=== PATIENT | male | born 1985 | race Caucasian/White ===

== ENCOUNTER 2016-06-03 07:49 | Emergency (ER) | payer SELFPAY ==
[2016-06-03] MEDS ORDERED: ACETAMINOPHEN 325 MG TABLET PO ONE (08:13)
--- NOTE | 2016-06-03 08:15 | ER Document Report ---
HPI - HPI Patient complains to provider of: fall Onset: Other - 2 days ago Onset/Duration: Persistent Quality of pain: Achy Pain Level: 4 Context: Patient states that he tripped over a toy and fell down 12 stairs in his house 2 days ago. Patient states that he fell face first down his stairs and hit his head on a door when he landed. Patient does report that he had a brief loss of consciousness 2 days ago but none since then. Patient states that yesterday he had some nausea and vomiting with a nosebleed that he attributes to the vomiting. Patient denies any nausea, vomiting or epistaxis today. Patient states that whenever he woke up today he had white dots in his field of vision for about 5 minutes which worried him and prompted him to call EMS today as his mother was at work and cannot bring him to the hospital. Patient states that his vision has since returned to normal but he continues with frontal head pain and left lateral neck pain. Patient states that light does make his headache pain worse. Exacerbated by: Other - Light Relieved by: Denies Similar symptoms previously: No Recently seen / treated by doctor: No - ROS ROS below otherwise negative: Yes Systems Reviewed and Negative: Yes All other systems reviewed and negative - CONSTITUTIONAL Constitutional: DENIES: Fever, Chills - EENT EENT: REPORTS: Eye problems. DENIES: Sore Throat - NEURO Neurology: REPORTS: Headache. DENIES: Weakness - CARDIOVASCULAR Cardiovascular: DENIES: Chest pain - RESPIRATORY Respiratory: DENIES: Trouble Breathing, Coughing - GASTROINTESTINAL Gastrointestinal: DENIES: Abdominal Pain, Nausea, Patient vomiting - MUSCULOSKELETAL Musculoskeletal: REPORTS: Neck Pain. 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 IN LAST 30 DAYS: No - HEENT HEENT: Atraumatic, Normal ENT Exam, Normocephalic, PERRLA Notes: No hemotympanum, no raccoon or Klein signs - NECK Neck: Other - Patient with left paraspinal cervical tenderness, no midline step- off, tenderness, or deformity. negative: Lymphadenopathy-Left, Lymphadenopathy- Right - RESPIRATORY Respiratory: Breath Sounds Normal, No Respiratory Distress O2 Sat by Pulse Oximetry: 96 - CARDIOVASCULAR Cardiovascular: Regular Rate, Regular Rhythm, No Murmur - BACK Back: Normal Inspection. negative: CVA Tenderness-Right, CVA Tenderness-Left Notes: No spinal midline tenderness, step-off, or deformity - MUSCULOSKELETAL/EXTREMETIES Musculoskeletal/Extremeties: CHENTE GREY - NEURO Level of Consciousness: Awake, Alert, Appropriate Motor/Sensory: No Motor Deficit, No Sensory Deficit - DERM Integumentary: Warm, Dry, No Rash Course - Re-evaluation Re-evalutation: 06/03/16 08:[address] Saucedo who agrees with plan for CT imaging 06/03/16 09:12 Discussed worsening signs or symptoms that patient should return immediately for. Patient verbalized understanding and agrees with plan of care. - Vital Signs Vital signs: Temp Pulse Resp BP Pulse Ox 98.5 F 95 18 146/95 H 96 06/03/16 07:56 06/03/16 07:56 06/03/16 07:56 06/03/16 07:56 06/03/16 07:56 - Diagnostic Test Radiology reviewed: Reports reviewed Discharge - Discharge Clinical Impression: Elevated blood pressure reading Head injury Qualifiers: Encounter type: initial encounter Qualified Code(s): S09.90XA - Unspecified injury of head, initial encounter Cervical strain, acute Qualifiers: Encounter type: initial encounter Qualified Code(s): S16.1XXA - Strain of muscle, fascia and tendon at neck level, initial encounter Condition: Stable Disposition: HOME, SELF-CARE Instructions: Head Injury Precautions ([facility]), Neck Injury (Cervical Strain) ([facility] ), Acetaminophen Additional Instructions: Return immediately for any new or worsening symptoms Followup with your primary care provider, call tomorrow to make a followup appointment Your blood pressure was elevated today, recheck with primary doctor in 2 days to have this reevaluated. Prescriptions: Naproxen [Naprosyn 250 Nmg Tablet] 1 tab PO BID #14 tablet Forms: Elevated Blood Pressure Referrals: [facility] [Provider Group] - Follow up tomorrow
[2016-06-03 09:19] VITALS: BP 127/96
== END 2016-06-03 09:11 | disposition home or self-care (01) ==
LOC: ER 07:49
DX: S09.90XA Unspecified injury of head, initial encounter (principal); S16.1XXA Strain of muscle, fascia and tendon at neck level, initial encounter; R03.0 Elevated blood-pressure reading, without diagnosis of hypertension; R11.2 Nausea with vomiting, unspecified; W10.9XXA Fall (on) (from) unspecified stairs and steps, initial encounter; F17.210 Nicotine dependence, cigarettes, uncomplicated
CPT/HCPCS: 70450; 72125; 99284

== ENCOUNTER 2016-08-22 10:59 | Inpatient (IN) | payer SELFPAY ==
[2016-08-22 12:07] LABS: BLOOD UREA NITROGEN 9 mg/dL (7-20); CALCIUM 9.7 mg/dL (8.4-10.2); CARBON DIOXIDE 16 mmol/L (22-30); CHLORIDE 95 mmol/L (98-107); CREATININE RESULT 0.95 mg/dL (0.52-1.25); GLUCOSE 203 mg/dL (75-110); POTASSIUM 4.3 mmol/L (3.6-5.0)
[2016-08-22 12:08] LABS: ALCOHOL < 10 mg/dL (NONE DETECTED)
[2016-08-22 12:15] LABS: APPEARANCE,URINE SLIGHTLY-CLOUDY; BILIRUBIN,URINE NEGATIVE (NEGATIVE); GLUCOSE, URINE NEGATIVE (NEGATIVE); KETONES,URINE 20 mg/dL (NEGATIVE); LEUKOCYTE ESTERASE,URINE NEGATIVE (NEGATIVE); NITRITE,URINE NEGATIVE (NEGATIVE); PROTEIN,URINE >=500 mg/dL (NEGATIVE); URINE SPECIFIC GRAVITY 1.026; UROBILINOGEN,URINE NEGATIVE mg/dL (<2.0)
[2016-08-22 12:16] LABS: SODIUM 132.8 mmol/L (137-145)
[2016-08-22 12:20] LABS: CREATINE KINASE MB 0.97 ng/mL (<4.55)
[2016-08-22 12:21] LABS: ANION GAP 22 (5-19); TROPONIN I < 0.012 ng/mL
[2016-08-22 12:24] LABS: URINE BARBITURATES SCREEN NEGATIVE; URINE METHADONE SCREEN NEGATIVE; URINE OPIATES LOW NEGATIVE; URINE PHENCYCLIDINE SCREEN NEGATIVE
[2016-08-22] MEDS ORDERED: LORAZEPAM INJ 2 MG/1 ML VIAL IV ONE (12:40)
--- NOTE | 2016-08-22 12:55 | ER Document Report ---
ED Seizure - General Mode of Arrival: Medic Information source: Patient - HPI Patient complains to provider of: History of seizures - alcohol withdrawal related Preceding symptoms/context: Other - see notes above Injuries: Bit tongue Associated Symptoms: Other - see notes above <MARLENE POZO - Last Filed: 08/22/16 12:40> <DELPHINEGINO - Last Filed: 08/22/16 14:32> - General Chief Complaint: Probable Seizure Stated Complaint: POSSIBLE SEIZURES Time Seen by Provider: 08/22/16 12:35 Notes: 30 year old male with history of seizures related to alcohol withdrawal (3-4 episodes in past 2 years) presents to the ED via EMS after having a seizure earlier this morning. Patient reports he last had alcohol 5 days ago and states that he just wanted to quit. Patient has tried multiple times in the past to quit with the most recent a couple months ago which also resulted in a seizure. Patient has tried to receive in-patient care by [facility], but relapsed again shortly after. Patient reports that today he saw a '[place] and ran down to his mom downstairs and told her that he was about to have a seizure. Patient had a seizure and states that he bit his tongue. Patient also complains of left shoulder pain and states that he believes he has dislocated it since he has a history (5-6 episodes) of left shoulder dislocation. Patient reports that he is able to reduce his shoulder on his own, but was unable to this time. Patient has not seen any provider regarding his shoulder. Patient does not have a primary care provider. (MARLENE POZO) - Related Data Allergies/Adverse Reactions: No Known Allergies Allergy (Verified 06/03/16 07:57) Past Medical History - General Information source: Patient - Social History Smoking Status: Current Every Day Smoker Frequency of alcohol use: Heavy - 1L of liquor daily. Chronic drinking since 27. Drug Abuse: None Family History: Reviewed & Not Pertinent Neurological Medical History: Reports: Hx Seizures - with ETOH withdrawal Past Surgical History: Reports: Hx Tonsillectomy - Immunizations Hx Diphtheria, Pertussis, Tetanus Vaccination: Yes <MARLENE POZO - Last Filed: 08/22/16 12:40> Review of Systems - Review of Systems Constitutional: No symptoms reported EENT: No symptoms reported Cardiovascular: No symptoms reported Respiratory: No symptoms reported Gastrointestinal: No symptoms reported. denies: Vomiting, Blood in vomit Genitourinary: No symptoms reported Male Genitourinary: No symptoms reported Musculoskeletal: See HPI, Other - left shoulder pain Skin: No symptoms reported Hematologic/Lymphatic: No symptoms reported Neurological/Psychological: See HPI, Seizure -: Yes All other systems reviewed and negative <MARLENE POZO - Last Filed: 08/22/16 12:40> Physical Exam - General General appearance: Alert, Other - Unkempt In distress: None - HEENT Head: Normocephalic, Atraumatic, Other - no external signs of trauma Eyes: Normal Extraocular movements intact: Yes Pupils: PERRL Neck: Normal - Respiratory Respiratory status: No respiratory distress Breath sounds: Normal - Cardiovascular Rhythm: Regular Heart sounds: Normal auscultation Pulses: Normal: Radial - Abdominal Inspection: Normal Distension: No distension Tenderness: Nontender - Back Back: Normal - Extremities General upper extremity: Normal inspection - complains of left shoulder pain and attempts to place shouler back in place, Normal ROM General lower extremity: Normal inspection, Normal ROM - Neurological Neuro grossly intact: Yes Cognition: Normal Orientation: AAOx4 [place] Coma Scale Eye Opening: Spontaneous [place] Coma Scale Verbal: Oriented [place] Coma Scale Motor: Obeys Commands Germán Coma Scale Total: 15 Speech: Normal - Psychological Associated symptoms: Normal affect, Normal mood - Skin Skin Temperature: Warm Skin Moisture: Dry Skin Color: Normal <MARLENE POZO - Last Filed: 08/22/16 12:40> Course - Laboratory Result Diagrams: 08/22/16 11:13 08/22/16 11:13 <MARLENE POZO - Last Filed: 08/22/16 12:40> - Laboratory Result Diagrams: 08/22/16 13:19 08/22/16 11:13 <GINO AKERS - Last Filed: 08/22/16 14:32> - Re-evaluation Re-evalutation: 08/22/16 14:30 Patient presents to the emergency department at their his mother called EMS chief complaint seizure. Patient has a history of alcoholism stopped going about 4-5 days ago and has had withdrawal symptoms where he sees about 3-4 times in the past 2 years. He has also been inpatient at [facility] a few months ago was sent home with [employer] which worked temporarily. He says he normally drinks a liter of rum a day. He denies any substance abuse history says his left shoulder is bothering him and he has dislocated multiple times in the past. On examination he is unkempt but alert and oriented 3 in no acute distress blood pressure is stable he slightly tachycardic no respiratory distress left shoulder there is tenderness to the lateral aspect but no obvious swelling deformity limited range of motion due to pain radial ulnar and axillary median nerve intact good pulses and sensation. Heart lungs abdomen is nonacute. Laboratory evaluation EKG showed sinus rhythm no acute electrolyte abnormalities he is dehydrated given IV fluids banana bag and Ativan. No active seizures within the emergency department x-ray of the left shoulder shows a greater tuberosity fracture. Placed him in a sling and swath for that. Spoke with Dr. Leach this can admit patient to the hospital. Do not have orthopedic remote operations producer today we do have orthopedic remote operations producer tomorrow and if he wants to do inpatient evaluation consultation for the shoulder injury. At this time he is admitted to the hospital in stable condition. (GINO AKERS) - Vital Signs Vital signs: Temp Pulse Resp BP Pulse Ox 98.8 F 18 123/76 94 08/22/16 11:18 08/22/16 14:01 08/22/16 14:01 08/22/16 14:01 - Laboratory Laboratory results interpreted by tn: 08/22/16 08/22/16 08/22/16 11:13 11:37 13:19 RDW 16.3 H Plt Count 84 L Seg Neuts % (Manual) 84 H Lymphocytes % (Manual) 5 L Monocytes % (Manual) 2 L Abs Neuts (Manual) 8.7 H Sodium 132.8 L Chloride 95 L Carbon Dioxide 16 L Anion Gap 22 H Glucose 203 H Urine Protein >=500 H Urine Ketones 20 H Urine Ascorbic Acid 40 H Salicylates < 1.0 L Acetaminophen < 10 L Critical Care Note - Critical Care Note Total time excluding time spent on procedures (mins): 55 <GINO AKERS - Last Filed: 08/22/16 14:32> Discharge <MARLENE POZO - Last Filed: 08/22/16 12:40> - Discharge Admitting Provider: Hospitalist Unit Admitted: IMCU <GINO AKERS - Last Filed: 08/22/16 14:32> - Discharge Clinical Impression: alcohol withdrawl seizure, acute dehydration, left closed shoulder fracture Condition: Stable Disposition: ADMITTED INPATIENT Scribe Attestation: 08/22/16 14:29 I personally performed the services described in the documentation reviewed the documentation recorded by my scribe in my presence and it accurately and completely records my words and actions (GINO AKERS) Scribe Documentation - Scribe Written by Scribe:: Christina Lechuga, 08/22/2016 1311 acting as scribe for :: Delphine <MARLENE POZO - Last Filed: 08/22/16 12:40>
[2016-08-22 14:00] LABS: HEMATOCRIT 49.5 % (37.9-51.0); HEMOGLOBIN 16.6 g/dL (13.5-17.0); HGB HCT DIFFERENCE 0.3; MEAN CORPUSCULAR HEMOGLOBIN 31.6 pg (27.0-33.4); MEAN CORPUSCULAR HGB CONC 33.6 g/dL (32.0-36.0); MEAN CORPUSCULAR VOLUME 94 fl (80-97); RED BLOOD COUNT 5.27 10^6/uL (4.35-5.55); RED CELL DISTRIBUTION WIDTH 16.3 % (11.5-14.0); WHITE BLOOD COUNT 9.8 10^3/uL (4.0-10.5)
[2016-08-22 14:04] LABS: BAND NEUTROPHILS % (MANUAL) 5 % (3-5); BASOPHILS % (MANUAL) 0 % (0-2); EOSINOPHILS % (MANUAL) 1 % (0-6); LYMPHOCYTES % (MANUAL) 5 % (13-45); TOTAL CELLS COUNTED 100
[2016-08-22 14:05] LABS: ANISOCYTOSIS 1+; POLYCHROMASIA SLIGHT; TOXIC VACUOLATION PRESENT
[2016-08-22] MEDS ORDERED: OXYCODONE-ACETAMINOPHEN 5-325 MG TABLET PO ONE (14:32)
[2016-08-22] MEDS ORDERED: DEXTROSE 5%-NORMAL SALINE 1,000 ML IV PRN (16:10)
[2016-08-22] MEDS ORDERED: ONDANSETRON HCL INJ/PF 4 MG/2 ML SDV IV PRN (16:11)
[2016-08-22] MEDS ORDERED: GLUCAGON,HUMAN RECOMB 1 MG INJ SUBCUT PRN (16:11)
[2016-08-22] MEDS ORDERED: DEXTROSE 40% GEL 15 GM TUBE PO PRN ×2 (16:11)
[2016-08-22] MEDS ORDERED: DEXTROSE 50%-WATER 25 GM/50 ML DISP.SYRIN IV PRN ×2 (16:11)
[2016-08-22] MEDS: THIAMINE HCL 100 MG in NORMAL SALINE 50 ML IV SCH (16:43)
[2016-08-22 17:56] LABS: ALANINE AMINOTRANSFERASE 95 U/L (21-72); ALBUMIN 4.5 g/dL (3.5-5.0); ALKALINE PHOSPHATASE 97 U/L (38-126); ASPARTATE AMINO TRANSFERASE 137 U/L (17-59); BILIRUBIN,DIRECT 0.5 mg/dL (0.0-0.4); BILIRUBIN,TOTAL 0.8 mg/dL (0.2-1.3); TOTAL PROTEIN 7.8 g/dL (6.3-8.2)
[2016-08-22] MEDS ORDERED: NORMAL SALINE 1000 ML 1,000 ML with POTASSIUM CHLORIDE 20 MEQ, MAGNESIUM SULFATE 8 MEQ,... IV SCH ×5 (18:00)
[2016-08-22] MEDS: OXYCODONE HCL IR 5 MG TABLET PO PRN (18:28)
[2016-08-22] MEDS: ACETAMINOPHEN 325 MG TABLET PO PRN (18:29)
--- NOTE | 2016-08-22 20:42 | HISTORY AND PHYSICAL E ---
History and Physical NAME: MANISHA DIALLO : 1985 AGE: 30Y ADMITTED: 08/22/2016 ROOM: ED20 TIME OF ADMISSION: 1700 hours. PRIMARY CARE PROVIDER: None. CHIEF COMPLAINT: Seizure, left shoulder pain. HISTORY OF PRESENT ILLNESS: This is a 30-year-old male with a history of heavy alcohol abuse and prior history of accidental overdose and involuntary commitment who presents after being abstinence from alcohol for 5 days. Today, he started noticing some visual hallucinations and subsequently had a seizure and fall. He presents with left shoulder pain after the seizure and also a tongue injury presumably from biting his tongue. PAST MEDICAL HISTORY: Alcohol abuse. PAST SURGICAL HISTORY: None. SOCIAL HISTORY: He drinks heavily. He smokes. He denies illegal drug use. 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 FAMILY HISTORY: Positive for anxiety. MEDICATIONS: None. ALLERGIES: No known drug allergies. CODE STATUS: FULL CODE STATUS. REVIEW OF SYSTEMS: He denies fevers, chills, weight loss, weight gain, visual disturbance, headache, hearing loss, dyspnea, cough, hemoptysis, pleurisy, chest pain, paroxysmal nocturnal dyspnea, orthopnea, edema, abdominal pain, nausea, vomiting, diarrhea, constipation, hematemesis, dysuria, urinary urgency or frequency, rashes, wounds, joint pain, joint swelling, focal weakness or numbness, dizziness, polydipsia, polyuria, heat or cold intolerance, depression, anxiety. He did have visual hallucinations earlier in the day. He denies bleeding or bruising. PHYSICAL EXAMINATION: VITAL SIGNS: Temperature 98.9. Blood pressure 125/66. Respiratory rate 15. O2 saturation 97%. GENERAL: He is alert and oriented in no acute distress, answers questions appropriately. HEENT: Normocephalic. Sclerae anicteric. Conjunctivae clear. Extraocular movements intact. Pupils are equal, round, and reactive to light and accommodation. Oropharynx has moist mucous membranes. NECK: Midline trachea. No thyromegaly. RESPIRATORY: Clear to auscultation. No wheezes or rhonchi. CARDIAC: Regular rate and rhythm. No murmurs, gallops, rubs. ABDOMEN: Soft, nontender, nondistended. Positive bowel sounds. No rebound, no guarding. EXTREMITIES: No edema, cyanosis, clubbing. MUSCULOSKELETAL: He has a sling to his left arm. He has pain with any range of motion of his left arm. VASCULAR: He has good radial pulses both hands. NEUROLOGIC: He has good tactile sensation in both upper extremities. He is alert. He is oriented to person, place, and time. Normal speech. Cranial nerves intact. SKIN EXAMINATION: No rashes, wounds, skin lesions. PSYCHIATRIC: Appropriate mood and affect at the time of my evaluation. LABORATORIES/IMAGING: Head CT shows maxillary sinus disease. No acute intracranial process. Left shoulder x-ray shows fracture of the greater tuberosity of the humerus. CBC: White blood count 9.8, hemoglobin 16.6, hematocrit 49.5, platelet count 84. Sodium 132, potassium 4.3, chloride 95, bicarbonate 16, BUN 9, creatinine 0.9, glucose 203, calcium 9.7. Magnesium 1.9. Drug screen negative. Alcohol level less than 10. ASSESSMENT AND PLAN: 1. Seizure. The patient has had prior seizures mostly associated with alcohol use/withdrawal. We will place him in the hospital, put him on seizure precautions. He states he has had some seizures during times when he has not been withdrawing from alcohol so I would like to obtain an EEG as well. Head CT is negative. 2. Alcohol abuse/withdrawal. P.r.n. Ativan. IV thiamine. Check liver function tests. 3. Left shoulder fracture. The patient is immobilized in a sling at this time. There is no Orthopedics director television today, but I will consult them whenever they are on the call schedule. 4. Hyponatremia likely secondary to alcohol abuse. The patient will be given isotonic saline, but mostly this will correct with abstinence from alcohol. 5. Thrombocytopenia. I will avoid pharmacologic deep venous thrombosis prophylaxis until platelet count improves. 60 minutes spent on admission. DICTATING PHYSICIAN: LAKSHMI SCHULZ M.D. [id number] PHY#: [id number] ID: [id number] JOB#: [id number] ACCT: [id number] cc: >
[2016-08-22] MEDS ORDERED: HEPARIN SOD (PORCINE) 5,000 UNIT/ML 1 ML SYRINGE SUBCUT SCH (22:00)
[2016-08-23] MEDS: ACETAMINOPHEN 325 MG TABLET PO PRN ×3 (03:08→15:41)
[2016-08-23] MEDS: OXYCODONE HCL IR 5 MG TABLET PO PRN ×3 (03:26→21:24)
[2016-08-23] MEDS: LORAZEPAM INJ 2 MG/1 ML VIAL IV PRN ×5 (04:33→22:30)
[2016-08-23 06:48] LABS: ABSOLUTE LYMPHOCYTES (AUTO) 0.8 10^3/uL (0.5-4.7); ABSOLUTE MONOCYTES (AUTO) 0.4 10^3/uL (0.1-1.4); ABSOLUTE NEUT (AUTO) 5.4 10^3/uL (1.7-8.2); BASOPHILS % (AUTO) 0.3 % (0-2); EOSINOPHILS % (AUTO) 0.4 % (0-6); HEMATOCRIT 43.5 % (37.9-51.0); LYMPHOCYTES % (AUTO) 11.6 % (13-45); MEAN CORPUSCULAR HEMOGLOBIN 31.8 pg (27.0-33.4); MEAN CORPUSCULAR HGB CONC 33.4 g/dL (32.0-36.0); MEAN CORPUSCULAR VOLUME 95 fl (80-97); MONOCYTES % (AUTO) 6.6 % (3-13); RED BLOOD COUNT 4.57 10^6/uL (4.35-5.55); RED CELL DISTRIBUTION WIDTH 16.2 % (11.5-14.0); SEGMENTED NEUTROPHILS % (AUTO) 81.1 % (42-78); WHITE BLOOD COUNT 6.7 10^3/uL (4.0-10.5)
[2016-08-23 06:50] LABS: BLOOD UREA NITROGEN 8 mg/dL (7-20); CALCIUM 8.8 mg/dL (8.4-10.2); CHLORIDE 99 mmol/L (98-107); CREATININE RESULT 0.85 mg/dL (0.52-1.25); GLUCOSE 98 mg/dL (75-110); MAGNESIUM 2.2 mg/dL (1.6-2.3); PHOSPHORUS 3.1 mg/dL (2.5-4.5); POTASSIUM 4.1 mmol/L (3.6-5.0); SODIUM 132.5 mmol/L (137-145)
[2016-08-23 06:58] LABS: ANION GAP 9 (5-19)
[2016-08-23 06:59] LABS: CARBON DIOXIDE 25 mmol/L (22-30)
[2016-08-23 07:08] LABS: HEMOGLOBIN 14.5 g/dL (13.5-17.0)
--- NOTE | 2016-08-23 07:12 | EKG REPORT ---
SEVERITY:- NORMAL ECG - SINUS RHYTHM : Confirmed by: Porsha Dickens MD 23-Aug-2016 07:11:20
[2016-08-23] MEDS ORDERED: FAMOTIDINE INJ/PF 20 MG/2 ML SDV IV ONE (13:00)
[2016-08-23] MEDS: FAMOTIDINE INJ/PF 20 MG/2 ML SDV IV SCH ×2 (13:44→21:24)
[2016-08-23] MEDS ORDERED: CEFTRIAXONE 1 GM/D5W RTU 1 GM/50 ML RTUPB IV SCH ×2 (14:00→18:00)
--- NOTE | 2016-08-23 17:13 | PDOC CONSULTATION ---
History of Present Illness Admission Date/PCP: 08/22/16 16:11 History of Present Illness: MANISHA DIALLO is a 30 year old male with a seizure. States after the seizure he sustained a fall onto his left shoulder 08/22/16. Patient was brought to the emergency room for workup of his seizure. He states he has seizures approximately 2-3 times a month. Denies previous shoulder issues or injury. Patient states the shoulder is worse with any motion. Denies numbness or tingling. Current pain 10/14. Past Medical History Neurological Medical History: Reports: Seizures - with ETOH withdrawal Past Surgical History Past Surgical History: Reports: Tonsillectomy Social History Smoking Status: Current Every Day Smoker Cigarettes Packs Per Day: 0.5 Frequency of Alcohol Use: Heavy Hx Recreational Drug Use: No Family History Family History: Reviewed & Not Pertinent Parental Family History Reviewed: No Children Family History Reviewed: No Sibling(s) Family History Reviewed.: No Medication/Allergy Home Medications: Hydroxyzine Pamoate [Vistaril 50 mg Capsule] 50 mg PO BID 08/22/16 Trazodone HCl [Desyrel] 100 mg PO QHS 08/22/16 Venlafaxine HCl ER [Effexor Xr 75 mg Cap.sr] 75 mg PO QAM 08/22/16 Allergies/Adverse Reactions: No Known Allergies Allergy (Verified 06/03/16 07:57) Review of Systems Constitutional: PRESENT: night sweats. ABSENT: chills, fever(s), headache(s), weight gain, weight loss Eyes: ABSENT: visual disturbances Ears: ABSENT: hearing changes Cardiovascular: ABSENT: chest pain, dyspnea on exertion, edema, orthropnea, palpitations Respiratory: ABSENT: cough, hemoptysis Gastrointestinal: ABSENT: abdominal pain, constipation, diarrhea, hematemesis, hematochezia, nausea, vomiting Genitourinary: ABSENT: dysuria, hematuria Musculoskeletal: PRESENT: as per HPI Integumentary: ABSENT: rash, wounds Neurological: PRESENT: convulsions. ABSENT: abnormal gait, abnormal speech, confusion, dizziness, focal weakness, syncope Psychiatric: ABSENT: anxiety, depression, homidical ideation, suicidal ideation Endocrine: ABSENT: cold intolerance, heat intolerance, menstrual abnormalities, polydipsia, polyuria Hematologic/Lymphatic: ABSENT: easy bleeding, easy bruising, lymphadenopathy Physical Exam Vital Signs: Temp Pulse Resp BP Pulse Ox 101.0 F H 141 H 20 146/98 H 99 08/23/16 16:28 08/23/16 16:28 08/23/16 16:28 08/23/16 16:28 08/23/16 16:28 Intake & Output 08/22/16 08/23/16 08/24/16 06:59 06:59 06:59 Weight 95.254 kg General appearance: PRESENT: no acute distress, well-developed, well-nourished Head exam: PRESENT: atraumatic, normocephalic Eye exam: PRESENT: conjunctiva pink, EOMI, PERRLA. ABSENT: scleral icterus Ear exam: PRESENT: normal external ear exam Mouth exam: PRESENT: moist, tongue midline Neck exam: PRESENT: full ROM. ABSENT: carotid bruit, JVD, lymphadenopathy, thyromegaly Cardiovascular exam: PRESENT: RRR. ABSENT: diastolic murmur, rubs, systolic murmur Pulses: PRESENT: normal dorsalis pedis pul, +2 pedal pulses bilateral Vascular exam: PRESENT: normal capillary refill GI/Abdominal exam: PRESENT: normal bowel sounds, soft. ABSENT: distended, guarding, mass, organolmegaly, rebound, tenderness Rectal exam: PRESENT: deferred Musculoskeletal exam: PRESENT: other - Left shoulder: Tenderness palpation laterally along the proximal humerus. Intact elbow wrist and hand range of motion. No sensory deficits. Mild swelling. No pain with passive stretch. No evidence of deformity. Neurological exam: PRESENT: alert, awake, oriented to person, oriented to place , oriented to time, oriented to situation, CN II-XII grossly intact. ABSENT: motor sensory deficit Psychiatric exam: PRESENT: appropriate affect, normal mood. ABSENT: homicidal ideation, suicidal ideation Skin exam: PRESENT: dry, intact, warm. ABSENT: cyanosis, rash Results Laboratory Results: 08/23/16 06:27 08/23/16 06:27 08/23/16 08/23/16 06:27 06:27 WBC 6.7 RBC 4.57 Hgb 14.5 D Hct 43.5 MCV 95 MCH 31.8 MCHC 33.4 RDW 16.2 H Plt Count 57 L Seg Neutrophils % 81.1 H Lymphocytes % 11.6 L Monocytes % 6.6 Eosinophils % 0.4 Basophils % 0.3 Absolute Neutrophils 5.4 Absolute Lymphocytes 0.8 Absolute Monocytes 0.4 Absolute Eosinophils 0.0 Absolute Basophils 0.0 Sodium 132.5 L Potassium 4.1 Chloride 99 Carbon Dioxide 25 Anion Gap 9 BUN 8 Creatinine 0.85 Est GFR ( Amer) > 60 Est GFR (Non-Af Amer) > 60 Glucose 98 Calcium 8.8 Phosphorus 3.1 Magnesium 2.2 Impressions: Head CT 08/22/16 11:30 IMPRESSION: Bilateral maxillary sinus disease with no acute intracranial pathology. Shoulder X-Ray 08/22/16 12:39 IMPRESSION: Fracture of the greater tuberosity. Chest X-Ray 08/23/16 12:28 IMPRESSION: NO ACUTE RADIOGRAPHIC FINDING IN THE CHEST. Status: Image reviewed by me - I have the patient's radiographs of the left shoulder which demonstrate minimally displaced greater tuberosity fracture there is some mild displacement posterior and lateral. No evidence of dislocation. Assessment & Plan - Diagnosis (1) Fracture of greater tuberosity of left humerus Qualifiers: Encounter type: initial encounter Fracture type: closed Fracture alignment: nondisplaced Qualified Code(s): S42.255A - Nondisplaced fracture of greater tuberosity of left humerus, initial encounter for closed fracture Is this a current diagnosis for this admission?: YesPlan: X-rays demonstrate a displaced greater tuberosity fracture the current position of less than 5 mm of displacement would recommend conservative treatment. Patient will continue a sling. Will follow up in the office with me in 10-14 days.
[2016-08-23] MEDS: THIAMINE HCL 100 MG in NORMAL SALINE 50 ML IV SCH (19:38)
--- NOTE | 2016-08-23 19:57 | PROGRESS NOTE E ---
Progress Note NAME: MANISHA DIALLO : 1985 AGE: 30Y DATE: 08/23/2016 ROOM: 409 TIME: Time spent managing patient was 35 minutes. SUBJECTIVE: The patient has had no further seizures. He has been acting appropriately. He has had fevers. He denies any cough or shortness of breath. He has been having chills and sweats as well. OBJECTIVE: VITAL SIGNS: Temperature 99.9 currently, T-max 101.0. GENERAL: He is alert and oriented x3, in no acute distress. HEENT: Sclerae are nonicteric. Oropharynx has moist mucous membranes. He has a left-sided tongue laceration. NECK: Midline trachea. No adenopathy. RESPIRATORY: Clear to auscultation. No wheezing or rhonchi. CARDIAC: Regular rate and rhythm. No murmurs, gallops, or rubs. ABDOMEN: Soft, nontender, and nondistended. Positive bowel sounds. No rebound. No guarding. EXTREMITIES: No edema, cyanosis, or clubbing. DIAGNOSTIC DATA: Labs: White count 6.7, hemoglobin 14.5, platelets 57. Sodium 133, potassium 4.1, chloride 99, bicarb 25, BUN 8, creatinine 0.8. Chest x-ray shows no acute findings in the chest. ASSESSMENT AND PLAN: 1. SYSTEMIC INFLAMMATORY RESPONSE SYNDROME. MOST LIKELY SOURCE WOULD BE ASPIRATION PNEUMONITIS GIVEN THE PATIENT'S SEIZURES YESTERDAY. HOWEVER, HE HAS NO COUGH OR SHORTNESS OF BREATH AND HIS CHEST X-RAY IS NEGATIVE. I SUPPOSE HE COULD BE GETTING AN INFECTION OF HIS TONGUE LACERATION. I will start him on IV Rocephin for now. Check blood cultures. He was also noted incidentally, on his head CT, to have bilateral maxillary sinus disease. Rocephin should cover this for now. 2. SINUSITIS. IV Rocephin for now. 3. ALCOHOL ABUSE/WITHDRAWAL. Stable on p.r.n. Ativan and IV thiamine. 4. WITHDRAWAL RELATED SEIZURE. EEG is pending. Head CT was negative for intracranial process. 5. HYPONATREMIA. Likely secondary to alcohol abuse. 6. THROMBOCYTOPENIA. Likely secondary to alcohol abuse. 7. LEFT SHOULDER FRACTURE. The patient is immobilized in a sling at this time. Dr. Jones of orthopedics has been consulted. DICTATING PHYSICIAN: LAKSHMI SCHULZ M.D. [id number] PHY#: [id number] ID: [id number] JOB#: [id number] ACCT: [id number] cc: >
[2016-08-24] MEDS ORDERED: LORAZEPAM INJ 2 MG/1 ML VIAL IV PRN ×3 (00:17→00:19)
[2016-08-24] MEDS: LORAZEPAM INJ 2 MG/1 ML VIAL IV PRN (00:20)
[2016-08-24] MEDS: OXYCODONE HCL IR 5 MG TABLET PO PRN (03:57)
[2016-08-24 06:40] LABS: ANION GAP 11 (5-19); BLOOD UREA NITROGEN 13 mg/dL (7-20); CALCIUM 8.7 mg/dL (8.4-10.2); CARBON DIOXIDE 24 mmol/L (22-30); CHLORIDE 100 mmol/L (98-107); CREATININE RESULT 0.93 mg/dL (0.52-1.25); GLUCOSE 91 mg/dL (75-110); MAGNESIUM 2.1 mg/dL (1.6-2.3); PHOSPHORUS 3.7 mg/dL (2.5-4.5); POTASSIUM 3.7 mmol/L (3.6-5.0); SODIUM 135.1 mmol/L (137-145)
[2016-08-24 07:18] LABS: ABSOLUTE BASOPHILS # (AUTO) 0.1 10^3/uL (0.0-0.2); ABSOLUTE EOSINOPHILS # (AUTO) 0.1 10^3/uL (0.0-0.6); ABSOLUTE LYMPHOCYTES (AUTO) 1.5 10^3/uL (0.5-4.7); ABSOLUTE MONOCYTES (AUTO) 0.8 10^3/uL (0.1-1.4); ABSOLUTE NEUT (AUTO) 3.7 10^3/uL (1.7-8.2); BASOPHILS % (AUTO) 1.2 % (0-2); EOSINOPHILS % (AUTO) 1.2 % (0-6); HEMATOCRIT 43.4 % (37.9-51.0); HEMOGLOBIN 15.1 g/dL (13.5-17.0); HGB HCT DIFFERENCE 1.9; LYMPHOCYTES % (AUTO) 23.9 % (13-45); MEAN CORPUSCULAR HEMOGLOBIN 32.6 pg (27.0-33.4); MEAN CORPUSCULAR HGB CONC 34.7 g/dL (32.0-36.0); MEAN CORPUSCULAR VOLUME 94 fl (80-97); MONOCYTES % (AUTO) 12.7 % (3-13); RED BLOOD COUNT 4.63 10^6/uL (4.35-5.55); RED CELL DISTRIBUTION WIDTH 16.1 % (11.5-14.0); WHITE BLOOD COUNT 6.1 10^3/uL (4.0-10.5)
[2016-08-24] MEDS ORDERED: LORAZEPAM 1 MG TABLET PO PRN (08:43)
[2016-08-24] MEDS ORDERED: NICOTINE 21 MG/24 HR PATCH.TD24 TD PRN (08:57)
[2016-08-24] MEDS ORDERED: THIAMINE HCL 100 MG TABLET PO SCH (10:00)
[2016-08-24 10:28] VITALS: BP 128/87
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
== END 2016-08-24 11:41 | disposition home or self-care (01) | DRG 897 ==
LOC: ER 10:59 → EH 15:28 → UNDOADMIN 15:28 → EH 16:11 → 4N 08-23 16:27
DX: F10.239 Alcohol dependence with withdrawal, unspecified (principal); S42.252A Displaced fracture of greater tuberosity of left humerus, initial encounter for closed fracture; E87.1 Hypo-osmolality and hyponatremia; G40.909 Epilepsy, unspecified, not intractable, without status epilepticus; W19.XXXA Unspecified fall, initial encounter; F17.210 Nicotine dependence, cigarettes, uncomplicated; D69.6 Thrombocytopenia, unspecified; J32.0 Chronic maxillary sinusitis; E86.0 Dehydration; Z79.899 Other long term (current) drug therapy; Z81.8 Family history of other mental and behavioral disorders
CPT/HCPCS: 36415; 70450; 71010; 80048; 80076; 80307; 81001; 82553; 83735; 84100; 84484; 85025; 87040; 93005; 93010; 96374; 99291; J0696; J2060; J3411; J3475; J3480; J3490; J7030; L3650; S0028

== ENCOUNTER 2016-08-29 00:58 | Emergency (ER) | payer SELFPAY ==
[2016-08-29] MEDS ORDERED: DIAZEPAM 5 MG TABLET PO ONE (01:36)
[2016-08-29 02:08] LABS: ABSOLUTE BASOPHILS # (AUTO) 0.2 10^3/uL (0.0-0.2); ABSOLUTE EOSINOPHILS # (AUTO) 0.1 10^3/uL (0.0-0.6); ABSOLUTE LYMPHOCYTES (AUTO) 3.6 10^3/uL (0.5-4.7); ABSOLUTE MONOCYTES (AUTO) 0.9 10^3/uL (0.1-1.4); ABSOLUTE NEUT (AUTO) 3.4 10^3/uL (1.7-8.2); EOSINOPHILS % (AUTO) 0.9 % (0-6); HEMATOCRIT 44.6 % (37.9-51.0); HGB HCT DIFFERENCE 0.4; LYMPHOCYTES % (AUTO) 44.5 % (13-45); MEAN CORPUSCULAR HEMOGLOBIN 31.6 pg (27.0-33.4); MEAN CORPUSCULAR HGB CONC 33.6 g/dL (32.0-36.0); MEAN CORPUSCULAR VOLUME 94 fl (80-97); MONOCYTES % (AUTO) 10.7 % (3-13); RED BLOOD COUNT 4.73 10^6/uL (4.35-5.55); RED CELL DISTRIBUTION WIDTH 16.3 % (11.5-14.0); SEGMENTED NEUTROPHILS % (AUTO) 41.9 % (42-78); WHITE BLOOD COUNT 8.1 10^3/uL (4.0-10.5)
[2016-08-29 02:19] LABS: ALANINE AMINOTRANSFERASE 114 U/L (21-72); ALBUMIN 4.3 g/dL (3.5-5.0); ALCOHOL 285 mg/dL (NONE DETECTED); ALKALINE PHOSPHATASE 91 U/L (38-126); ANION GAP 16 (5-19); ASPARTATE AMINO TRANSFERASE 63 U/L (17-59); BILIRUBIN,DIRECT 0.3 mg/dL (0.0-0.4); BILIRUBIN,TOTAL 0.5 mg/dL (0.2-1.3); BLOOD UREA NITROGEN 9 mg/dL (7-20); CALCIUM 9.4 mg/dL (8.4-10.2); CARBON DIOXIDE 26 mmol/L (22-30); CHLORIDE 107 mmol/L (98-107); CREATININE RESULT 0.81 mg/dL (0.52-1.25); GLUCOSE 99 mg/dL (75-110); POTASSIUM 4.1 mmol/L (3.6-5.0); SODIUM 148.9 mmol/L (137-145); TOTAL PROTEIN 7.8 g/dL (6.3-8.2)
[2016-08-29] MEDS ORDERED: IBUPROFEN 600 MG TABLET PO ONE (02:19)
[2016-08-29] MEDS ORDERED: LIDOCAINE 5% (700 MG) TRANSDERMAL ADH..PATCH TP ONE (02:20)
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
[2016-08-29 02:42] LABS: APPEARANCE,URINE SLIGHTLY-CLOUDY; BILIRUBIN,URINE SMALL (NEGATIVE); GLUCOSE, URINE NEGATIVE (NEGATIVE); KETONES,URINE TRACE mg/dL (NEGATIVE); LEUKOCYTE ESTERASE,URINE NEGATIVE (NEGATIVE); NITRITE,URINE NEGATIVE (NEGATIVE); PROTEIN,URINE 100 mg/dL (NEGATIVE); URINE SPECIFIC GRAVITY 1.038
[2016-08-29 02:43] LABS: URINE BARBITURATES SCREEN NEGATIVE; URINE METHADONE SCREEN NEGATIVE; URINE OPIATES LOW NEGATIVE; URINE PHENCYCLIDINE SCREEN NEGATIVE
[2016-08-29] MEDS: LORAZEPAM 1 MG TABLET PO PRN ×3 (03:59→20:12)
--- NOTE | 2016-08-29 07:51 | EKG REPORT ---
SEVERITY:- OTHERWISE NORMAL ECG - SINUS TACHYCARDIA : Confirmed by: Valerio Rene MD 29-Aug-2016 07:50:56
[2016-08-29] MEDS ORDERED: ACETAMINOPHEN 325 MG TABLET PO ONE (08:21)
--- NOTE | 2016-08-29 10:50 | ER Document Report ---
Doctor's Note Notes: 08/29/16 10:47 : Rounds: Chart reviewed and patient interview. Basically, patient has an alcohol problem, seizures secondary to alcohol withdrawal in the past, depression, and a fracture of the greater tuberosity of the left humerus from a fall from a seizure, on August 23. Patient currently denies feeling suicidal. Lab studies were all normal with the exception of his alcohol level of 285. Vital signs are all normal. Patient is currently receiving Ativan as needed for possible withdrawal seizures. His left shoulder is quite ecchymotic. I reviewed the x-rays which showed only a fracture of the greater tuberosity of the humeral head. Patient has good pulses in the left hand and fingers and good capillary refill. Patient is medically stable for transfer or discharge. Kody Macdonald MD
[2016-08-29] MEDS: OXYCODONE HCL IR 5 MG TABLET PO PRN ×3 (11:48→20:13)
[2016-08-30] MEDS: OXYCODONE HCL IR 5 MG TABLET PO PRN ×2 (00:15→06:03)
[2016-08-30] MEDS: LORAZEPAM 1 MG TABLET PO PRN (06:03)
--- NOTE | 2016-08-30 09:26 | ER Document Report ---
Doctor's Note Notes: 08/30/16 09:26 Patient evaluated at bedside, resting comfortably on stretcher, no needs at this time, chart and lab findings were reviewed as well as vital signs, pending plan and disposition per mental health
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
[2016-08-30 11:59] VITALS: BP 130/75
== END 2016-08-30 12:05 | disposition home or self-care (01) ==
LOC: ER 00:58
DX: F31.9 Bipolar disorder, unspecified (principal); F10.10 Alcohol abuse, uncomplicated; R45.851 Suicidal ideations; R45.850 Homicidal ideations; S42.252A Displaced fracture of greater tuberosity of left humerus, initial encounter for closed fracture; W19.XXXA Unspecified fall, initial encounter; F17.200 Nicotine dependence, unspecified, uncomplicated
CPT/HCPCS: 36415; 80053; 80307; 81001; 85025; 93005; 93010; 99285

== ENCOUNTER 2016-09-02 13:29 | Emergency (ER) | payer SELFPAY ==
--- NOTE | 2016-09-02 14:13 | ER Document Report ---
ED General - General Chief Complaint: Suicidal Ideation Stated Complaint: SUICIDAL IDEATION Time Seen by Provider: 09/02/16 13:47 Mode of Arrival: Ambulatory Information source: Patient Notes: This is a 30-year-old man with a history of alcohol abuse, alcohol withdrawal seizures and a recent left shoulder fracture presents to the emergency room via EMS because of suicidal ideations in the setting of alcohol abuse. TRAVEL OUTSIDE OF THE [place] IN LAST 30 DAYS: No - HPI Onset: Just prior to arrival Onset/Duration: Gradual Quality of pain: No pain Severity: None Pain Level: Denies Associated symptoms: denies: Fever, Shortness of breath Exacerbated by: Denies Relieved by: Denies Similar symptoms previously: Yes Recently seen / treated by doctor: Yes - Related Data Allergies/Adverse Reactions: No Known Allergies Allergy (Verified 06/03/16 07:57) Past Medical History - General Information source: Patient - Social History Smoking Status: Current Every Day Smoker Cigarette use (# per day): Yes - 1 pack per day Chew tobacco use (# tins/day): No Frequency of alcohol use: None Drug Abuse: None Lives with: Family Family History: Reviewed & Not Pertinent - Past Medical History Cardiac Medical History: Reports: None Pulmonary Medical History: Reports: None Neurological Medical History: Reports: Hx Seizures - with ETOH withdrawal Endocrine Medical History: Reports: None Renal/ Medical History: Reports: None Malignancy Medical History: Reports None GI Medical History: Reports: None Musculoskeltal Medical History: Reports None Skin Medical History: Reports None Psychiatric Medical History: Reports: None Traumatic Medical History: Reports: None Infectious Medical History: Reports: None Past Surgical History: Reports: Hx Tonsillectomy - Immunizations Hx Diphtheria, Pertussis, Tetanus Vaccination: Yes Review of Systems - Review of Systems Constitutional: denies: Chills, Fever EENT: No symptoms reported Cardiovascular: No symptoms reported Respiratory: No symptoms reported Gastrointestinal: No symptoms reported Genitourinary: No symptoms reported Male Genitourinary: No symptoms reported Musculoskeletal: No symptoms reported Skin: No symptoms reported Hematologic/Lymphatic: No symptoms reported Neurological/Psychological: See HPI Physical Exam - Vital signs Vitals: Temp Pulse Resp BP Pulse Ox 98.0 F 97 16 134/82 H 94 09/02/16 13:37 09/02/16 13:37 09/02/16 13:37 09/02/16 13:37 09/02/16 13:37 Notes: Physical exam: GENERAL: 30-year-old man, alert and oriented 3, no acute distress. Intoxicated. HEAD: Atraumatic, normocephalic. EYES: Pupils equal round and reactive to light, extraocular movements intact, sclera anicteric, conjunctiva are normal. ENT: TMs normal, nares patent, oropharynx clear without exudates. Moist mucous membranes. NECK: Normal range of motion, supple without lymphadenopathy or JVD. LUNGS: Breath sounds clear to auscultation bilaterally and equal. No wheezes rales or rhonchi. HEART: Regular rate and rhythm without murmurs, rubs or gallops. ABDOMEN: Soft, normoactive bowel sounds. No tenderness to palpation. No guarding, no rebound. No masses appreciated. EXTREMITIES: Patient does have ecchymoses to the left humerus. NEUROLOGICAL: Cranial nerves II through XII grossly intact. Normal speech, normal gait. PSYCH: Normal mood, normal affect. SKIN: Warm, Dry, normal turgor, no rashes or lesions noted. Course - Re-evaluation Re-evalutation: 09/02/16 18:58 : This is a 30-year-old alcoholic with a history of alcohol withdrawal seizures and recent left shoulder fracture secondary to a fall in the setting of alcohol abuse. Patient is brought into the emergency room by EMS with depression and suicidal ideations in the setting of acute alcohol intoxication. His physical exam is remarkable for bruising to the left upper extremity. He is otherwise stable. His alcohol level was quite elevated and he is being observed. I have written for as needed Ativan because he is at risk of alcohol withdrawal seizures but his alcohol level does start to drop lower. Additionally, when he is clinically sober, he will need to be reevaluated for suicidal ideation. - Vital Signs Vital signs: Temp Pulse Resp BP Pulse Ox 98.0 F 95 20 134/82 H 94 09/02/16 13:41 09/02/16 13:41 09/02/16 13:41 09/02/16 13:41 09/02/16 13:41 - Laboratory Result Diagrams: 09/02/16 14:25 09/02/16 14:25 Laboratory results interpreted by me: 09/02/16 09/02/16 09/02/16 14:25 14:25 14:25 RDW 16.6 H Sodium 149.8 H Chloride 108 H AST 60 H Urine Blood SMALL H Salicylates < 1.0 L Acetaminophen < 10 L Serum Alcohol 372 H* Discharge - Discharge Clinical Impression: Suicidal ideation, Acute alcohol intoxication Clinical Impression: (Ruled Out): No ideation Condition: Stable Disposition: PSYCH HOSP/UNIT
[2016-09-02] MEDS ORDERED: ONDANSETRON 4 MG TAB.RAPDIS PO ONE (14:32)
[2016-09-02 14:41] LABS: ABSOLUTE BASOPHILS # (AUTO) 0.2 10^3/uL (0.0-0.2); ABSOLUTE LYMPHOCYTES (AUTO) 2.7 10^3/uL (0.5-4.7); ABSOLUTE MONOCYTES (AUTO) 0.5 10^3/uL (0.1-1.4); ABSOLUTE NEUT (AUTO) 5.7 10^3/uL (1.7-8.2); EOSINOPHILS % (AUTO) 0.3 % (0-6); HEMATOCRIT 46.2 % (37.9-51.0); HEMOGLOBIN 15.5 g/dL (13.5-17.0); HGB HCT DIFFERENCE 0.3; LYMPHOCYTES % (AUTO) 29.8 % (13-45); MEAN CORPUSCULAR HEMOGLOBIN 32.2 pg (27.0-33.4); MEAN CORPUSCULAR HGB CONC 33.7 g/dL (32.0-36.0); MEAN CORPUSCULAR VOLUME 96 fl (80-97); MONOCYTES % (AUTO) 5.1 % (3-13); RED BLOOD COUNT 4.82 10^6/uL (4.35-5.55); RED CELL DISTRIBUTION WIDTH 16.6 % (11.5-14.0); SEGMENTED NEUTROPHILS % (AUTO) 62.8 % (42-78); WHITE BLOOD COUNT 9.1 10^3/uL (4.0-10.5)
[2016-09-02] MEDS: LORAZEPAM 1 MG TABLET PO PRN ×2 (14:43→21:03)
[2016-09-02 14:46] LABS: APPEARANCE,URINE CLEAR; BILIRUBIN,URINE NEGATIVE (NEGATIVE); GLUCOSE, URINE NEGATIVE (NEGATIVE); KETONES,URINE NEGATIVE (NEGATIVE); LEUKOCYTE ESTERASE,URINE NEGATIVE (NEGATIVE); NITRITE,URINE NEGATIVE (NEGATIVE); PROTEIN,URINE NEGATIVE (NEGATIVE); URINE SPECIFIC GRAVITY 1.004; UROBILINOGEN,URINE NEGATIVE mg/dL (<2.0)
[2016-09-02 15:00] LABS: ALANINE AMINOTRANSFERASE 72 U/L (21-72); ALBUMIN 4.6 g/dL (3.5-5.0); ALKALINE PHOSPHATASE 110 U/L (38-126); ANION GAP 18 (5-19); ASPARTATE AMINO TRANSFERASE 60 U/L (17-59); BILIRUBIN,DIRECT 0.3 mg/dL (0.0-0.4); BILIRUBIN,TOTAL 0.6 mg/dL (0.2-1.3); BLOOD UREA NITROGEN 10 mg/dL (7-20); CALCIUM 9.5 mg/dL (8.4-10.2); CARBON DIOXIDE 24 mmol/L (22-30); CHLORIDE 108 mmol/L (98-107); CREATININE RESULT 0.83 mg/dL (0.52-1.25); GLUCOSE 85 mg/dL (75-110); POTASSIUM 4.5 mmol/L (3.6-5.0); SODIUM 149.8 mmol/L (137-145); TOTAL PROTEIN 8.2 g/dL (6.3-8.2)
[2016-09-02 15:01] LABS: URINE BARBITURATES SCREEN NEGATIVE; URINE METHADONE SCREEN NEGATIVE; URINE OPIATES LOW NEGATIVE; URINE PHENCYCLIDINE SCREEN NEGATIVE
[2016-09-02 15:10] LABS: ALCOHOL 372 mg/dL (NONE DETECTED)
--- NOTE | 2016-09-02 15:37 | PSYCHOLOGICAL NOTE ---
Psych Note - Psych Note Psych Note: Patient is a 30 year old male who presented seeking assistance for a psychiatric concern. Patient at this time is acutely intoxicated, with a BAL of 372. Will attempt to evaluate at a later time, closer to legal sobriety.
--- NOTE | 2016-09-02 21:13 | EKG REPORT ---
SEVERITY:- OTHERWISE NORMAL ECG - SINUS TACHYCARDIA : Confirmed by: Phyllis Alfonso 02-Sep-2016 21:11:48
[2016-09-03] MEDS: LORAZEPAM 1 MG TABLET PO PRN ×3 (06:09→17:05)
[2016-09-03] MEDS ORDERED: ACETAMINOPHEN 325 MG TABLET PO ONE (11:05)
--- NOTE | 2016-09-03 11:47 | RADIOLOGY REPORT (SQ) ---
EXAM DESCRIPTION: SHOULDER LEFT 2 OR MORE VIEWS COMPLETED DATE/TIME: 09/03/2016 11:24 am REASON FOR STUDY: recent fracture, fell again, increased pain COMPARISON: 08/22/2016 NUMBER OF VIEWS: Three views. TECHNIQUE: Internal rotation, external rotation, and Y view images acquired of the left shoulder. LIMITATIONS: None. FINDINGS: MINERALIZATION: Normal. BONES: There is a fracture of the greater tuberosity of the humeral head. The humeral neck is intact . JOINTS: No dislocation. VISUALIZED LUNGS AND RIBS: No pneumothorax. No rib fracture. SOFT TISSUES: No radiopaque foreign body. OTHER: No other significant finding. IMPRESSION: There is a fracture of the greater tuberosity that appears stable. TECHNICAL DOCUMENTATION: JOB ID: [id number]- All Rights Reserved
--- NOTE | 2016-09-03 14:52 | ER Document Report ---
ED Psych Disorder / Suicide - General Chief Complaint: ETOH Abuse Stated Complaint: SUICIDAL IDEATION Time Seen by Provider: 09/02/16 13:47 Mode of Arrival: Ambulatory Information source: Patient, Relative, [facility] Records TRAVEL OUTSIDE OF THE [place] 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 Patient initially complained of suicidal ideations, but was noted to be under the influence of alcohol during the statement. Patient today denies suicidal ideations. Patient reports she has no place to stay and does not know where he will go from here. Patient states he is agreeable to follow-up with substance abuse treatment, to include inpatient detox and or outpatient services. Patient acknowledges that he drinks daily, and drinks roughly 1 L of rum per day. Patient is known to this clinician in this department for numerous prior episodes of similar etiology. MotherGail states: the patient needs some psychiatric and dependence help. Mother states she has paid for a hotel for hi m x3 nights, and last night refused when he continued to delay going to get SA help. Mother states the patient called her yesterday, drunk, laying on the side of the road crying and saying he was going to kill himself. Mother states the patient has to stay at a motel and is not allowed to stay in her home due to his chronic alcohol abuse and aggressive behaviors while drunk. Mother states the patient was walking around with an air soft gun and flashing in front of his sister's child, and there is now a protection order preventing him from going to that home. Mother states, "this is ridiculous." She then demanded the names of this clinician, as well as supervising provider and consulting psychiatrist. She states he has mental issues and was diagnosed with Generalized Anxiety Disorder at [facility]. Patient is A&O. Mood is anxious with normal affect. Patient denies suicidal/ homicidal ideations, intent, plan, or means. Patient denies A/V H; delusions not noted. Thought processes were organized. Conversational speech was WNL. Intellectual abilities were estimated within average range. Attention and focus were fair. Insight, judgment, and impulse control were poor. Generalized Anxiety Disorder, per history Alcohol Use Disorder, Severe, per history Patient is psychiatrically cleared and recommended to follow-up with [facility] to voluntarily pursue alcohol detox. Patient does not meet criteria for involuntary commitment, as determined last night by the ER physician and concluded again today as this is an alcohol related incident. When sober, patient denies suicidal ideations. Patient has a lengthy history of similar episodes of similar etiology. I consulted with Dr. Ogden in regards to the care and management of this patient. - Related Data Allergies/Adverse Reactions: No Known Allergies Allergy (Verified 09/03/16 07:02) Past Medical History - General Information source: Patient - Social History Smoking Status: Current Every Day Smoker Cigarette use (# per day): Yes - 1 pack per day Chew tobacco use (# tins/day): No Frequency of alcohol use: None Drug Abuse: None Lives with: Family Family History: Reviewed & Not Pertinent Patient has suicidal ideation: No Patient has homicidal ideation: No - Past Medical History Cardiac Medical History: Reports: None Pulmonary Medical History: Reports: None Neurological Medical History: Reports: Hx Seizures - with ETOH withdrawal Endocrine Medical History: Reports: None Renal/ Medical History: Reports: None. Denies: Hx Peritoneal Dialysis Malignancy Medical History: Reports None GI Medical History: Reports: None Musculoskeltal Medical History: Reports None Skin Medical History: Reports None Psychiatric Medical History: Reports: None Traumatic Medical History: Reports: None Infectious Medical History: Reports: None Past Surgical History: Reports: Hx Tonsillectomy - Immunizations Hx Diphtheria, Pertussis, Tetanus Vaccination: Yes Physical Exam - Vital signs Vitals: Temp Pulse Resp BP Pulse Ox 98.0 F 97 16 134/82 H 94 09/02/16 13:37 09/02/16 13:37 09/02/16 13:37 09/02/16 13:37 09/02/16 13:37 Course - Vital Signs Vital signs: Temp Pulse Resp BP Pulse Ox 97.8 F 60 18 132/88 H 97 09/02/16 20:39 09/03/16 06:05 09/03/16 03:25 09/03/16 06:05 09/03/16 06:05 - Laboratory Result Diagrams: 09/02/16 14:25 09/02/16 14:25 Laboratory results interpreted by me: 09/02/16 09/02/16 09/02/16 14:25 14:25 14:25 RDW 16.6 H Sodium 149.8 H Chloride 108 H AST 60 H Urine Blood SMALL H Salicylates < 1.0 L Acetaminophen < 10 L Serum Alcohol 372 H* Discharge - Discharge Clinical Impression: Suicidal ideation, Acute alcohol intoxication Condition: Stable Disposition: HOME, SELF-CARE Additional Instructions: Acute Alcohol Intoxication Your evaluation revealed very high levels of alcohol. You can from drinking a large amount of alcohol rapidly! Further, there's the risk of falls , traffic accidents, and fights. A high portion (about 50 percent) of the serious injuries seen in hospital emergency rooms are caused by alcohol. Alcohol overdosage is usually due to an underlying emotional or psychiatric problem. You may benefit from counselling. If "binge" drinking is an ongoing problem for you, or if you drink ANY AMOUNT of alcohol EVERY day, you most likely have a tendency to alcoholism. You should avoid alcohol totally. We can refer you for treatment. Persons with alcohol problems are often also prone to other addictions -- you should discuss any use of medications or drugs with the doctor. You should be watched at home for the next several hours by someone who has not been drinking. Get extra fluids for the next 24 hours. Call the doctor if there is repeated vomiting, increasing headache, decreasing level of alertness, or any other worsening. Suicidal Ideation Suicidal ideation is a common medical term for thoughts about suicide, which may be as detailed as a formulated plan, without the suicidal act itself. Although most people who undergo suicidal ideation do not commit suicide, some go on to make suicide attempts. The range of suicidal ideation varies greatly from fleeting to detailed planning, role playing, and unsuccessful attempts. Please follow-up with [facility] and request detox placement. Referrals: [facility] [Provider Group] - Follow up as needed
[2016-09-03 16:49] VITALS: BP 134/86
== END 2016-09-03 17:52 | disposition home or self-care (01) ==
LOC: ER 13:29
DX: R45.851 Suicidal ideations (principal); F10.129 Alcohol abuse with intoxication, unspecified; F17.210 Nicotine dependence, cigarettes, uncomplicated
CPT/HCPCS: 93005; 99285; 36415; 80307 ×4; 83735; 85025; 80053; 81001; 73030; 93010; S0119

== ENCOUNTER 2016-11-02 20:59 | Emergency (ER) | payer OTHER ==
[2016-11-02] MEDS ORDERED: DIPH/PERTUSS(ACELL)/TETANUS VAC/PF 0.5 ML SYR (>=10YO) IM ONE (23:31)
--- NOTE | 2016-11-02 23:33 | ER Document Report ---
ED General - General Chief Complaint: Head Injury with LOC Stated Complaint: FALL Time Seen by Provider: 11/02/16 21:45 Notes: Patient is a 30-year-old male past medical history of polysubstance abuse although currently in [facility] who presents after falling and hitting his head on the toilet bowl. Patient states he tripped and fell when coming out of the top bunk hitting his head into the toilet. He did sustain a 1cm laceration to the left central scalp. Denies loss of consciousness, vomiting, weakness, numbness , or altered mental status. He does not take any coagulation. Does note a dull , constant, aching headache. Nothing improves or worsens the pain. His last tetanus shot was one year ago. TRAVEL OUTSIDE OF THE [place] IN LAST 30 DAYS: No - Related Data Allergies/Adverse Reactions: No Known Allergies Allergy (Verified 09/03/16 07:02) Past Medical History - General Information source: Patient - Social History Smoking Status: Former Smoker Frequency of alcohol use: Heavy Drug Abuse: None Family History: Reviewed & Not Pertinent Patient has suicidal ideation: No Patient has homicidal ideation: No Neurological Medical History: Reports: Hx Seizures - with ETOH withdrawal Renal/ Medical History: Denies: Hx Peritoneal Dialysis Past Surgical History: Reports: Hx Tonsillectomy - Immunizations Hx Diphtheria, Pertussis, Tetanus Vaccination: Yes Review of Systems - Review of Systems Notes: Constitutional: Negative for fever. Eyes: Negative for visual changes. ENT: Negative for facial injury Cardiovascular: Negative for chest injury. Respiratory: Negative for shortness of breath. Gastrointestinal: Negative for abdominal injury. Genitourinary: Negative for genital injury Musculoskeletal: Negative for back injury. Skin: Positive for laceration/abrasions. Neurological: Positive for head injury. Physical Exam - Vital signs Vitals: Temp Pulse Resp BP Pulse Ox 98.7 F 64 18 123/77 96 11/02/16 21:19 11/02/16 21:19 11/02/16 21:19 11/02/16 21:19 11/02/16 21:19 Interpretation: Normal Notes: PHYSICAL EXAMINATION: GENERAL: Well-appearing, no acute distress. HEAD: Atraumatic, normocephalic. EYES: Pupils equal round and reactive to light, extraocular movements intact, sclera anicteric, conjunctiva are normal. ENT: nares patent, no oral pharyngeal trauma. No hemotympanum, no Klein's sign , no raccoon eyes. NECK: No midline cervical spine tenderness. Patient able to move their head to 45 bilaterally without any discomfort. LUNGS: Breath sounds clear to auscultation bilaterally and equal. No wheezes rales or rhonchi. HEART: Regular rate and rhythm without murmurs. EXTREMITIES: Normal range of motion, no pitting or edema. No long bone deformities. BACK: No midline spinal tenderness, step-offs, or deformities. NEUROLOGICAL: Face symmetric. Tongue protrudes midline. Extraocular motions intact. Pupils are 2 mm and equally reactive. Normal speech, normal gait. 5 out of 5 strength in both the distal and proximal upper and lower extremities bilaterally. Sensation is grossly intact throughout. Finger to nose testing normal. Pronator drift normal. PSYCH: Normal mood, normal affect. SKIN: Warm, Dry, normal turgor, 1 cm laceration to the left central scalp Course - Re-evaluation Re-evalutation: 11/03/16 04:04 Presentation of head trauma in an otherwise well-appearing patient. No focal neurologic deficits on exam, no evidence of basilar skull fracture on exam without evidence of hemotympanum, raccoon eyes, or periauricular hematoma. No papilledema. Patient is not on anticoagulation. GCS is 15. No loss of consciousness. No episodes of vomiting. Patient is therefore negative via [place] head CT criteria and CT imaging will not be obtained at this time. Patient did have a 1 cm laceration to the left central scalp which was closed with a single staple without difficulty. His tetanus is already up-to-date. At this time will discharge with return precautions and follow-up recommendations. Verbal discharge instructions given a the bedside and opportunity for questions given. - Vital Signs Vital signs: Temp Pulse Resp BP Pulse Ox 98.7 F 77 18 112/78 98 11/02/16 21:19 11/02/16 23:43 11/02/16 23:43 11/02/16 23:43 11/02/16 23:43 Procedures - Laceration/Wound Repair Head Wound length (cm): 1 Wound's Depth, Shape: Superficial Laceration pre-procedure: Sterile PPE donned Wound explored: Clean Irrigated w/ Saline (mLs): 200 Wound Debrided: Minimal Wound Repaired With: Gopal - 1 Post-procedure wound care: Sterile dressing applied Post-procedure NV exam normal: Yes Complications: No Discharge - Discharge Clinical Impression: Head trauma Qualifiers: Encounter type: initial encounter Qualified Code(s): S09.90XA - Unspecified injury of head, initial encounter Scalp laceration Qualifiers: Encounter type: initial encounter Qualified Code(s): S01.01XA - Laceration without foreign body of scalp, initial encounter Condition: Good Disposition: HOME, SELF-CARE Additional Instructions: You have likely sustained a contusion (bruise) to your head. Symptoms to expect from a concussion include nausea, mild to moderate headache, difficulty concentrating or sleeping, and mild lightheadedness. These symptoms should improve over the next few days to weeks. Return to the emergency department or follow-up with your primary care doctor if your symptoms are not improving over this time. Signs of a more serious head injury include vomiting, severe headache, excessive sleepiness or confusion, and weakness or numbness in your face, arms or legs. Return immediately to the Emergency Department if you experience any of these more concerning symptoms. Rest, avoid strenuous physical or mental activity, and avoid activities that could potentially result in another head injury until all your symptoms from this head injury are completely resolved for at least 2-3 weeks. If you participate in sports, get cleared by your doctor or fitness trainer before returning to play. You may take ibuprofen or acetaminophen over the counter according to label instructions for mild headache or scalp soreness. Please return to your primary doctor, the ED, or an urgent care in 7 days for staple removal. Return immediately if you develop spreading redness around the wound, pus from the wound, worsening pain, or a fever of >100.4. Keep the area clean and dry. Wash gently with soap and water twice daily and cover with antibiotic ointment.
[2016-11-02 23:44] VITALS: BP 112/78
== END 2016-11-03 00:11 | disposition home or self-care (01) ==
LOC: ER 20:59
PROC: 0HQ0XZZ Repair Scalp Skin, External Approach (ICD-10-PCS; principal; 2016-11-02)
DX: S09.90XA Unspecified injury of head, initial encounter (principal); S01.01XA Laceration without foreign body of scalp, initial encounter; W19.XXXA Unspecified fall, initial encounter; Z87.891 Personal history of nicotine dependence
CPT/HCPCS: 90715; 99283

== ENCOUNTER 2016-11-09 08:44 | Emergency (ER) | payer SELFPAY ==
[2016-11-09 08:54] VITALS: BP 124/82
--- NOTE | 2016-11-09 09:11 | ER Document Report ---
HPI - HPI Patient complains to provider of: staple removal Onset: Last week Onset/Duration: Sudden Quality of pain: No pain Severity: None Pain Level: 0 Associated Symptoms: None Exacerbated by: Denies Relieved by: Denies Similar symptoms previously: Yes Recently seen / treated by doctor: Yes - ROS ROS below otherwise negative: Yes Systems Reviewed and Negative: Yes All other systems reviewed and negative - NEURO Neurology: DENIES: Headache - CARDIOVASCULAR Cardiovascular: DENIES: Chest pain - RESPIRATORY Respiratory: DENIES: Trouble Breathing - DERM Skin Color: Normal Skin Problems: Laceration - staple to scalp Past Medical History - General Information source: Patient - Social History Smoking Status: Current Every Day Smoker Cigarette use (# per day): Yes Frequency of alcohol use: Occasional Drug Abuse: None Lives with: Family Family History: Reviewed & Not Pertinent Patient has suicidal ideation: No Patient has homicidal ideation: No Neurological Medical History: Reports: Hx Seizures - with ETOH withdrawal Past Surgical History: Reports: Hx Tonsillectomy - Immunizations Hx Diphtheria, Pertussis, Tetanus Vaccination: Yes Vertical Provider Document - CONSTITUTIONAL Agree With Documented VS: Yes Exam Limitations: No Limitations General Appearance: WD/WN - INFECTION CONTROL TRAVEL OUTSIDE OF THE [place] IN LAST 30 DAYS: No - HEENT HEENT: Normocephalic Notes: Single staple to left side of head, no s/s of infection. - RESPIRATORY Respiratory: Breath Sounds Normal, No Respiratory Distress O2 Sat by Pulse Oximetry: 97 - CARDIOVASCULAR Cardiovascular: Regular Rate, Regular Rhythm - GI/ABDOMEN Gastrointestinal: Abdomen Soft - MUSCULOSKELETAL/EXTREMETIES Musculoskeletal/Extremeties: MAEW - NEURO Level of Consciousness: Awake, Alert, Appropriate - DERM Integumentary: Warm, Dry Course - Re-evaluation Re-evalutation: 11/09/16 09:16 staple removed without difficulty. Pt tolerated procedure well. - Vital Signs Vital signs: Temp Pulse Resp BP Pulse Ox 97.9 F 88 16 124/82 97 11/09/16 08:51 11/09/16 08:51 11/09/16 08:51 11/09/16 08:51 11/09/16 08:51 Discharge - Discharge Clinical Impression: Removal of staple Condition: Good Disposition: HOME, SELF-CARE Additional Instructions: keep clean and dry follow up with PCP or return if any problems
== END 2016-11-09 09:16 | disposition home or self-care (01) ==
LOC: ER 08:44
DX: Z48.02 Encounter for removal of sutures (principal)

== ENCOUNTER 2018-02-21 21:47 | Emergency (ER) | payer SELFPAY ==
--- NOTE | 2018-02-21 22:24 | ER Document Report ---
ED General - General Chief Complaint: ETOH Abuse Stated Complaint: ETOH Time Seen by Provider: 02/21/18 22:05 Cannot obtain history due to: Intoxicated Notes: Patient is a 32-year-old male who presents by EMS after apparently being passed out in the front of an apartment complex. He was initially difficult to wake for EMS but did eventually wake up spontaneously. He was transported to the emergency department at that time. Patient does admit to drinking heavily today. Denies any coingestions. Denies any trauma. Denies any additional complaints. History is limited secondary to the patient's degree of intoxication. TRAVEL OUTSIDE OF THE [place] IN LAST 30 DAYS: No - Related Data Allergies/Adverse Reactions: No Known Allergies Allergy (Verified 09/03/16 07:02) Past Medical History - General Information source: Patient Cannot obtain history due to: Intoxicated - Social History Smoking Status: Current Every Day Smoker Frequency of alcohol use: Heavy Lives with: Family Family History: Reviewed & Not Pertinent Neurological Medical History: Reports: Hx Seizures - with ETOH withdrawal Renal/ Medical History: Denies: Hx Peritoneal Dialysis Past Surgical History: Reports: Hx Tonsillectomy - Immunizations Hx Diphtheria, Pertussis, Tetanus Vaccination: Yes Review of Systems - Review of Systems -: Yes ROS unobtainable due to patient's medical condition Physical Exam - Vital signs Interpretation: Normal Notes: PHYSICAL EXAMINATION: GENERAL: Intoxicated but in no acute distress HEAD: Atraumatic, normocephalic. EYES: Pupils equal round and reactive to light, extraocular movements intact, sclera anicteric, conjunctiva are normal. ENT: nares patent, oropharynx clear without exudates. Moderate joint mucous membranes. NECK: Normal range of motion, supple without lymphadenopathy, no midline cervical spine tenderness. LUNGS: Breath sounds clear to auscultation bilaterally and equal. No wheezes rales or rhonchi. HEART: Regular rate and rhythm without murmurs ABDOMEN: Soft, nontender, normoactive bowel sounds. No guarding, no rebound. No masses appreciated. EXTREMITIES: Normal range of motion, no pitting or edema. No cyanosis. NEUROLOGICAL: No focal neurological deficits. Moves all extremities spontaneously and on command. PSYCH: Somewhat lethargic but wakes easily. Obviously intoxicated. SKIN: Warm, Dry, normal turgor, no rashes or lesions noted. Course - Re-evaluation Re-evalutation: 02/21/18 22:23 Patient presents with acute alcohol intoxication without any additional acute complaints. Admits to heavy alcohol use today. No evidence of trauma on exam. Patient was monitored in the emergency department until they were clinically sober. Able to ambulate and talking clear sentences prior to discharge. Tolerating oral intake without difficulty. The patient has been instructed to seek help for alcohol detoxification. Will discharge and return precautions and follow-up recommendations. Discharge - Discharge Clinical Impression: Alcohol abuse Alcohol intoxication Qualifiers: Complication of substance-induced condition: uncomplicated Qualified Code(s): F10.920 - Alcohol use, unspecified with intoxication, uncomplicated Condition: Good Disposition: HOME, SELF-CARE Additional Instructions: You were seen in the emergency department today for being drunk. Being seen in the emergency department after drinking alcohol is a serious indicator that you have a problem with alcohol. Please return to the emergency room immediately if you experience any concerning symptoms including high fevers, severe headache, chest pain, difficulty breathing, abdominal pain, slurred speech, numbness or weakness in your arms or legs, or any other symptom that concerns you.
--- NOTE | 2018-02-22 05:49 | ER Document Report ---
Doctor's Note Notes: 02/22/18 05:46 On reinvestigation this 32-year-old man with a history of alcohol intoxication now states that he is going to hang himself. He notes that he has no other choice at this time and he is depressed and wants to kill himself. He denies any medical problems takes no medicines. He denies any other ingestions at this time. He is never been treated for depression in the past. States that he does not have any desire to harm anyone else. States that he is hopeless. We will initiate investigation for mental health treatment. We will initiate investigation for medical clearance including standard labs as well as toxicology. 02/22/18 05:49 The patient does not demonstrate any obvious stigmata of more serious underlying toxic catering denies coingestion. Following clearance we will plan for psychiatric evaluation and appropriate disposition determination. Discharge - Discharge Clinical Impression: Alcohol abuse, Threatening suicide Alcohol intoxication Qualifiers: Complication of substance-induced condition: uncomplicated Qualified Code(s): F10.920 - Alcohol use, unspecified with intoxication, uncomplicated
[2018-02-22 06:08] LABS: ABSOLUTE BASOPHILS # (AUTO) 0.1 10^3/uL (0.0-0.2); ABSOLUTE EOSINOPHILS # (AUTO) 0.1 10^3/uL (0.0-0.6); ABSOLUTE LYMPHOCYTES (AUTO) 2.7 10^3/uL (0.5-4.7); ABSOLUTE MONOCYTES (AUTO) 0.7 10^3/uL (0.1-1.4); ABSOLUTE NEUT (AUTO) 4.2 10^3/uL (1.7-8.2); BASOPHILS % (AUTO) 1.2 % (0-2); EOSINOPHILS % (AUTO) 1.2 % (0-6); HEMATOCRIT 47.4 % (37.9-51.0); HEMOGLOBIN 16.6 g/dL (13.5-17.0); LYMPHOCYTES % (AUTO) 34.9 % (13-45); MEAN CORPUSCULAR HEMOGLOBIN 33.4 pg (27.0-33.4); MEAN CORPUSCULAR HGB CONC 34.9 g/dL (32.0-36.0); MEAN CORPUSCULAR VOLUME 96 fl (80-97); MONOCYTES % (AUTO) 8.6 % (3-13); RED BLOOD COUNT 4.96 10^6/uL (4.35-5.55); RED CELL DISTRIBUTION WIDTH 14.8 % (11.5-14.0); SEGMENTED NEUTROPHILS % (AUTO) 54.1 % (42-78); TOTAL CELLS COUNTED % (AUTO) 100 %; WHITE BLOOD COUNT 7.8 10^3/uL (4.0-10.5)
[2018-02-22 06:13] LABS: ALANINE AMINOTRANSFERASE 61 U/L (21-72); ALBUMIN 4.1 g/dL (3.5-5.0); ALCOHOL 267 mg/dL (NONE DETECTED); ALKALINE PHOSPHATASE 97 U/L (38-126); ANION GAP 14 (5-19); ASPARTATE AMINO TRANSFERASE 34 U/L (17-59); BILIRUBIN,DIRECT 0.3 mg/dL (0.0-0.4); BILIRUBIN,TOTAL 0.4 mg/dL (0.2-1.3); BLOOD UREA NITROGEN 9 mg/dL (7-20); CALCIUM 8.8 mg/dL (8.4-10.2); CARBON DIOXIDE 25 mmol/L (22-30); CHLORIDE 107 mmol/L (98-107); GLUCOSE 99 mg/dL (75-110); POTASSIUM 4.2 mmol/L (3.6-5.0); SODIUM 145.5 mmol/L (137-145); TOTAL PROTEIN 7.2 g/dL (6.3-8.2)
[2018-02-22 06:14] LABS: ACETAMINOPHEN < 10 ug/mL (10-30); SALICYLATE < 1.0 mg/dL (2.0-20.0)
[2018-02-22 06:24] LABS: APPEARANCE,URINE CLEAR; BILIRUBIN,URINE NEGATIVE (NEGATIVE); COLOR,URINE YELLOW; GLUCOSE, URINE NEGATIVE (NEGATIVE); KETONES,URINE NEGATIVE (NEGATIVE); LEUKOCYTE ESTERASE,URINE NEGATIVE (NEGATIVE); NITRITE,URINE NEGATIVE (NEGATIVE); PROTEIN,URINE NEGATIVE (NEGATIVE); URINE SPECIFIC GRAVITY 1.014; UROBILINOGEN,URINE NEGATIVE mg/dL (<2.0)
[2018-02-22 06:37] LABS: URINE AMPHETAMINES SCREEN NEGATIVE; URINE BARBITURATES SCREEN NEGATIVE; URINE BENZODIAZEPINES SCREEN NEGATIVE; URINE COCAINE SCREEN NEGATIVE; URINE MARIJUANA (THC) SCREEN NEGATIVE; URINE METHADONE SCREEN NEGATIVE; URINE PHENCYCLIDINE SCREEN NEGATIVE
[2018-02-22 06:53] LABS: PLATELET COUNT 346 10^3/uL (150-450)
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
--- NOTE | 2018-02-22 10:40 | EKG REPORT ---
SEVERITY:- NORMAL ECG - SINUS RHYTHM : Confirmed by: Phyllis Alfonso 22-Feb-2018 10:39:45
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
[2018-02-22] MEDS: VENLAFAXINE HCL 37.5 MG CAP.SR.24H PO SCH (18:21)
[2018-02-22] MEDS: BUSPIRONE HCL 10 MG TABLET PO SCH (18:21)
[2018-02-23] MEDS: BUSPIRONE HCL 10 MG TABLET PO SCH (09:36)
[2018-02-23] MEDS: VENLAFAXINE HCL 37.5 MG CAP.SR.24H PO SCH (09:36)
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
--- NOTE | 2018-02-23 15:13 | ER Document Report ---
Doctor's Note Notes: 02/23/18 15:13 Rounds: Chart reviewed and patient interviewed. Being seen for alcohol abuse and suicidal ideation. Vital signs normal. Labs normal except for ETOH 267. Patient appears to be stable for discharge or transfer. Kody Macdonald MD
[2018-02-23 16:20] VITALS: BP 122/72
== END 2018-02-23 15:45 ==
LOC: ER 21:47
DX: F10.920 Alcohol use, unspecified with intoxication, uncomplicated (principal); R45.851 Suicidal ideations; R55 Syncope and collapse; F17.200 Nicotine dependence, unspecified, uncomplicated
CPT/HCPCS: 93005; 99285; 36415; 80307 ×4; 85025; 80053; 81001; 93010; J3490 ×2

== ENCOUNTER 2018-04-09 19:01 | Emergency (ER) | payer SELFPAY ==
[2018-04-09] MEDS ORDERED: DOXYCYCLINE HYCLATE 100 MG TABLET PO ONE (22:22)
--- NOTE | 2018-04-09 22:25 | ER Document Report ---
ED General - General Chief Complaint: Abscess Stated Complaint: HEAD INJURY Time Seen by Provider: 04/09/18 21:50 Notes: Patient is a 32-year-old male who presents with complaint of small abscess to his face. He says he first noticed it when he was shaving and he cut what appeared to be infected hair follicle and had some pus come out. He has some small swelling there. He denies any other complaints. No fevers. No vomiting. No difficulty breathing or swallowing. TRAVEL OUTSIDE OF THE [place] IN LAST 30 DAYS: No - Related Data Allergies/Adverse Reactions: No Known Allergies Allergy (Verified 04/09/18 19:01) Past Medical History - Social History Smoking Status: Current Every Day Smoker Chew tobacco use (# tins/day): No Frequency of alcohol use: None Drug Abuse: None Family History: Reviewed & Not Pertinent Patient has suicidal ideation: No Patient has homicidal ideation: No Neurological Medical History: Reports: Hx Seizures - with ETOH withdrawal Renal/ Medical History: Denies: Hx Peritoneal Dialysis Psychiatric Medical History: Reports: Hx Depression Past Surgical History: Reports: Hx Tonsillectomy - Immunizations Hx Diphtheria, Pertussis, Tetanus Vaccination: Yes Review of Systems - Review of Systems Notes: My Normal Review Basic REVIEW OF SYSTEMS: CONSTITUTIONAL : Denies fever, chills, or sweats. Denies recent illness. EENT: Denies eye, ear, throat, or mouth pain or symptoms. Denies nasal or sinus congestion. RESPIRATORY: Denies cough, cold, or chest congestion. Denies shortness of breath, difficulty breathing, or wheezing. GASTROINTESTINAL: Denies abdominal pain. Denies nausea, vomiting, or diarrhea. SKIN: Possible small abscess on left side of face. NEUROLOGICAL: Denies headache. ALL OTHER SYSTEMS REVIEWED AND NEGATIVE. Physical Exam - Vital signs Vitals: Temp Pulse Resp BP Pulse Ox 98.4 F 90 16 120/66 100 04/09/18 19:13 04/09/18 19:13 04/09/18 19:13 04/09/18 19:13 04/09/18 19:13 - Notes Notes: General Appearance: Well nourished, alert, cooperative, no acute distress, no obvious discomfort. Well-appearing. Vitals: reviewed, See vital signs table. Head: Patient has very small area of induration along the ware line on the left side of his face. No significant swelling. No fluctuation. No signs of residual abscess. Does have some small amount of localized erythema consistent with some residual cellulitis where the abscess was. Eyes: PERRL, EOMI, Conjuctiva clear Mouth: No decreasd moisture Neck: Supple, no neck tenderness, No neck swelling Neuro: speech clear, oriented x 3, normal affect, responds appropriately to questions. Course - Re-evaluation Re-evalutation: 04/10/18 07:36 Patient has what appears to be an infected hair follicle that turned to the abscess which he then cut with his razor and then drained. He now just has some residual induration and localized cellulitis for which we will place him on antibiotic. I encouraged him return to ER if he has increasing swelling or spreading redness of the face, fevers, or if he feels unwell. Patient agrees with plan and will be discharged home. Dictation of this chart was performed using voice recognition software; therefore, there may be some unintended grammatical errors. - Vital Signs Vital signs: Temp Pulse Resp BP Pulse Ox 98.5 F 64 16 110/74 100 04/09/18 22:41 04/09/18 22:41 04/09/18 19:13 04/09/18 22:41 04/09/18 19:13 Discharge - Discharge Clinical Impression: Hair follicle infection Condition: Good Disposition: HOME, SELF-CARE Additional Instructions: You have what appears to be a small hair follicle that got infected and then developed a small abscess. It appears that the abscess has been drained and there is no need to incise it any further today. We will place you on an ant ibiotic to help fight off any residual infection. Please continue to clean your scalp with shampoo and water and then pat dry. Please return to ER immediately if you develop spreading redness, increasing swelling, or any fevers. The antibiotic we are placing you on is called doxycycline. Doxycycline will make your skin more sensitive to the sun so please make sure you keep your skin covered or wear sunscreen whenever out in the sun. Prescriptions: RX: Doxycycline Hyclate 100 mg PO BID #14 capsule
[2018-04-09 22:43] VITALS: BP 110/74
== END 2018-04-09 23:07 | disposition home or self-care (01) ==
LOC: ER 19:01
DX: L02.01 Cutaneous abscess of face (principal); F17.200 Nicotine dependence, unspecified, uncomplicated
CPT/HCPCS: 99283

== ENCOUNTER 2018-06-30 16:47 | Emergency (ER) | payer SELFPAY ==
[2018-06-30 16:59] VITALS: BP 129/70
--- NOTE | 2018-06-30 17:25 | ER Document Report ---
ED General - General Chief Complaint: Numbness Stated Complaint: NUMBNESS Time Seen by Provider: 06/30/18 17:24 Primary Care Provider: DELGADO RED MD [COMMUNITY BASED STAFF] - Follow up in 3-5 days (primary care. ) Notes: Patient is a 32-year-old male that presents to the emergency department for chief complaint of hyperventilation and palpitations. 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 At this time he has no specific complaints, but was concerned about the symptoms. He denies having any lightheadedness, dizziness chest pain, shortness of breath, and nausea, vomiting, abdominal pain, dysuria or hematuria at this time. Past Medical History: Denies chronic medical conditions Past Surgical History: Denies surgical history Social History: Admits to smoking cigarettes, and occasional alcohol use, denies illicit drug use. Family History: Reviewed and noncontributory for presenting illness Allergies: Reviewed, see documented allergy list. REVIEW OF SYSTEMS: Other than noted above, the 12 point review of systems was reviewed with the patient and were negative, all pertinent findings are included in the HPI. PHYSICAL EXAMINATION: Vital signs reviewed, nursing noted reviewed. GENERAL: Well-appearing, well-nourished and in no acute distress. HEAD: Atraumatic, normocephalic. EYES: Eyes appear normal, sclera anicteric, conjunctiva are normal. ENT: Moist mucous membranes. NECK: Normal range of motion, supple without lymphadenopathy LUNGS: Breath sounds clear to auscultation bilaterally and equal. No wheezes rales or rhonchi. HEART: Regular rate and rhythm without murmurs EXTREMITIES: Nontender, good range of motion, no pitting or edema. NEUROLOGICAL: No focal neurological deficits. Moves all extremities spontaneous ly Motor and sensory grossly intact on exam. PSYCH: Normal mood, normal affect. SKIN: Warm, Dry, normal turgor, no rashes or lesions noted on exposed skin TRAVEL OUTSIDE OF THE [place] IN LAST 30 DAYS: No - Related Data Allergies/Adverse Reactions: No Known Allergies Allergy (Verified 04/09/18 19:01) Past Medical History - Social History Smoking Status: Current Every Day Smoker Family History: Reviewed & Not Pertinent Patient has suicidal ideation: No Patient has homicidal ideation: No Neurological Medical History: Reports: Hx Seizures - with ETOH withdrawal Renal/ Medical History: Denies: Hx Peritoneal Dialysis Psychiatric Medical History: Reports: Hx Depression Past Surgical History: Reports: Hx Tonsillectomy - Immunizations Hx Diphtheria, Pertussis, Tetanus Vaccination: Yes Physical Exam - Vital signs Vitals: Temp Pulse Resp BP Pulse Ox 98 F 81 18 129/70 H 99 06/30/18 16:58 06/30/18 16:58 06/30/18 16:58 06/30/18 16:58 06/30/18 16:58 Course - Re-evaluation Re-evalutation: Patient seen and examined, vital signs reviewed, patient appears well on exam, and was not having any complaints, EKG was obtained and as noted below was normal, no concerning findings, no dysrhythmias, or signs of ischemia. Patient's presentation and clinical history was most consistent with a hyperventilation episode and acute stress reaction, otherwise a panic attack. He had a preceding event that led to this, and it was advised that he could take Benadryl at home, and if he had return of his symptoms or concerns he could return to the emergency department otherwise he was advised deep breathing, and relaxing at home this evening. Patient was agreeable to this plan of care and was discharged home. I do not feel any further workup is needed at this time as the patient is otherwise healthy, appears well, and his clinical history did fit with hyperventilation episode. *Note is created using voice recognition software and may contain spelling, syntax or grammatical errors. - Vital Signs Vital signs: Temp Pulse Resp BP Pulse Ox 98 F 81 18 129/70 H 99 06/30/18 16:58 06/30/18 16:58 06/30/18 16:58 06/30/18 16:58 06/30/18 16:58 - EKG Interpretation by Me Additional EKG results interpreted by me: EKG demonstrates sinus rhythm with a ventricular rate of 77 bpm, normal axis, normal intervals, no evidence of acute ischemia, compared with prior EKG from 02/22/2018, without significant change. Discharge - Discharge Clinical Impression: Stress reaction Condition: Stable Disposition: HOME, SELF-CARE Instructions: Panic Attack ([facility]) Additional Instructions: Please follow-up with a primary care physician, try to take slow deep relaxing breaths over the next several days, and may benefit you did take some Benadryl to help with sleep this evening. You can take 2 tablets of [id number] Benadryl. Referrals: DELGADO RED MD [COMMUNITY BASED STAFF] - Follow up in 3-5 days (primary care. )
--- NOTE | 2018-06-30 21:51 | EKG REPORT ---
SEVERITY:- NORMAL ECG - SINUS RHYTHM : Confirmed by: Porsha Dickens MD 30-Jun-2018 21:51:15
== END 2018-06-30 18:33 | disposition home or self-care (01) ==
LOC: ER 16:47
DX: F43.9 Reaction to severe stress, unspecified (principal); R20.0 Anesthesia of skin; R06.4 Hyperventilation; R00.2 Palpitations; F17.210 Nicotine dependence, cigarettes, uncomplicated
CPT/HCPCS: 93005; 93010; 99283

== ENCOUNTER 2018-07-29 19:54 | Emergency (ER) | payer SELFPAY ==
[2018-07-29 20:17] VITALS: BP 139/77
[2018-07-29] MEDS ORDERED: LIDOCAINE 1% INJ-PF (10 MG/ML) 30 ML SDV INJ ONE (22:52)
--- NOTE | 2018-07-29 22:56 | ER Document Report ---
ED General - General Chief Complaint: Toe Injury Stated Complaint: TOE INJURY Time Seen by Provider: 07/29/18 22:51 Mode of Arrival: Ambulatory Information source: Patient TRAVEL OUTSIDE OF THE [place] IN LAST 30 DAYS: No - HPI Patient complains to provider of: Laceration to left great toe Onset: Just prior to arrival Onset/Duration: Sudden Severity: Mild Pain Level: 1 Associated symptoms: None Exacerbated by: Movement, Walking Relieved by: Denies Similar symptoms previously: No Recently seen / treated by doctor: No Notes: 32-year-old male coming in today with a flap laceration to left great toe. Broke a glass and then stepped on a piece of the glass that was on the floor. Possible foreign body. Last tetanus unknown - Related Data Allergies/Adverse Reactions: No Known Allergies Allergy (Verified 07/29/18 19:56) Past Medical History - General Information source: Patient - Social History Smoking Status: Smoker,Current Status Unk Family History: Reviewed & Not Pertinent Neurological Medical History: Reports: Hx Seizures - with ETOH withdrawal Renal/ Medical History: Denies: Hx Peritoneal Dialysis Psychiatric Medical History: Reports: Hx Depression Past Surgical History: Reports: Hx Tonsillectomy - Immunizations Hx Diphtheria, Pertussis, Tetanus Vaccination: Yes Review of Systems - Review of Systems Notes: Constitutional: No fevers. No chills. EENT: No eye redness. No eye pain. No ear pain. No sore throat. Cardiovascular: No chest pain. No palpitations. Respiratory: No cough. No shortness of breath. No respiratory distress. Gastrointestinal: No abdominal pain. No nausea, vomiting, or diarrhea. Genitourinary: Atraumatic. No lesions. No pain. No discharge. Musculoskeletal: Positive laceration left great toe Skin: No rash or lesions. Lymphatic: No swollen lymph nodes. Neurologic: No headache. No syncope. Psychiatric: No suicidal or homicidal ideation. Physical Exam - Vital signs Vitals: Temp Pulse Resp BP Pulse Ox 98.3 F 115 H 16 139/77 H 96 07/29/18 20:09 07/29/18 20:09 07/29/18 20:09 07/29/18 20:09 07/29/18 20:09 - Notes Notes: General: Well-developed, well-nourished. In no acute distress. Non-toxic appearing. Cardiac: Well-perfused. Regular rate and rhythm. No murmurs, rubs, or gallops. Pulmonary: No respiratory distress. No cyanosis. Bilateral lung fiels are clear to auscultation. Abdominal: Non-distended. Non-rigid. Bowels sounds are present in all four quadrants. No guarding or rebound. HEENT: Head is atraumatic. Conjunctivae not reddened. No tearing. PERRL. EOMI. Orbits atraumatic. No periorbital swelling or erythema. Oropharynx is without erythema, swelling, or exudates. Neck: Supple. No adenopathy. No meningismus. Dermatologic: Warm with good turgor. No rash. Atraumatic. Chest: Atraumatic. No chest wall tenderness to palpation. Musculoskeletal: 3 cm wedge laceration to the plantar surface of the left great toe. No active bleeding. Visualized superficial glass foreign bodies. Genitourinary: Examination deferred Neurologic: No gross neurologic deficits. Psychiatric: Normal mood. Course - Re-evaluation Re-evalutation: 07/29/18 22:56 We get an x-ray of the left foot make sure there is no deeper foreign bodies to the wound. Patient will need some suturing. 07/30/18 00:46 X-ray negative for foreign body. Will numb up, clean up, and suture the toe - Vital Signs Vital signs: Temp Pulse Resp BP Pulse Ox 98.3 F 115 H 16 139/77 H 96 07/29/18 20:09 07/29/18 20:09 07/29/18 20:09 07/29/18 20:09 07/29/18 20:09 Procedures - Laceration/Wound Repair Left great toe Time completed: 00:47 Wound length (cm): 4 Wound's Depth, Shape: Flap Laceration pre-procedure: Sterile PPE donned, Sterile drapes applied, Shur-Clens applied Anesthetic type: 1% Lidocaine Volume Anesthetic (mLs): 10 Wound explored: Contaminated - dirty Wound Debrided: Minimal Wound Repaired With: Sutures Suture Size/Type: 3:0, Prolene Number of Sutures: 7 Layer Closure?: No Post-procedure wound care: Sterile dressing applied Post-procedure NV exam normal: Yes Complications: No Notes: 07/30/18 00:48 Tolerated well with no complications Discharge - Discharge Clinical Impression: Foot laceration Qualifiers: Encounter type: initial encounter Laterality: left Qualified Code(s): S91.312A - Laceration without foreign body, left foot, initial encounter Condition: Good Disposition: HOME, SELF-CARE Instructions: Antibiotic Ointment Protection ([facility]), Laceration Care ([facility]), Prophylactic Antibiotic ([facility]), Soap Cleansing ([facility]) Additional Instructions: Return to the ER in 10 to 14 days to have the sutures removed. Take antibiotics as prescribed to prevent infection. Prescriptions: Cephalexin Monohydrate [Keflex 500 mg Capsule] 500 mg PO Q6H 7 Days #28 capsule Referrals: [facility] [Provider Group] - Follow up as needed
--- NOTE | 2018-07-29 23:22 | RADIOLOGY REPORT (SQ) ---
EXAM DESCRIPTION: XR LEFT FOOT 3 OR MORE VIEWS COMPLETED DATE/TME: 07/29/2018 22:52 CLINICAL HISTORY: 32 years, Male, lac great toe r/o fb COMPARISON: None. NUMBER OF VIEWS: TECHNIQUE: LIMITATIONS: None. FINDINGS: There is laceration involving the ventral aspect of the great toe. There is no evidence of radiopaque foreign body within the soft tissues, in the region of the laceration. No fracture. Mineralization of bone appears normal. IMPRESSION: No evidence of radiopaque foreign body. copyright 2010 [employer]- All Rights Reserved
[2018-07-30] MEDS ORDERED: DIPH/PERTUSS(ACELL)/TETANUS VAC/PF 0.5 ML SYR (>=10YO) IM ONE (00:50)
== END 2018-07-30 01:15 | disposition home or self-care (01) ==
LOC: ER 19:54
DX: S91.312A Laceration without foreign body, left foot, initial encounter (principal); W25.XXXA Contact with sharp glass, initial encounter; Z23 Encounter for immunization
CPT/HCPCS: 90471; 99283; 73630; 90715; 12002; J3490

== ENCOUNTER 2019-04-14 17:58 | Emergency (ER) | payer SELFPAY ==
[2019-04-14 18:48] LABS: ABSOLUTE MONOCYTES (AUTO) 0.5 10^3/uL (0.1-1.4); ABSOLUTE NEUT (AUTO) 5.9 10^3/uL (1.7-8.2); BASOPHILS % (AUTO) 0.3 % (0-2); EOSINOPHILS % (AUTO) 0.6 % (0-6); HEMATOCRIT 45.8 % (37.9-51.0); HEMOGLOBIN 15.8 g/dL (13.5-17.0); LYMPHOCYTES % (AUTO) 12.7 % (13-45); MEAN CORPUSCULAR HEMOGLOBIN 34.1 pg (27.0-33.4); MEAN CORPUSCULAR HGB CONC 34.5 g/dL (32.0-36.0); MEAN CORPUSCULAR VOLUME 99 fl (80-97); MONOCYTES % (AUTO) 7.2 % (3-13); RED BLOOD COUNT 4.62 10^6/uL (4.35-5.55); RED CELL DISTRIBUTION WIDTH 14.1 % (11.5-14.0); SEGMENTED NEUTROPHILS % (AUTO) 79.2 % (42-78); TOTAL CELLS COUNTED % (AUTO) 100 %; WHITE BLOOD COUNT 7.5 10^3/uL (4.0-10.5)
[2019-04-14 19:02] LABS: ALBUMIN 4.3 g/dL (3.5-5.0); ALKALINE PHOSPHATASE 105 U/L (38-126); ANION GAP 19 (5-19); ASPARTATE AMINO TRANSFERASE 112 U/L (17-59); BILIRUBIN,DIRECT 0.3 mg/dL (0.0-0.4); BILIRUBIN,TOTAL 0.8 mg/dL (0.2-1.3); BLOOD UREA NITROGEN 8 mg/dL (7-20); CALCIUM 9.4 mg/dL (8.4-10.2); CARBON DIOXIDE 18 mmol/L (22-30); CHLORIDE 98 mmol/L (98-107); GLUCOSE 163 mg/dL (75-110); POTASSIUM 3.7 mmol/L (3.6-5.0); TOTAL PROTEIN 7.4 g/dL (6.3-8.2)
[2019-04-14 19:12] LABS: ALCOHOL < 10 mg/dL (NONE DETECTED)
[2019-04-14 19:37] LABS: PLATELET COUNT 81 10^3/uL (150-450)
[2019-04-14] MEDS ORDERED: NORMAL SALINE 1000 ML 1,000 ML IV ONE (20:01)
[2019-04-14] MEDS ORDERED: LEVETIRACETAM INJ/PF 500 MG/5 ML SDV IV ONE (21:07)
--- NOTE | 2019-04-14 21:12 | ER Document Report ---
ED Medical Screen (RME) - General Chief Complaint: Seizure Stated Complaint: SEIZURE Time Seen by Provider: 04/14/19 19:14 TRAVEL OUTSIDE OF THE [place] IN LAST 30 DAYS: No - HPI Onset/Duration: Sudden Context: 33 year old male arrives with bilateral thigh pain after a generalized seizure a short time ago. No fever or recent illness. Unsure if he hit his head. He complains of muscular pain in his legs. No recent illness but very tired he tells me. Perhaps a handful of seizures in the past. Severity: Mild Pain Level: 2 Associated Symptoms: None Exacerbated by: Denies - Related Data Allergies/Adverse Reactions: No Known Allergies Allergy (Verified 04/14/19 18:07) Past Medical History - Social History Chew tobacco use (# tins/day): No Frequency of alcohol use: Occasional Drug Abuse: None Neurological Medical History: Reports: Hx Seizures - with ETOH withdrawal Renal/ Medical History: Denies: Hx Peritoneal Dialysis Psychiatric Medical History: Reports: Hx Depression Past Surgical History: Reports: Hx Tonsillectomy - Immunizations Hx Diphtheria, Pertussis, Tetanus Vaccination: Yes Review of Systems - Review of Systems Constitutional: No symptoms reported EENT: No symptoms reported Cardiovascular: No symptoms reported Respiratory: No symptoms reported Gastrointestinal: No symptoms reported Genitourinary: No symptoms reported Male Genitourinary: No symptoms reported Musculoskeletal: No symptoms reported Skin: No symptoms reported Hematologic/Lymphatic: No symptoms reported Neurological/Psychological: No symptoms reported Physical Exam - Vital signs Vitals: Resp Pulse Ox 19 97 04/14/19 18:07 04/14/19 18:07 Interpretation: Normal - General General appearance: Appears well, Alert - HEENT Head: Normocephalic, Atraumatic Eyes: Normal Pupils: PERRL - Respiratory Respiratory status: No respiratory distress Chest status: Nontender Breath sounds: Normal Chest palpation: Normal - Cardiovascular Rhythm: Regular Heart sounds: Normal auscultation Murmur: No - Abdominal Inspection: Normal Distension: No distension Bowel sounds: Normal Tenderness: Nontender Organomegaly: No organomegaly - Back Back: Normal, Nontender - Extremities General upper extremity: Normal inspection, Nontender, Normal color, Normal ROM, Normal temperature General lower extremity: Normal inspection, Nontender, Normal color, Normal ROM, Normal temperature, Normal weight bearing. No: Erika's sign - Neurological Neuro grossly intact: Yes Cognition: Normal Orientation: AAOx4 Hudson Coma Scale Eye Opening: Spontaneous [place] Coma Scale Verbal: Oriented [place] Coma Scale Motor: Obeys Commands Hudson Coma Scale Total: 15 Speech: Normal Motor strength normal: LUE, RUE, LLE, RLE Sensory: Normal - Psychological Associated symptoms: Normal affect, Normal mood - Skin Skin Temperature: Warm Skin Moisture: Dry Skin Color: Normal Course - Re-evaluation Re-evalutation: 04/14/19 22:16 MDM 33 year old male with complaints of seizure and h/o previous seizure time perhaps 5. Struck his head he thinks and lost consciousness. Abrasion to left side of tongue. With the head injury and thrombocytopenia I felt a Ct of the h ead was necessary to rule out any intercranial bleeding. No suturable laceration. Discussed followup and he expressed understanding. - Vital Signs Vital signs: Temp Pulse Resp BP Pulse Ox 98.3 F 19 111/88 H 99 04/14/19 21:00 04/14/19 22:01 04/14/19 22:01 04/14/19 22:01 - Laboratory Result Diagrams: 04/14/19 16:37 04/14/19 18:15 Laboratory results interpreted by me: 04/14/19 04/14/19 04/14/19 16:37 18:15 18:26 MCV 99 H MCH 34.1 H RDW 14.1 H Plt Count 81 L Lymph % (Auto) 12.7 L Seg Neutrophils % 79.2 H Sodium 134.5 L Carbon Dioxide 18 L Glucose 163 H POC Glucose 163 H AST 112 H Creatine Kinase Urine Protein Urine Ketones Urine Urobilinogen 04/14/19 04/14/19 18:33 21:02 MCV MCH RDW Plt Count Lymph % (Auto) Seg Neutrophils % Sodium Carbon Dioxide Glucose POC Glucose AST Creatine Kinase 282 H Urine Protein 100 H Urine Ketones 20 H Urine Urobilinogen 2.0 H - Diagnostic Test Radiology reviewed: Reports reviewed Doctor's Discharge - Discharge Clinical Impression: Seizure Condition: Good Disposition: HOME, SELF-CARE Instructions: Family Physicians / Practices, Seizure, Known Epileptic ([facility]) Additional Instructions: See your doctor or one of the referral doctors in follow up. Rest. Please return here for any problems or any concerns. Your platelet count was a bit low and should be followed up routinely. Prescriptions: Levetiracetam [Keppra] 500 mg PO BID #20 tablet Forms: Return to Work
[2019-04-14 21:34] LABS: APPEARANCE,URINE CLOUDY; BILIRUBIN,URINE NEGATIVE (NEGATIVE); COLOR,URINE AMBER; GLUCOSE, URINE NEGATIVE (NEGATIVE); KETONES,URINE 20 mg/dL (NEGATIVE); LEUKOCYTE ESTERASE,URINE NEGATIVE (NEGATIVE); NITRITE,URINE NEGATIVE (NEGATIVE); PROTEIN,URINE 100 mg/dL (NEGATIVE); URINE SPECIFIC GRAVITY 1.021
[2019-04-14 21:40] LABS: URINE BARBITURATES SCREEN NEGATIVE; URINE BENZODIAZEPINES SCREEN NEGATIVE; URINE COCAINE SCREEN NEGATIVE; URINE MARIJUANA (THC) SCREEN NEGATIVE; URINE METHADONE SCREEN NEGATIVE; URINE PHENCYCLIDINE SCREEN NEGATIVE
[2019-04-14 21:43] LABS: URINE AMPHETAMINES SCREEN NEGATIVE
--- NOTE | 2019-04-14 23:45 | RADIOLOGY REPORT (SQ) ---
EXAM DESCRIPTION: CT HEAD WITHOUT IV CONTRAST COMPLETED DATE/TME: 04/14/2019 21:11 CLINICAL HISTORY: fall/ head injury COMPARISON: 08/22/2016 TECHNIQUE: Axial CT of the head obtained from the skull apex to the skull base without contrast. FINDINGS: No acute intracranial hemorrhage identified. No mass, mass effect, shift of the midline, abnormal extra-axial fluid collection or CT evidence of acute ischemic change identified. The ventricular system is unremarkable. No acute abnormalities of the supratentorial white matter, basal ganglia, cerebellum, or brainstem. The visualized paranasal sinuses and the mastoids are clear. No skull fracture identified. Visualized orbits and globes are unremarkable. IMPRESSION: 1. No acute intracranial abnormality identified. This exam was performed according to our departmental dose-optimization program, which includes automated exposure control, adjustment of the mA and/or kV according to patient size and/or use of iterative reconstruction technique.
[2019-04-15 00:25] VITALS: BP 116/88
--- NOTE | 2019-04-15 09:33 | EKG REPORT ---
SEVERITY:- OTHERWISE NORMAL ECG - SINUS TACHYCARDIA : Confirmed by: Phyllis Alfonso 15-Apr-2019 09:32:01
== END 2019-04-15 00:18 | disposition home or self-care (01) ==
LOC: ER 17:58
DX: R56.9 Unspecified convulsions (principal); M79.652 Pain in left thigh; M79.651 Pain in right thigh; M79.10 Myalgia, unspecified site
CPT/HCPCS: 93005; 99284; 96361; 96365; 36415; 82962; 80307 ×2; 82550; 83735; 85025; 80053; 81001; 70450; 93010; J7030; J1953

== ENCOUNTER 2019-07-07 10:09 | Emergency (ER) | payer SELFPAY ==
[2019-07-07] MEDS ORDERED: NORMAL SALINE 1000 ML 1,000 ML IV ONE (10:24)
--- NOTE | 2019-07-07 10:36 | ER Document Report ---
ED General - General Stated Complaint: SEIZURES Time Seen by Provider: 07/07/19 10:12 Mode of Arrival: Medic Information source: Patient, Emergency Med Personnel TRAVEL OUTSIDE OF THE [place] IN LAST 30 DAYS: No - HPI Onset: Just prior to arrival Onset/Duration: Sudden Quality of pain: Achy Severity: Mild Pain Level: 1 Context: Patient is a 33-year-old male presenting to the emergency department via EMS chief complaint of syncopal episode versus seizure. Patient states he has not been taking his Keppra as prescribed. Patient does report positive alcohol abuse. Patient states that he was walking to work He knows somebody was helping him up off of the ground. Patient does have a cough but states that he has been coughing like this for some time patient does endorse tobacco abuse. At time of presentation patient is alert and oriented and does not appear to be postictal Associated symptoms: Nonproductive cough, Headache Exacerbated by: Denies Relieved by: Denies Similar symptoms previously: Yes Recently seen / treated by doctor: No - Related Data Allergies/Adverse Reactions: No Known Allergies Allergy (Verified 04/14/19 18:07) Past Medical History - General Information source: Patient, Emergency Med Personnel - Social History Smoking Status: Current Every Day Smoker Cigarette use (# per day): Yes Chew tobacco use (# tins/day): No Smoking Education Provided: Yes Frequency of alcohol use: Heavy Drug Abuse: None Lives with: Family Family History: Reviewed & Not Pertinent Patient has suicidal ideation: No Patient has homicidal ideation: No Neurological Medical History: Reports: Hx Seizures - with ETOH withdrawal Renal/ Medical History: Denies: Hx Peritoneal Dialysis Psychiatric Medical History: Reports: Hx Depression Past Surgical History: Reports: Hx Tonsillectomy - Immunizations Hx Diphtheria, Pertussis, Tetanus Vaccination: Yes Review of Systems - Review of Systems Constitutional: See HPI EENT: No symptoms reported Cardiovascular: No symptoms reported Respiratory: See HPI Gastrointestinal: No symptoms reported Genitourinary: No symptoms reported Male Genitourinary: No symptoms reported Musculoskeletal: No symptoms reported Skin: No symptoms reported Hematologic/Lymphatic: No symptoms reported Neurological/Psychological: See HPI -: Yes All other systems reviewed and negative Physical Exam - Vital signs Vitals: Temp Pulse Resp BP Pulse Ox 98.6 F 106 H 22 H 158/96 H 99 07/07/19 10:31 07/07/19 10:31 07/07/19 10:31 07/07/19 10:31 07/07/19 10:31 - Notes Notes: PHYSICAL EXAMINATION: GENERAL: Well-appearing, well-nourished and in no acute distress. HEAD: Atraumatic, normocephalic. EYES: Pupils equal round and reactive to light, extraocular movements intact, sclera anicteric, conjunctiva are normal. ENT: nares patent, oropharynx clear without exudates. Moist mucous membranes. NECK: Normal range of motion, supple without lymphadenopathy, no appreciable JVD LUNGS: Lungs clear to auscultation bilaterally and equal. No wheezes rales or rhonchi. HEART: Regular rate and rhythm without murmurs ABDOMEN: Soft, nontender, normal bowel sounds. No guarding, no rebound. No masses appreciated. EXTREMITIES: Active full range of motion, no pitting or edema. No cyanosis. 2+ pulses x4 NEUROLOGICAL: Patient does endorse headache otherwise patient is alert and oriented x3 Aurora Coma Scale of 15 patient does have a mild slur to his speech which I believe may be secondary to alcohol intoxication. 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 SKIN: Warm, Dry, and intact. Normal turgor, no rashes or lesions noted. Course - Re-evaluation Re-evalutation: 07/07/19 11:31 Patient has been maintained on hall monitor while in emergency department. Patient has remained stable and has actually ambulated to the bathroom without difficulty. CT of brain and C-spine read by radiologist is negative. Waiting on portable chest x-ray and remainder of blood work. EKG is interpreted by me demonstrates sinus rhythm rate of 68 bpm there is no ST elevation no axis deviation no ectopy and no old EKG available at this time for comparison. 07/07/19 13:04 On reevaluation at this time the patient is alert attentive cooperative with exam he answers questions appropriately we did discuss his laboratory findings of an alcohol level of 363. The Keppra level test is a send out and that will take too long until we have results. Patient is agreeable with discharge home. Patient's mother is being contacted at this time to come and provide a ride for the patient home. Patient will receive 1000 mg of Keppra p.o. in the department patient is advised to start taking his medication as prescribed. Patient is further recommended to follow- up with his family physician in regards to his Keppra use and also possible counseling for alcohol abuse. Patient is stable at time of discharge. - Vital Signs Vital signs: Temp Pulse Resp BP Pulse Ox 98.6 F 106 H 12 103/63 95 07/07/19 10:31 07/07/19 10:31 07/07/19 12:31 07/07/19 12:31 07/07/19 12:31 - Laboratory Result Diagrams: 07/07/19 10:27 07/07/19 10:27 Laboratory results interpreted by me: 07/07/19 07/07/19 07/07/19 10:27 10:27 10:56 MCV 100 H MCH 35.1 H RDW 14.9 H Sodium 145.4 H Chloride 111 H Magnesium 2.4 H AST 62 H Total Protein 8.4 H Urine Blood SMALL H Serum Alcohol 383 H* - Diagnostic Test Radiology reviewed: Reports reviewed - EKG Interpretation by Me EKG shows normal: Sinus rhythm Rate: Normal Rhythm: NSR When compared to previous EKG there are: No significant change Discharge - Discharge Clinical Impression: Alcohol abuse, Seizure, Medical non-compliance Alcohol intoxication Qualifiers: Complication of substance-induced condition: with unspecified complication Qualified Code(s): F10.929 - Alcohol use, unspecified with intoxication, unspecified Syncopal episodes Qualifiers: Syncope type: unspecified Qualified Code(s): R55 - Syncope and collapse Condition: Stable Disposition: HOME, SELF-CARE Additional Instructions: Alcohol Withdrawal Your symptoms are caused by alcohol withdrawal. After a period of frequent drinking, the brain and body are changed by the alcohol. When you quit or reduce your drinking, the nervous system becomes unstable. Withdrawal symptoms can start a few hours after your last drink, but sometimes don't begin until a couple of days later. Symptoms can include shakiness, sweating, insomnia, nausea, vomiting, fearfulness, hallucinations, and seizures. In addition to the acute effects of alcohol withdrawal, we often have to deal with the medical effects of alcoholism. These problems often include dehydration, stomach irritation, intestinal bleeding, low blood sugar, liver disease, and pancreas inflammation. Treatment for alcohol withdrawal includes mild sedatives, vitamins, and fluids. You need to be with someone who can help if symptoms become severe. Many patients can withdraw at home. Admission to the hospital or a detox facility may be necessary if withdrawal symptoms are severe and uncontrollable. Abstaining from alcohol is the only effective long-term treatment. If you start drinking again, you will not be able to control yourself after the first drink. Treatment programs are available. In addition, many alcoholics benefit from Alcoholics Anonymous or other support groups available through your employee counselor or or sikh prop and effects designer. AL-ANON and ALA-TEEN are support groups for friends and family members of an alcoholic. Go to the emergency room if you develop persistent vomiting, severe abdominal pain, fever, shortness of breath, hallucinations, uncontrollable tremors, or seizures. Seizure You have had a seizure. Seizure disorders (epilepsy) of one sort or another affect about one out of 50 people. The seizure occurs because of abnormal electrical activity in the brain. Seizures may be due to drugs and alcohol, strokes, brain injury, or infection. In the most common form of epilepsy, no cause can be found. You will require further evaluation to determine the cause of your seizure, and to determine whether anti-seizure medication is required. This follow-up testing is important, so please call us if you encounter problems with scheduling of tests or appointments. YOU SHOULD NOT DRIVE until released to do so by your physician. The law requires that seizures be reported to the [place] driver's license bureau--a seizure while driving could be catastrophic. Call the doctor if seizures recur, or if you develop new symptoms such as fever, severe headache, stiff neck, confusion or increasing sleepiness, weakness or numbness, or visual problems. Forms: Smoking Cessation Education, Return to Work
[2019-07-07 10:51] LABS: HEMATOCRIT 46.9 % (37.9-51.0); HEMOGLOBIN 16.5 g/dL (13.5-17.0); MEAN CORPUSCULAR HEMOGLOBIN 35.1 pg (27.0-33.4); MEAN CORPUSCULAR HGB CONC 35.2 g/dL (32.0-36.0); MEAN CORPUSCULAR VOLUME 100 fl (80-97); PLATELET COUNT 260 10^3/uL (150-450); RED BLOOD COUNT 4.71 10^6/uL (4.35-5.55); RED CELL DISTRIBUTION WIDTH 14.9 % (11.5-14.0)
[2019-07-07 11:07] LABS: ALBUMIN 4.8 g/dL (3.5-5.0); ALKALINE PHOSPHATASE 99 U/L (38-126); ANION GAP 11 (5-19); ASPARTATE AMINO TRANSFERASE 62 U/L (17-59); BILIRUBIN,DIRECT 0.3 mg/dL (0.0-0.4); BILIRUBIN,TOTAL 0.3 mg/dL (0.2-1.3); BLOOD UREA NITROGEN 8 mg/dL (7-20); CALCIUM 9.1 mg/dL (8.4-10.2); CARBON DIOXIDE 23 mmol/L (22-30); CHLORIDE 111 mmol/L (98-107); GLUCOSE 95 mg/dL (75-110); POTASSIUM 4.4 mmol/L (3.6-5.0); TOTAL PROTEIN 8.4 g/dL (6.3-8.2)
[2019-07-07 11:14] LABS: APPEARANCE,URINE CLEAR; BILIRUBIN,URINE NEGATIVE (NEGATIVE); COLOR,URINE STRAW; GLUCOSE, URINE NEGATIVE (NEGATIVE); KETONES,URINE NEGATIVE (NEGATIVE); LEUKOCYTE ESTERASE,URINE NEGATIVE (NEGATIVE); NITRITE,URINE NEGATIVE (NEGATIVE); PROTEIN,URINE NEGATIVE (NEGATIVE); URINE SPECIFIC GRAVITY 1.003; UROBILINOGEN,URINE NEGATIVE mg/dL (<2.0)
--- NOTE | 2019-07-07 11:15 | RADIOLOGY REPORT (SQ) ---
EXAM DESCRIPTION: CT HEAD WITHOUT IMAGES COMPLETED DATE/TIME: 07/07/2019 11:05 am REASON FOR STUDY: trauma COMPARISON: 04/14/2019 TECHNIQUE: Axial images acquired through the brain without intravenous contrast. Images reviewed wi th bone, brain and subdural windows. Additional sagittal and coronal reconstructions were generated. Images stored on PACS. All CT scanners at this facility use dose modulation, iterative reconstruction, and/or weight based d osing when appropriate to reduce radiation dose to as low as reasonably achievable (ALARA). [facility]: Dose Right [facility]: CareDose [facility]: Dose Right [facility]: Teradose 4D [facility]: [employer]Love RADIATION DOSE: CT Rad equipment meets quality standard of care and radiation dose reduction techniq ues were employed. CTDIvol: 53.2 mGy. DLP: 991 mGy-cm. mGy. LIMITATIONS: None. FINDINGS: VENTRICLES: Normal size and contour. CEREBRUM: No masses. No hemorrhage. No midline shift. No evidence for acute infarction. Normal gra y/white matter differentiation. No areas of low density in the white matter. CEREBELLUM: No masses. No hemorrhage. No alteration of density. No evidence for acute infarction. EXTRAAXIAL SPACES: No fluid collections. No masses. ORBITS AND GLOBE: No intra- or extraconal masses. Normal contour of globe without masses. CALVARIUM: No fracture. PARANASAL SINUSES: No fluid or mucosal thickening. SOFT TISSUES: No mass or hematoma. OTHER: No other significant finding. IMPRESSION: NO ACUTE INTRACRANIAL IMAGING FINDINGS. EVIDENCE OF ACUTE STROKE: NO. COMMENT: Quality ID # [id number]: Final reports with documentation of one or more dose reduction techniques (e.g., Automated exposure control, adjustment of the mA and/or kV according to patient size, use of iterative reconstruction technique) TECHNICAL DOCUMENTATION: JOB ID: [id number] 2010 [employer]- All Rights Reserved Reading location - IP/workstation name: [email or web address]
--- NOTE | 2019-07-07 11:17 | RADIOLOGY REPORT (SQ) ---
EXAM DESCRIPTION: CT CERVICAL SPINE WITHOUT IMAGES COMPLETED DATE/TIME: 07/07/2019 11:05 am REASON FOR STUDY: trauma COMPARISON: None. TECHNIQUE: Axial images acquired through the cervical spine without intravenous contrast. Images re viewed with lung, soft tissue and bone windows. Reconstructed coronal and sagittal MPR images review ed. Images stored on PACS. All CT scanners at this facility use dose modulation, iterative reconstruction, and/or weight based d osing when appropriate to reduce radiation dose to as low as reasonably achievable (ALARA). [facility]: Dose Right [facility]: CareDose [facility]: Dose Right [facility]: Teradose 4D [facility]: [employer] RADIATION DOSE: CT Rad equipment meets quality standard of care and radiation dose reduction techniq ues were employed. CTDIvol: 20.9 mGy. DLP: 422 mGy-cm. mGy. LIMITATIONS: None. FINDINGS: ALIGNMENT: Anatomic. MINERALIZATION: Normal. VERTEBRAL BODIES: No fractures or dislocation. DISCS: No significant disc disease. FACETS, LATERAL MASSES, POSTERIOR ELEMENTS: No fractures. No dislocation. No acute findings. HARDWARE: None in the spine. VISUALIZED RIBS: No fractures. LUNG APICES AND SOFT TISSUES: No significant or acute findings. OTHER: Unchanged os ossific density adjacent to the left occipital condyles from prior, likely hetero topic ossification. IMPRESSION: No evidence of acute bony abnormality of the cervical spine. No significant degenerativ e change. TECHNICAL DOCUMENTATION: JOB ID: [id number] Quality ID # [id number]: Final reports with documentation of one or more dose reduction techniques (e.g., Au tomated exposure control, adjustment of the mA and/or kV according to patient size, use of iterative reconstruction technique) 2010 [employer]- All Rights Reserved Reading location - IP/workstation name: [email or web address]
[2019-07-07 11:23] LABS: ABSOLUTE LYMPHOCYTES# (MANUAL) 1.8 10^3/uL (0.5-4.7); ABSOLUTE MONOCYTES # (MANUAL) 0.4 10^3/uL (0.1-1.4); ANISOCYTOSIS SLIGHT; BASOPHILS % (MANUAL) 2 % (0-2); EOSINOPHILS % (MANUAL) 1 % (0-6); LYMPHOCYTES % (MANUAL) 45 % (13-45); MONOCYTES % (MANUAL) 10 % (3-13); PLATELET COMMENT ADEQUATE; SEGMENTED NEUTROPHILS % (MAN) 42 % (42-78); TOTAL CELLS COUNTED 100
[2019-07-07 11:25] LABS: HYPOCHROMASIA SLIGHT; TEAR DROP CELLS SLIGHT; TOXIC VACUOLATION PRESENT
[2019-07-07 11:29] LABS: URINE AMPHETAMINES SCREEN NEGATIVE; URINE BARBITURATES SCREEN NEGATIVE; URINE BENZODIAZEPINES SCREEN NEGATIVE; URINE COCAINE SCREEN NEGATIVE; URINE MARIJUANA (THC) SCREEN NEGATIVE; URINE METHADONE SCREEN NEGATIVE; URINE PHENCYCLIDINE SCREEN NEGATIVE
[2019-07-07 11:45] LABS: ALCOHOL 383 mg/dL (NONE DETECTED)
--- NOTE | 2019-07-07 13:04 | RADIOLOGY REPORT (SQ) ---
EXAM DESCRIPTION: CHEST SINGLE VIEW IMAGES COMPLETED DATE/TIME: 07/07/2019 12:48 pm REASON FOR STUDY: chronic cough COMPARISON: 08/23/2016 EXAM PARAMETERS: NUMBER OF VIEWS: One view. TECHNIQUE: Single frontal radiographic view of the chest acquired. RADIATION DOSE: NA LIMITATIONS: None. FINDINGS: LUNGS AND PLEURA: No opacities, masses or pneumothorax. No pleural effusion. MEDIASTINUM AND HILAR STRUCTURES: No masses. Contour normal. HEART AND VASCULAR STRUCTURES: Heart normal in size. Normal vasculature. BONES: No acute findings. HARDWARE: None in the chest. OTHER: No other significant finding. IMPRESSION: NO ACUTE RADIOGRAPHIC FINDING IN THE CHEST. TECHNICAL DOCUMENTATION: JOB ID: [id number] 2010 [employer]- All Rights Reserved Reading location - IP/workstation name: [email or web address]
[2019-07-07] MEDS ORDERED: LEVETIRACETAM 500 MG TABLET PO ONE (13:06)
[2019-07-07 13:25] VITALS: BP 126/55
--- NOTE | 2019-07-08 09:30 | EKG REPORT ---
SEVERITY:- NORMAL ECG - SINUS RHYTHM : Confirmed by: Phyllis Alfonso 08-Jul-2019 09:29:14
== END 2019-07-07 13:24 | disposition home or self-care (01) ==
LOC: ER 10:09
DX: R56.9 Unspecified convulsions (principal); Z91.14 Patient's other noncompliance with medication regimen; F10.929 Alcohol use, unspecified with intoxication, unspecified; R55 Syncope and collapse; F17.210 Nicotine dependence, cigarettes, uncomplicated; R05 Cough; R51 Headache
CPT/HCPCS: 93005; 99285; 96360; 36415; 80177; 80307 ×2; 83735; 85025; 80053; 81001; 71045; 70450; 72125; 93010; J7030

== ENCOUNTER 2019-08-23 17:44 | Emergency (ER) | payer SELFPAY ==
[2019-08-23 18:04] LABS: ABSOLUTE BASOPHILS # (AUTO) 0.1 10^3/uL (0.0-0.2); ABSOLUTE LYMPHOCYTES (AUTO) 2.2 10^3/uL (0.5-4.7); ABSOLUTE MONOCYTES (AUTO) 0.6 10^3/uL (0.1-1.4); ABSOLUTE NEUT (AUTO) 3.9 10^3/uL (1.7-8.2); BASOPHILS % (AUTO) 0.9 % (0-2); EOSINOPHILS % (AUTO) 0.6 % (0-6); HEMATOCRIT 46.1 % (37.9-51.0); HEMOGLOBIN 16.3 g/dL (13.5-17.0); MEAN CORPUSCULAR HEMOGLOBIN 34.5 pg (27.0-33.4); MEAN CORPUSCULAR HGB CONC 35.3 g/dL (32.0-36.0); MEAN CORPUSCULAR VOLUME 98 fl (80-97); MONOCYTES % (AUTO) 8.1 % (3-13); RED BLOOD COUNT 4.72 10^6/uL (4.35-5.55); RED CELL DISTRIBUTION WIDTH 14.8 % (11.5-14.0); SEGMENTED NEUTROPHILS % (AUTO) 57.4 % (42-78); TOTAL CELLS COUNTED % (AUTO) 100 %; WHITE BLOOD COUNT 6.8 10^3/uL (4.0-10.5)
[2019-08-23 18:07] LABS: APPEARANCE,URINE CLEAR; BILIRUBIN,URINE NEGATIVE (NEGATIVE); COLOR,URINE STRAW; GLUCOSE, URINE NEGATIVE (NEGATIVE); KETONES,URINE NEGATIVE (NEGATIVE); LEUKOCYTE ESTERASE,URINE NEGATIVE (NEGATIVE); NITRITE,URINE NEGATIVE (NEGATIVE); PROTEIN,URINE NEGATIVE (NEGATIVE); URINE SPECIFIC GRAVITY 1.004; UROBILINOGEN,URINE NEGATIVE mg/dL (<2.0)
[2019-08-23 18:19] LABS: ALBUMIN 3.2 g/dL (3.5-5.0); ALKALINE PHOSPHATASE 83 U/L (38-126); ANION GAP 8 (5-19); ASPARTATE AMINO TRANSFERASE 78 U/L (17-59); BILIRUBIN,TOTAL 0.4 mg/dL (0.2-1.3); BLOOD UREA NITROGEN 12 mg/dL (7-20); CARBON DIOXIDE 22 mmol/L (22-30); CHLORIDE 111 mmol/L (98-107); GLUCOSE 115 mg/dL (75-110); POTASSIUM 3.2 mmol/L (3.6-5.0)
--- NOTE | 2019-08-23 18:27 | ER Document Report ---
ED General <MARISOLROBBIN SANCHEZ - Last Filed: 08/24/19 15:34> - General TRAVEL OUTSIDE OF THE [place] IN LAST 30 DAYS: No - Related Data Home Medications: KEPPRA 500MG Q12H <TOMA PROCTOR - Last Filed: 08/24/19 16:03> - General Chief Complaint: ETOH Abuse Stated Complaint: ETOH Time Seen by Provider: 08/23/19 18:02 Primary Care Provider: [facility] [Outside] - Follow up as needed (For voluntary inpatient alcohol detoxification. [phone], walk in to their facility or utilize mobile crisis for linkage) [facility] [Outside] - Follow up as needed [facility] [Outside] - 08/25/19 8:00 am (Can go directly there from Emergency Department discharge today (08/24/2019) but if not then first thing tomorrow (08/25/2019) morning. Walk ins are Mondays-Fridays 8:00AM-4:30PM) [facility] [Outside] - Follow up as needed - [facility] Notes: Patient is a 33-year-old gentleman who presents to the emergency department for evaluation. Initially, the patient states to me that he was shaking all over. He started drinking to help the shakes. He does have a history of alcohol withdrawal. He states to me that he just drank a few beers. Patient also reported to staff that he is suicidal. He states he tried to shoot himself in the past, was unsuccessful. He states he planned to hang himself. The patient will not offer me any more useful history. He became belligerent and abusive during initial exam. (TOMA PROCTOR) - Related Data Allergies/Adverse Reactions: No Known Allergies Allergy (Verified 08/24/19 07:22) Past Medical History - General Information source: [facility] Records - Social History Smoking Status: Current Every Day Smoker Frequency of alcohol use: Heavy Family History: Reviewed & Not Pertinent Patient has homicidal ideation: No Neurological Medical History: Reports: Hx Seizures - with ETOH withdrawal Renal/ Medical History: Denies: Hx Peritoneal Dialysis Psychiatric Medical History: Reports: Hx Depression Past Surgical History: Reports: Hx Tonsillectomy - Immunizations Hx Diphtheria, Pertussis, Tetanus Vaccination: Yes <TOMA PROCTOR - Last Filed: 08/24/19 16:03> Review of Systems - Review of Systems -: Yes ROS unobtainable due to patient's medical condition - Patient uncooperative <TOMA PROCTOR - Last Filed: 08/24/19 16:03> Physical Exam <TOMA PROCTOR - Last Filed: 08/24/19 16:03> - Vital signs Vitals: Temp 99.1 F 08/23/19 17:44 - Notes Notes: This is a 33-year-old male appears his stated age. He smells strongly of alcohol. He is belligerent, not cooperative with examiner. Head is normocephalic and appears atraumatic, pupils are equal round, reactive to light. Oral mucosa is moist. He will not allow me to evaluate inside his mouth for any signs of bite trauma. Heart is regular rate and rhythm, lungs encrustation bilaterally. Patient's voice is slurred, consistent with alcohol intoxication. He moves all 4 extremities spontaneously. No gross facial asymmetry. Skin is warm and dry. (TOMA PROCTOR) Course - Laboratory Result Diagrams: 08/23/19 17:15 08/24/19 06:18 <ROBBIN PERES - Last Filed: 08/24/19 15:34> - Laboratory Result Diagrams: 08/23/19 17:15 08/24/19 06:18 <TOMA PROCTOR - Last Filed: 08/24/19 16:03> - Re-evaluation Re-evalutation: 08/23/19 18:26 Patient presents to the emergency department for evaluation. The patient became guarded during my interview, and then became aggressive. He threatened to leave the department. Has expressed his suicidal ideations, and is currently intoxicated. I do not believe that this gentleman would be safe to leave the department. IVC papers for 24-hour hold were signed. Patient's belongings were taken, he was changed out of his clothes into a paper gown. He is stable at this time. Awaiting blood work, we will continue to monitor. 08/23/19 19:44 Patient's laboratory investigations reveal hypocalcemia, hypokalemia, and marked alcohol intoxication. He was administered calcium carbonate, to be started daily. He was given oral potassium. He was given oral thiamine and folate. I did restart him on his Keppra, it appears that he has been prescribed 500 mg twice daily in the past. His Keppra level is still pending at this time. Repeat CMP and alcohol level have been reordered for 630 tomorrow morning. If labs have improved at that time, he will be medically cleared for psychosocial evaluation. 08/24/19 16:02 Patient seen and again examined again today. His alcohol level has come down significantly. His metabolic panel shows improved hypocalcemia, improved hypokalemia. Patient denies any suicidality at this time. It was explained to the patient that he should consider medical detox, as he has a history of alcohol withdrawal induced seizures. The patient declined this. He states he can get help on his own. He is a not opposed to going to [place], we will have him go there straight from the hospital. At this time he denies any pain com plaints. He has no immediate needs. Chart reviewed. Head is normocephalic and atraumatic, pupils are equal round, reactive to light. Heart regular rate rhythm, lungs are clear laceration bilaterally. Patient is calm and cooperative with examiner. He will be discharged with appropriate follow-up. (TOMA PROCTOR) - Vital Signs Vital signs: Temp Pulse Resp BP Pulse Ox 98.5 F 74 12 108/72 95 08/24/19 07:17 08/24/19 07:17 08/24/19 07:17 08/24/19 07:17 08/24/19 07:17 - Laboratory Laboratory results interpreted by me: 08/23/19 08/23/19 08/24/19 17:15 17:15 06:18 MCV 98 H MCH 34.5 H RDW 14.8 H Plt Count 89 L Potassium 3.2 L Chloride 111 H Glucose 115 H Calcium 6.7 L* AST 78 H 172 H ALT 63 H 83 H Total Protein 6.0 L Albumin 3.2 L Salicylates < 1.0 L Acetaminophen < 10 L Serum Alcohol 401 H* - EKG Interpretation by Me Additional EKG results interpreted by me: 08/23/19 18:27 Sinus mechanism with a rate of 97 bpm. Normal axis and intervals. No acute ST changes concerning for ischemia or infarction. (TOMA PROCTOR) Discharge <ROBBIN PERES - Last Filed: 08/24/19 15:34> <FRIES,LUNDYN M - Last Filed: 08/24/19 16:03> - Discharge Clinical Impression: Alcohol abuse, Alcohol intoxication, Suicidal ideation, Hypokalemia, H ypocalcemia Condition: Stable Disposition: HOME, SELF-CARE Instructions: Acute Alcohol Intoxication ([facility]), Chronic Alcoholism ([facility]), Hypokalemia ([facility]) Additional Instructions: Your calcium and potassium levels were low on arrival. These issues can arise, particularly when someone is drinking alcohol heavily and neglecting nutrition. Follow-up in regards to this issue with your primary care provider next week. You have been evaluated by both medical and behavioral health teams for alcohol intoxication, alcohol use disorder and suicidal ideation. You have been deemed appropriate for discharge. While in the emergency department you received the following services: Medical screening and assessment, nursing services, dietary services, pharmacological services, one-on-one counseling and/or psychotherapy, environmental services, and continuous observation by a patient truck safety inspector. You are recommended to go to voluntary alcohol detoxification at a place like [facility], then you can follow up with a detention recovery program or at the very least outpatient dual diagnosis (substance abuse and mental health) services at a place like [facility]. Medi cations are very helpful during alcohol withdrawal/detoxification period as they help with things like seizures, sleep, depression, anxiety and mood disturbance. Some of these issues will be ongoing after continued abstinence so medications are often continued. When taking medications should take them as directed and be monitored by a psychiatrist/medication provider. You declined direct linkage and referral to [facility] but contact information is still provided as this is the level of care recommended. At the very least you are recommended to re establish services with [facility] as a walk in. CHRONIC ALCOHOLISM and ALCOHOL ABUSE: (alcohol is a depressant do often increases depression and suicidal ideation) Your evaluation reveals evidence of chronic alcoholism, an addiction to alcohol. The tendency to alcoholism may be inherited. Chronic use of alcohol weakens muscles, causes fatty deposits in the liver, damages the stomach, makes you more prone to infections, and can cause defects in unborn children. In the long run, brain atrophy and cirrhosis of the liver result. You are also at greater risk for certain types of cancer, such as cancer of the mouth, throat, stomach, and liver. Counselling services are available to help you. In-hospital treatment programs often help. Support groups such as Alcoholics Anonymous can be very useful in beating this addiction. Your physician can make a referral for you. As alcoholics often are prone to other addictions, you should discuss your use of any other medications with the doctor. ALCOHOL WITHDRAWAL: (concern for this if you stop alcohol abruptly, detoxification recommended) Your symptoms are caused by alcohol withdrawal. After a period of frequent drinking, the brain and body are changed by the alcohol. When you quit or reduce your drinking, the nervous system becomes unstable. Withdrawal symptoms can start a few hours after your last drink, but sometimes don't begin until a couple of days later. Symptoms can include shakiness, sweating, insomnia, nausea, vomiting, fearfulness, hallucinations, and seizures. In addition to the acute effects of alcohol withdrawal, we often have to deal with the medical effects of alcoholism. These problems often include dehydration, stomach irritation, intestinal bleeding, low blood sugar, liver disease, and pancreas inflammation. Treatment for alcohol withdrawal includes mild sedatives, vitamins, and fluids. You need to be with someone who can help if symptoms become severe. Many patients can withdraw at home. Admission to the hospital or a detox facility may be necessary if withdrawal symptoms are severe and uncontrollable. Abstaining from alcohol is the only effective long-term treatment. If you start drinking again, you will not be able to control yourself after the first drink. Treatment programs are available. In addition, many alcoholics benefit from Alcoholics Anonymous or other support groups available through your counselor or druze office inspector. AL-ANON and ALA-TEEN are support groups for friends and family members of an alcoholic. Go to the emergency room if you develop persistent vomiting, severe abdominal pain, fever, shortness of breath, hallucinations, uncontrollable tremors, or seizures. DEPRESSION: (alcohol is a depressant do often increases depression and suicidal ideation) Your evaluation reveals that you have mental depression. While symptoms may be vague, they often include disturbance of sleep, fatigue, loss of appetite, and general loss of interest in life. While depression may be a side effect of drugs, or a reaction to a major change in your life, many cases have no known cause. If depression is acute, and related to a major loss in your life, you can expect it to clear completely with time. If you have been depressed a long time, are prone to repeated bouts of depression or low mood, or have been thinking of suicide, get help. Depression can be treated with anti-depressant medication and counselling. Long-term depression will often take a few weeks to clear, even with appropriate medication. Follow-up care is important. SUICIDAL IDEATION: (alcohol is a depressant do often increases depression and suicidal ideation) Suicidal ideation is a common medical term for thoughts about suicide, which may be as detailed as a formulated plan, without the suicidal act itself. Although most people who undergo suicidal ideation do not commit suicide, some go on to make suicide attempts. The range of suicidal ideation varies greatly from fleeting to detailed planning, role playing, and unsuccessful attempts. While thoughts about suicide are common, most people do not carry out serious actions to commit suicide. Based upon your evaluation and discussion with you, we do not believe you are currently at risk to act upon your thoughts of suicide. You have agreed to return to the Emergency Department, at any time, if you feel inclined to act upon your suicidal thoughts. FOLLOW-UP CARE: You are recommended for voluntary inpatient alcohol detofication however you declined direct lilnkage and referral to [facility] (contact information provided). You are recommended to do a walk in to [facility] first thing tomorrow (08/25/2019) morning to re establish services. You can walk in to [facility] Mondays-Fridays 8:00AM-4:30PM. You may be able to go directly from the emergency department to [facility] at discharge today. If you experience worsening or a significant change in your symptoms notify you physician immediately, return to the Emergency Department at any time for re- evaluation or utilize mobile crisis. Referrals: [facility] [Outside] - Follow up as needed [facility] [Outside] - Follow up as needed [facility] [Outside] - Follow up as needed (For voluntary inpatient alcohol detoxification. [phone], walk in to their facility or utilize mobile crisis for linkage) [facility] [Outside] - 08/25/19 8:00 am (Can go directly there from Emergency Department discharge today (08/24/2019) but if not then first thing tomorrow (08/25/2019) morning. Walk ins are Mondays-Fridays 8:00AM-4:30PM)
[2019-08-23 18:32] LABS: PLATELET COUNT 89 10^3/uL (150-450)
[2019-08-23 18:41] LABS: ACETAMINOPHEN < 10 ug/mL (10-30); ALCOHOL 401 mg/dL (NONE DETECTED); CALCIUM 6.7 mg/dL (8.4-10.2); SALICYLATE < 1.0 mg/dL (2.0-20.0)
[2019-08-23 18:48] LABS: URINE AMPHETAMINES SCREEN NEGATIVE; URINE BARBITURATES SCREEN NEGATIVE; URINE BENZODIAZEPINES SCREEN NEGATIVE; URINE COCAINE SCREEN NEGATIVE; URINE MARIJUANA (THC) SCREEN NEGATIVE; URINE METHADONE SCREEN NEGATIVE; URINE PHENCYCLIDINE SCREEN NEGATIVE
[2019-08-23] MEDS ORDERED: POTASSIUM CHLORIDE 10 MEQ TABLET.ER PO ONE (19:03)
[2019-08-23] MEDS ORDERED: THIAMINE HCL 100 MG TABLET PO ONE (19:03)
[2019-08-23] MEDS ORDERED: FOLIC ACID 1 MG TABLET PO ONE (19:03)
[2019-08-23] MEDS ORDERED: HALOPERIDOL LACTATE INJ 5 MG/1 ML VIAL IM PRN (19:04)
[2019-08-23] MEDS ORDERED: BENZTROPINE MESYLATE INJ 2 MG/2 ML AMPULE IM PRN (19:05)
[2019-08-23] MEDS ORDERED: CALCIUM CARBONATE 600 MG TABLET PO SCH (19:15)
[2019-08-23] MEDS: LEVETIRACETAM 500 MG TABLET PO SCH (20:13)
--- NOTE | 2019-08-23 20:40 | PSYCHOLOGICAL NOTE ---
Psych Note - Psych Note Date seen by psych provider: 08/23/19 Time seen by psych provider: 18:25 Psych Note: Presenting Problem: Patient is a 33 year old male who presented to the [facility] ED today via EMS for shaking, drinking a couple beers to help the shaking, stated SI to medical staff where he had a plan to hang self and had tried to shoot himself in the past, and then became uncooperative/belligerent (locked himself in the bathroom, yelling) with ED Physician during initial assessment. He was subsequently put on a 24 Hour Petition for Evaluation. Overheard patient yelling when ED Provider went in for initial assessment. Provider called for security and stated patient locked himself in the bathroom. Serum Alcohol Level upon arrival to the ED was 401. he was transferred to another ED room. Observed him appropriately interact with patinet injury/safety hazard assessment, he stayed in his room and eventually went to sleep. Allowed for patient to sleep. Patient has been seen in the [facility] ED for similar etiology twice in 2015 (during one visit Serum Alcohol level was 258), three times in 2017 (during one visit Serum Alcohol Level was a 372) and once in 2018 (patient was held on IVC, started Effexor 37.5MG BID and Buspar 10MG BID and accepted to [facility] for inpatient hospitalization. The last medication he had filled per [facility] via his pharmacy was Keppra 500MG BID 07/07/2019 from ED provider, and 04/25/2019 from ED provider. The [place] Controlled Substance Data Base going back to 2016 has listed 4 prescriptions/3 providers/2 pharmacies, Buprenoprhine/Morphine/Lorazepam listed as overdose risk score of 80, he hasn't had anything filled since 2018. Buprenorphine was not listed via last fill date. Hydrocodone-Acetaminophen was filled 10/21/17 and then Oxycodone and Ativan were last filled 08/24/16. Patient was alert and oriented to self, person, place. Mood was labile with congruent affect as evidenced by being irritable then euthymic. He endorsed SI to medical staff with plan to hang self and noted a previous attempt at shooting self but was unsuccessful. Patient did not appear to be responding to internal stimuli as evidenced by being able to appropriately interact when he needed things. Conversational speech was loud in tone when irritable and somewhat slurred. Thought processes are slower. Intellectual abilities are estimated to be average. Insight, judgment and impulse control were poor as evidenced by alcohol intoxication and being uncooperative. Interventions: Used observation, ED Physician report and chart review to obtain history. Diagnosis: Alcohol Intoxication with Use Disorder Severe Suicidal Ideation with reported plan to hang self; previous attempt at shooting self per patient and previous visit documentation Medication recommendations made by the psychiatric medication provider, Dr. Chica COPPOLA, includes: Add Haldol 5MG IM every 6 hours as needed for agitation/anxiety Add Cogentin 1MG IM daily given with Haldol to curb tremor side effects often associated with antipsychotic medications Impression/Plan: Recommendation for 24 Hour Petition for Evaluation. Patient's Serum Alcohol Level was 401 upon arrival to the ED. He is under the influence of alcohol which inhibits cognition and this increases poor ins ight/judgment/impulse control. He demonstrated mood lability (irritable to euthymic). Will reassess tomorrow morning once he has had time to sober up from alcohol. Consulted with Dr. Ogden regarding the management and care of patient. ED Physician in agreement with recommendations.
[2019-08-23] MEDS ORDERED: CALCIUM CARBONATE 600 MG TABLET ONE (23:24)
--- NOTE | 2019-08-23 23:43 | EKG REPORT ---
SEVERITY:- NORMAL ECG - SINUS RHYTHM : Confirmed by: Porsha Dickens MD 23-Aug-2019 23:42:45
[2019-08-24 06:56] LABS: ALBUMIN 3.5 g/dL (3.5-5.0); ALCOHOL 240 mg/dL (NONE DETECTED); ALKALINE PHOSPHATASE 87 U/L (38-126); ANION GAP 10 (5-19); ASPARTATE AMINO TRANSFERASE 172 U/L (17-59); BILIRUBIN,TOTAL 0.6 mg/dL (0.2-1.3); BLOOD UREA NITROGEN 15 mg/dL (7-20); CALCIUM 8.6 mg/dL (8.4-10.2); CARBON DIOXIDE 24 mmol/L (22-30); CHLORIDE 104 mmol/L (98-107); GLUCOSE 108 mg/dL (75-110); TOTAL PROTEIN 6.4 g/dL (6.3-8.2)
[2019-08-24 07:17] LABS: POTASSIUM 4.5 mmol/L (3.6-5.0)
[2019-08-24] MEDS: LEVETIRACETAM 500 MG TABLET PO SCH (07:46)
[2019-08-24 16:12] VITALS: BP 122/97
--- NOTE | 2019-08-24 19:31 | PSYCHOLOGICAL NOTE ---
Psych Note - Psych Note Date seen by psych provider: 08/24/19 Time seen by psych provider: 13:66 - [id number], [phone]. Psych Note: Presenting Problem: Patient is a 33 year old male who presented to the [facility] ED yesterday via EMS for shaking, drinking a couple beers to help the shaking, stated SI to medical staff where he had a plan to hang self and had tried to shoot himself in the past, and then became uncooperative/belligerent (locked himself in the bathroom, yelling) with ED Physician during initial assessment. He was subsequently put on a 24 Hour Petition for Evaluation. Yesterday consisted of observation, ED Physician report and chart review. Today was initial face to face assessment with patient now that he is sober (Serum Alcohol Level upon arrival to the ED was 401). Today patient stated he was "doing alright." When asked what happened last night he commented "I guess I was drunk." He reported drinking only beer. He stated he drinks regularly. He said he did not remember making suicidal statements. Patient denied previous suicide attempts even when confronted about telling medical staff last night he had tried to shoot himself in the past but was unsuccessful, as well as previous ED visits where he said the same. Patient denied current SI/HI. He admitted to prior alcohol treatment and mentioned "it was a couple years ago at [facility]." He admitted to previous mental health hospitalizations when he was ages 31 and 32 but could not recall names of facilities or why he was sent there. He identified [place] [address]. He admitted to having an alcohol problem and declined current linkage/referral to [facility]. He stated "I'll get it." He denied other substance use. Patient stated "I just need to find a way home," mentioned he resides with his girlfriend Liberty but did not know her number and said she does not drive. A couple hours later went back to ask patient what his plan was once he got home. He said "I don't know, I used to drink a lot, I can cut back, I need to go back to [place]." He was still worried about how he was getting home. He continued to decline linkage and referral to [facility]. This clinician said since he is denying detox linkage and did not have a plan once home until brainstorming was suki humphries the plan would be for him to walk directly to [facility] upon discharge from the ED. Patient was alert and oriented to self, person, place, time and situation. Mood was euthymic with congruent affect. He denied current SI/HI, said he did not remember making statements to medical staff last night and said he was drunk. Patient did not appear to be responding to internal stimuli as evidenced by fair eye contact and answering questions appropriately when addressed. Conversational speech was within normal limits for rate, tone and prosody. Thought processes were linear and organized. Intellectual abilities are estimated to be average. Insight, judgment and impulse control were fair as evidenced by being sober, following directives and hospital rules and being engaged in evaluation. Patient gave verbal consent to call his girlfriend, of 4 years/they reside together, to include in plan of care. Tried calling patient's girlfriend 4 times from [phone], no answer each time, left voice mail the first time with call back information. Patient mentioned calling his mother who works on one of the floors at [facility]. He stated he did not have her number and it was not listed as emergency contact. Observed patient use the hallway phone across from ED room [address] out of the hospital (at discharge, when walking out). Interventions: Used open ended questioning to get patient to discuss presenting problem, history and elaborate when needed. Psychoeducated patient on the need for medical monitoring for alcohol withdrawal. Challenged and confronted patient when he declined linkage/referral to [facility] for voluntary alcohol detox, when he did not have a plan for once he's home and doing a walk in to [facility] today at discharge since he is already in the location and is concerned about tra nsportation anyway. Encouraged brainstorming regarding plan for when he got home. Diagnosis: Alcohol Intoxication with Use Disorder Severe Suicidal Ideation with reported plan to hang self Impression/Plan: Patient is cleared from acute psychiatric services. Recommendation to RESCIND 24 Hour Petition for Evaluation. Patient has sobered up from alcohol intoxication and is no longer under the influence. He denied current SI/HI and said he did not remember making statements last night while also admitting he was drunk. He was linear and organized in his thinking and no observed psychosis. Informed patient recommendation for next level of treatment was voluntary inpatient for alcohol detox at [facility]. He declined. This clinician made this recommendations several time, each time explained could make direct referral and each time patient declined. When patient did not have a plan for once home until encouraged to brainstorm he was instructed to re establish services with [facility] via walk in today at discharge (if time allowed) or first thing tomorrow (08/25/2019) morning. Provided the outpatient mental health resource sheet which highlighted both [facility] numbers and documented walk in to [facility]. Also provided the outpatient substance abuse resource sheet which highlighted [facility] and documented this was recommended treatment for voluntary alcohol detox. Tried calling patient's girlfriend 4 times from [phone], no answer each time, left voice mail the first time with call back information. Consulted with Dr. Ogden regarding the management and care of patient. ED Physician in agreement with recommendations.
== END 2019-08-24 16:21 | disposition home or self-care (01) ==
LOC: ER 17:44
DX: F10.129 Alcohol abuse with intoxication, unspecified (principal); Y90.8 Blood alcohol level of 240 mg/100 ml or more; E87.6 Hypokalemia; E83.51 Hypocalcemia; F17.200 Nicotine dependence, unspecified, uncomplicated
CPT/HCPCS: 93005; 99285; 96372; 36415; 80177; 80307 ×4; 85025; 80053; 81001; 93010; J0515; J1630; J3490

== ENCOUNTER 2019-10-19 22:22 | Inpatient (IN) | payer SELFPAY ==
[2019-10-19] MEDS ORDERED: NORMAL SALINE 1000 ML 1,000 ML IV ONE (22:48)
[2019-10-19] MEDS ORDERED: ONDANSETRON HCL INJ/PF 4 MG/2 ML SDV IV ONE (22:48)
--- NOTE | 2019-10-19 22:49 | ER Document Report ---
ED Medical Screen (RME) - General Chief Complaint: Abdominal Pain Stated Complaint: ABDOMINAL PAIN Time Seen by Provider: 10/19/19 22:47 Mode of Arrival: Medic Information source: Patient Notes: Patient presents complaining of right upper quadrant abdominal pain since 2 PM. Patient does report drinking yesterday. Patient reports a history of pancreatitis and states this feels similar to when he has had pancreatitis in the past. Patient reports nausea vomiting x1 episode. No fever. Patient denies any cough or cold symptoms. I have greeted and performed a rapid initial assessment of this patient. A comprehensive ED assessment and evaluation of the patient, analysis of test results and completion of the medical decision making process will be conducted by additional ED providers. TRAVEL OUTSIDE OF THE [place] IN LAST 30 DAYS: No - Related Data Allergies/Adverse Reactions: No Known Allergies Allergy (Verified 08/24/19 07:22) Past Medical History Neurological Medical History: Reports: Hx Seizures - with ETOH withdrawal Renal/ Medical History: Denies: Hx Peritoneal Dialysis Psychiatric Medical History: Reports: Hx Depression Past Surgical History: Reports: Hx Tonsillectomy - Immunizations Hx Diphtheria, Pertussis, Tetanus Vaccination: Yes Physical Exam - Vital signs Vitals: Temp Pulse Resp BP Pulse Ox 97.7 F 90 20 150/131 H 98 10/19/19 22:42 10/19/19 22:42 10/19/19 22:42 10/19/19 22:42 10/19/19 22:42 - Abdominal Tenderness: Tender - Right upper quadrant tenderness, exam limited due to patient sitting in a wheelchair Course - Vital Signs Vital signs: Temp Pulse Resp BP Pulse Ox 97.7 F 90 20 150/131 H 98 10/19/19 22:42 10/19/19 22:42 10/19/19 22:42 10/19/19 22:42 10/19/19 22:42
[2019-10-19 23:08] LABS: ABSOLUTE BASOPHILS # (AUTO) 0.1 10^3/uL (0.0-0.2); ABSOLUTE EOSINOPHILS # (AUTO) 0.1 10^3/uL (0.0-0.6); ABSOLUTE LYMPHOCYTES (AUTO) 1.7 10^3/uL (0.5-4.7); ABSOLUTE MONOCYTES (AUTO) 0.8 10^3/uL (0.1-1.4); ABSOLUTE NEUT (AUTO) 6.9 10^3/uL (1.7-8.2); BASOPHILS % (AUTO) 1.2 % (0-2); EOSINOPHILS % (AUTO) 0.5 % (0-6); HEMATOCRIT 48.1 % (37.9-51.0); HEMOGLOBIN 17.2 g/dL (13.5-17.0); LYMPHOCYTES % (AUTO) 17.7 % (13-45); MEAN CORPUSCULAR HEMOGLOBIN 36.5 pg (27.0-33.4); MEAN CORPUSCULAR HGB CONC 35.8 g/dL (32.0-36.0); MEAN CORPUSCULAR VOLUME 102 fl (80-97); MONOCYTES % (AUTO) 8.1 % (3-13); PLATELET COUNT 218 10^3/uL (150-450); RED BLOOD COUNT 4.72 10^6/uL (4.35-5.55); RED CELL DISTRIBUTION WIDTH 14.8 % (11.5-14.0); SEGMENTED NEUTROPHILS % (AUTO) 72.5 % (42-78); TOTAL CELLS COUNTED % (AUTO) 100 %; WHITE BLOOD COUNT 9.4 10^3/uL (4.0-10.5)
[2019-10-19 23:12] LABS: ALBUMIN 4.4 g/dL (3.5-5.0); ALCOHOL 191 mg/dL (NONE DETECTED); ALKALINE PHOSPHATASE 120 U/L (38-126); ANION GAP 12 (5-19); ASPARTATE AMINO TRANSFERASE 166 U/L (17-59); BILIRUBIN,DIRECT 0.1 mg/dL (0.0-0.4); BILIRUBIN,TOTAL 0.6 mg/dL (0.2-1.3); BLOOD UREA NITROGEN 16 mg/dL (7-20); CALCIUM 9.1 mg/dL (8.4-10.2); CARBON DIOXIDE 19 mmol/L (22-30); CHLORIDE 103 mmol/L (98-107); GLUCOSE 115 mg/dL (75-110); POTASSIUM 4.3 mmol/L (3.6-5.0); TOTAL PROTEIN 8.2 g/dL (6.3-8.2)
--- NOTE | 2019-10-19 23:34 | RADIOLOGY REPORT (SQ) ---
EXAM DESCRIPTION: US ABDOMEN LIMITED COMPLETED DATE/TME: 10/19/2019 22:47 CLINICAL HISTORY: 33 years, Male, RUQ pain COMPARISON: None. TECHNIQUE: LIMITATIONS: None. FINDINGS: There is mild hepatomegaly, with the liver measuring 18.2 cm in cephalocaudal dimension. The liver is hyperechogenic, compatible with fatty infiltration. There is a small amount of gallbladder sludge. No gallstones. No evidence of gallbladder wall thickening or pericholecystic fluid. The genetic technologist reported a negative sonographic Briseno sign. No evidence of biliary tree dilatation. The right kidney is unremarkable. The abdominal aorta is normal in caliber. The pancreas was not adequately visualized due to overlying bowel gas. IMPRESSION: Small amount of gallbladder sludge, with no sonographic evidence of cholecystitis. Mildly enlarged, fatty liver. copyright 2010 [employer] [facility] [employer]- All Rights Reserved
[2019-10-20] MEDS ORDERED: PROCHLORPERAZINE EDISYLATE INJ 10 MG/2 ML VIAL IV ONE (00:04)
[2019-10-20] MEDS ORDERED: DIPHENHYDRAMINE HCL 50 MG/ML VIAL IV ONE (00:04)
[2019-10-20] MEDS ORDERED: NORMAL SALINE 1000 ML 1,000 ML IV ONE (00:52)
[2019-10-20 03:09] LABS: APPEARANCE,URINE CLEAR; BILIRUBIN,URINE NEGATIVE (NEGATIVE); COLOR,URINE YELLOW; GLUCOSE, URINE NEGATIVE (NEGATIVE); KETONES,URINE NEGATIVE (NEGATIVE); LEUKOCYTE ESTERASE,URINE NEGATIVE (NEGATIVE); NITRITE,URINE NEGATIVE (NEGATIVE); PROTEIN,URINE 30 mg/dL (NEGATIVE); URINE SPECIFIC GRAVITY 1.021; UROBILINOGEN,URINE NEGATIVE mg/dL (<2.0)
[2019-10-20] MEDS ORDERED: MORPHINE SULFATE 10 MG/ML INJ IV ONE ×2 (03:20→05:22)
[2019-10-20] MEDS ORDERED: RINGERS SOLUTION,LACTATED 1,000 ML IV ONE (03:21)
--- NOTE | 2019-10-20 03:26 | ER Document Report ---
ED GI/ - General Chief Complaint: Abdominal Pain Stated Complaint: ABDOMINAL PAIN Time Seen by Provider: 10/19/19 22:47 Mode of Arrival: Medic Information source: Patient Notes: 33-year-old male patient presents emergency department chief complaint of right upper quadrant and epigastric abdominal pain. Patient reports the pain started around 2:00 yesterday afternoon and has had persistent vomiting. Patient denies any fever, chills or diarrhea. He does report having 2 alcoholic beverages yesterday morning but denies having any alcohol since that time. He denies any history of pancreatitis. TRAVEL OUTSIDE OF THE [place] IN LAST 30 DAYS: No - Related Data Allergies/Adverse Reactions: No Known Allergies Allergy (Verified 08/24/19 07:22) Home Medications: Keppra Past Medical History - General Information source: Patient - Social History Smoking Status: Current Every Day Smoker Frequency of alcohol use: Heavy Drug Abuse: None Family History: Reviewed & Not Pertinent Patient has homicidal ideation: No Neurological Medical History: Reports: Hx Seizures - with ETOH withdrawal Renal/ Medical History: Denies: Hx Peritoneal Dialysis Psychiatric Medical History: Reports: Hx Depression Past Surgical History: Reports: Hx Tonsillectomy - Immunizations Hx Diphtheria, Pertussis, Tetanus Vaccination: Yes Review of Systems - Review of Systems Constitutional: No symptoms reported EENT: No symptoms reported Cardiovascular: No symptoms reported Respiratory: No symptoms reported Gastrointestinal: Abdominal pain, Nausea, Vomiting Genitourinary: No symptoms reported Male Genitourinary: No symptoms reported Musculoskeletal: No symptoms reported Skin: No symptoms reported Hematologic/Lymphatic: No symptoms reported Neurological/Psychological: No symptoms reported Physical Exam - Vital signs Vitals: Temp Pulse Resp BP Pulse Ox 97.7 F 90 20 150/131 H 98 10/19/19 22:42 10/19/19 22:42 10/19/19 22:42 10/19/19 22:42 10/19/19 22:42 - Notes Notes: PHYSICAL EXAMINATION: GENERAL: Appears to be in moderate distress HEAD: Atraumatic, normocephalic. EYES: Pupils equal round and reactive to light, extraocular movements intact, sclera anicteric, conjunctiva are normal. ENT: Nares patent, oropharynx clear without exudates. Moist mucous membranes. NECK: Normal range of motion, supple without lymphadenopathy LUNGS: Breath sounds clear to auscultation bilaterally and equal. No wheezes rales or rhonchi. HEART: Regular rate and rhythm without murmurs ABDOMEN: Soft, No guarding, no rebound. No masses appreciated. Musculoskeletal: Normal range of motion, no pitting or edema. No cyanosis. NEUROLOGICAL: Cranial nerves grossly intact. Normal speech, normal gait. Normal sensory, motor exams PSYCH: Normal mood, normal affect. SKIN: Warm, Dry, normal turgor, no rashes or lesions noted. Course - Re-evaluation Re-evalutation: Hospitalist contacted for admission for alcoholic pancreatitis. Dr. Reddy accepting. - Vital Signs Vital signs: Temp Pulse Resp BP Pulse Ox 97.7 F 90 22 H 131/100 H 98 10/19/19 22:42 10/19/19 22:42 10/20/19 05:01 10/20/19 05:01 10/20/19 05:01 - Laboratory Result Diagrams: 10/19/19 22:27 10/19/19 22:27 Laboratory results interpreted by me: 10/19/19 10/19/19 10/20/19 22:27 22:27 02:43 Hgb 17.2 H MCV 102 H MCH 36.5 H RDW 14.8 H Sodium 134.3 L Carbon Dioxide 19 L Glucose 115 H AST 166 H ALT 81 H Lipase 1271.0 H Urine Protein 30 H Discharge - Discharge Clinical Impression: Pancreatitis, alcoholic, acute Qualifiers: Acute pancreatitis complication: no infection or necrosis Qualified Code(s): K85.20 - Alcohol induced acute pancreatitis without necrosis or infection Condition: Stable Disposition: ADMITTED INPATIENT Admitting Provider: Maureen (Hospitalist) Unit Admitted: Telemetry
[2019-10-20] MEDS ORDERED: DIAZEPAM INJ 10 MG/2 ML DISP.SYRIN IV PRN (05:39)
[2019-10-20] MEDS ORDERED: RINGERS SOLUTION,LACTATED 1,000 ML IV PRN (05:39)
[2019-10-20] MEDS ORDERED: MORPHINE SULFATE 10 MG/ML INJ IV PRN (05:39)
--- NOTE | 2019-10-20 05:50 | PDOC H&P ---
History of Present Illness History of Present Illness: MANISHA DIALLO is a 33 year old male with a history of heavy alcohol consumption who presents with abdominal pain since 2 PM yesterday afternoon. He has experienced some nausea and vomiting with it. He says the pain is in the middle of his abdomen. He describes it as a dull crampy ache. He says the last time he had anything to drink was yesterday afternoon he only had one beer but is blood alcohol level is 191. He has had an episode of pancreatitis before, he says a few years ago. He does not have a doctor and he does not take any medications at home. He said the only time he ever had seizures was when he had severe alcohol withdrawal. He said he cannot go more than about half a day without a drink before he starts to have some tremulousness. Abdominal ultrasound showed some sludge in the gallbladder but no evidence of cholecystitis. Past Medical History Neurological Medical History: Reports: Seizures - with ETOH withdrawal Psychiatric Medical History: Reports: Depression Past Surgical History Past Surgical History: Reports: Tonsillectomy Social History Smoking Status: Current Every Day Smoker Frequency of Alcohol Use: Heavy Hx Recreational Drug Use: No Family History Family History: Reviewed & Not Pertinent Parental Family History Reviewed: Yes - He does not know Children Family History Reviewed: NA Sibling(s) Family History Reviewed.: Unknown Medication/Allergy Home Medications: Lorazepam [Ativan 1 mg Tablet] 1 mg PO Q4HP PRN 08/29/16 Oxycodone HCl [Oxy-Ir 5 mg Tablet] 10 mg PO Q6HP PRN 08/29/16 Doxycycline Hyclate 100 mg PO BID #14 capsule 04/09/18 Cephalexin Monohydrate [Keflex 500 mg Capsule] 500 mg PO Q6H 7 Days #28 capsule 07/30/18 Levetiracetam [Keppra] 500 mg PO BID #20 tablet 04/14/19 Levetiracetam [Keppra 500 mg Tablet] 500 mg PO Q12 #60 tablet 07/07/19 Allergies/Adverse Reactions: No Known Allergies Allergy (Verified 08/24/19 07:22) Review of Systems All systems: reviewed and no additional remarkable complaints except as stated - All systems were reviewed and were negative except as noted in the HPI Physical Exam Vital Signs: Temp Pulse Resp BP Pulse Ox 97.7 F 90 22 H 131/100 H 98 10/19/19 22:42 10/19/19 22:42 10/20/19 05:01 10/20/19 05:01 10/20/19 05:01 Intake & Output 10/18/19 10/19/19 10/20/19 06:59 06:59 06:59 Intake Total 1999 Balance 1999 Weight 81.4 kg General appearance: PRESENT: cooperative, disheveled, mild distress Head exam: PRESENT: atraumatic, normocephalic Eye exam: PRESENT: EOMI, PERRLA. ABSENT: conjunctival injection, nystagmus, scleral icterus Ear exam: PRESENT: normal external ear exam Mouth exam: PRESENT: dry mucosa, neck supple Teeth exam: PRESENT: poor dentation Throat exam: ABSENT: post pharyngeal erythema Neck exam: PRESENT: JVD. ABSENT: carotid bruit, full ROM, lymphadenopathy, meningismus, tenderness, thyromegaly Respiratory exam: PRESENT: clear to auscultation miguel, symmetrical, unlabored. ABSENT: accessory muscle use, chest wall tenderness, crackles, prolonged expiratory phas, rhonchi, tachypnea, wheezes Cardiovascular exam: PRESENT: RRR, +S1, +S2 Pulses: PRESENT: normal carotid pulses Vascular exam: PRESENT: normal capillary refill GI/Abdominal exam: PRESENT: normal bowel sounds, soft, tenderness - Midepigast gabo. ABSENT: distended, guarding, rebound Musculoskeletal exam: PRESENT: normal inspection. ABSENT: deformity Neurological exam: PRESENT: alert, awake, oriented to person, oriented to place, oriented to situation, CN II-XII grossly intact. ABSENT: motor sensory deficit Psychiatric exam: PRESENT: flat affect Skin exam: PRESENT: dry, warm Results Laboratory Results: 10/19/19 22:27 10/19/19 22:27 10/19/19 10/19/19 10/20/19 22:27 22:27 02:43 WBC 9.4 RBC 4.72 Hgb 17.2 H Hct 48.1 MCV 102 H MCH 36.5 H MCHC 35.8 RDW 14.8 H Plt Count 218 Seg Neutrophils % 72.5 Sodium 134.3 L Potassium 4.3 Chloride 103 Carbon Dioxide 19 L Anion Gap 12 BUN 16 Creatinine 0.87 Est GFR ( Amer) > 60 Glucose 115 H Calcium 9.1 Total Bilirubin 0.6 AST 166 H Alkaline Phosphatase 120 Total Protein 8.2 Albumin 4.4 Lipase 1271.0 H Urine Color YELLOW Urine Appearance CLEAR Urine pH 5.0 Ur Specific [place] 1.021 Urine Protein 30 H Urine Glucose (UA) NEGATIVE Urine Ketones NEGATIVE Urine Blood NEGATIVE Urine Nitrite NEGATIVE Ur Leukocyte Esterase NEGATIVE Urine RBC (Auto) 0 Impressions: Abdomen Ultrasound 10/19/19 22:47 IMPRESSION: Small amount of gallbladder sludge, with no sonographic evidence of cholecystitis. Mildly enlarged, fatty liver. copyright 2010 [employer]- All Rights Reserved Assessment and Plan - Diagnosis (1) Acute alcoholic pancreatitis Qualifiers: Acute pancreatitis complication: no infection or necrosis Qualified Code(s): K85.20 - Alcohol induced acute pancreatitis without necrosis or infection Is this a current diagnosis for this admission?: Yes Plan: N.p.o. LR at 200 an hour. Will monitor electrolytes. Antiemetics. PRN morphine. (2) Alcohol abuse Is this a current diagnosis for this admission?: Yes Plan: He is acutely intoxicated now, but we are monitoring him for signs of withdrawal. PRN diazepam. He said his last drink was yesterday afternoon but then he said he cannot go more than about half a day without a drink before he starts to have tremulousness. He does not have any tremulousness at this time, and his alcohol level was 191. He apparently has had withdrawal seizures before, and I do not know what his blood alcohol level threshold is before he would start seizing. (3) Alcohol intoxication Qualifiers: Complication of substance-induced condition: uncomplicated Qualified Code(s): F10.920 - Alcohol use, unspecified with intoxication, uncomplicated Is this a current diagnosis for this admission?: Yes Plan: As previously noted - Time Time Spent with patient: 35 or more minutes - Inpatient Certification Based on my medical assessment, after consideration of the patient's comorbidities, presenting symptoms, or acuity I expect that the services needed warrant INPATIENT care.: Yes I certify that my determination is in accordance with my understanding of Medicare's requirements for reasonable and necessary INPATIENT services [42 CFR 412.3e].: Yes Medical Necessity: Significant Comorbidiites Make Outpatient Treatment Too Risky, Need Close Monitoring Due to Risk of Patient Decompensation, Need For IV Fluids, Need For Continuous Telemetry Monitoring, Risk of Complication if Not Cared For in Hospital
[2019-10-20] MEDS: ONDANSETRON HCL INJ/PF 4 MG/2 ML SDV IV PRN ×2 (06:26→10:55)
[2019-10-20] MEDS: HEPARIN SOD (PORCINE) 5,000 UNIT/ML 1 ML VIAL SUBCUT SCH ×3 (06:30→21:11)
[2019-10-20] MEDS ORDERED: KETOROLAC TROMETHAMINE INJ/PF 30 MG/1 ML SDV IV PRN (08:31)
[2019-10-20] MEDS ORDERED: MAG HYDROX/AL HYDROX/SIMETH SUSP 30 ML UDCUP PO PRN (08:35)
[2019-10-20] MEDS ORDERED: HYDROMORPHONE HCL INJ/PF 2 MG/ML AMPULE IV PRN (08:36)
[2019-10-20] MEDS ORDERED: LORAZEPAM INJ 2 MG/1 ML VIAL IV PRN ×4 (08:38→13:08)
[2019-10-20 09:51] LABS: CHOLESTEROL 269.79 mg/dL (0-200)
[2019-10-20] MEDS: FAMOTIDINE 20 MG TABLET PO SCH ×2 (09:55→21:12)
[2019-10-20 10:01] LABS: DIRECT LDL 33 mg/dL (<100)
[2019-10-20 10:17] LABS: TRIGLYCERIDES 1886 mg/dL (<150)
[2019-10-20] MEDS ORDERED: DEXTROSE 50%-WATER 25 GM/50 ML DISP.SYRIN IV PRN ×2 (13:11)
[2019-10-20] MEDS ORDERED: DEXTROSE 40% GEL 15 GM TUBE PO PRN ×2 (13:11)
[2019-10-20] MEDS ORDERED: GLUCAGON,HUMAN RECOMB 1 MG INJ IM PRN (13:11)
[2019-10-20] MEDS ORDERED: DEXTROSE 5%-LACTATED RINGERS 1,000 ML with POTASSIUM CHLORIDE 20 MEQ IV PRN ×2 (13:14)
--- NOTE | 2019-10-20 13:22 | Progress Note ---
Provider Note Provider Note: Patient writhing in pain today. Has chronic alcoholism and history of withdrawals including withdrawal seizures according to patient. States that his pancreatitis is caused by alcohol as well as hypertriglyceridemia. He will be placed on CIWA protocol with as needed Ativan as per CIWA. Standing Valium IV 5 mg 3 times daily. Will be started on insulin drip and sent to the IMCU for every hour Accu-Cheks and monitor BMP for potassium repletion's. Placed on D5 LR with potassium supplements. Will measure triglyceride levels every 12 hours.
[2019-10-20] MEDS ORDERED: NORMAL SALINE 100 ML with INSULIN REGULAR, HUMAN 100 UNIT IV PRN ×2 (14:00)
[2019-10-20] MEDS: DIAZEPAM INJ 10 MG/2 ML DISP.SYRIN IV SCH ×2 (14:41→21:12)
[2019-10-20] MEDS: HYDROMORPHONE HCL INJ/PF 2 MG/ML AMPULE IV PRN ×3 (14:58→23:07)
[2019-10-20] MEDS: POTASSI CL 20 MEQ/D5LR 1L 20 MEQ/1,000 ML RTUINJ IV PRN ×2 (16:25→21:15)
[2019-10-20] MEDS ORDERED: NORMAL SALINE 1000 ML 1,000 ML with POTASSIUM CHLORIDE 20 MEQ, MAGNESIUM SULFATE 8 MEQ,... IV SCH ×5 (18:00)
[2019-10-20] MEDS ORDERED: DIAZEPAM 5 MG TABLET PO SCH (18:00)
[2019-10-20 18:41] LABS: ANION GAP 7 (5-19); BLOOD UREA NITROGEN 9 mg/dL (7-20); CALCIUM 8.5 mg/dL (8.4-10.2); CARBON DIOXIDE 21 mmol/L (22-30); CHLORIDE 104 mmol/L (98-107); GLUCOSE 128 mg/dL (75-110)
[2019-10-21] MEDS: ONDANSETRON HCL INJ/PF 4 MG/2 ML SDV IV PRN (02:52)
[2019-10-21] MEDS: POTASSI CL 20 MEQ/D5LR 1L 20 MEQ/1,000 ML RTUINJ IV PRN ×3 (02:52→14:34)
[2019-10-21] MEDS: HYDROMORPHONE HCL INJ/PF 2 MG/ML AMPULE IV PRN ×5 (02:59→20:50)
[2019-10-21] MEDS: HEPARIN SOD (PORCINE) 5,000 UNIT/ML 1 ML VIAL SUBCUT SCH ×3 (05:50→22:05)
[2019-10-21] MEDS: DIAZEPAM INJ 10 MG/2 ML DISP.SYRIN IV SCH ×3 (05:50→22:34)
[2019-10-21 06:55] LABS: HEMATOCRIT 42.3 % (37.9-51.0); HEMOGLOBIN 14.8 g/dL (13.5-17.0); MEAN CORPUSCULAR HEMOGLOBIN 35.9 pg (27.0-33.4); MEAN CORPUSCULAR HGB CONC 34.9 g/dL (32.0-36.0); MEAN CORPUSCULAR VOLUME 103 fl (80-97); PLATELET COUNT 112 10^3/uL (150-450); RED BLOOD COUNT 4.12 10^6/uL (4.35-5.55); RED CELL DISTRIBUTION WIDTH 14.7 % (11.5-14.0); WHITE BLOOD COUNT 12.5 10^3/uL (4.0-10.5)
[2019-10-21 06:59] LABS: ALBUMIN 2.9 g/dL (3.5-5.0); ALKALINE PHOSPHATASE 77 U/L (38-126); ANION GAP 5 (5-19); ASPARTATE AMINO TRANSFERASE 80 U/L (17-59); BILIRUBIN,TOTAL 0.9 mg/dL (0.2-1.3); BLOOD UREA NITROGEN 4 mg/dL (7-20); CALCIUM 8.4 mg/dL (8.4-10.2); CARBON DIOXIDE 24 mmol/L (22-30); CHLORIDE 102 mmol/L (98-107); GLUCOSE 102 mg/dL (75-110); PHOSPHORUS 2.1 mg/dL (2.5-4.5); POTASSIUM 3.7 mmol/L (3.6-5.0); TOTAL PROTEIN 5.9 g/dL (6.3-8.2); TRIGLYCERIDES 432 mg/dL (<150)
[2019-10-21] MEDS ORDERED: ACETAMINOPHEN 325 MG TABLET PO PRN (09:31)
[2019-10-21] MEDS: FENOFIBRATE NANOCRYSTALLIZED 145 MG TABLET PO SCH (09:44)
[2019-10-21] MEDS: FAMOTIDINE 20 MG TABLET PO SCH ×2 (09:44→22:34)
[2019-10-21] MEDS ORDERED: NORMAL SALINE 1000 ML 1,000 ML IV ONE (09:45)
--- NOTE | 2019-10-21 13:21 | EKG REPORT ---
SEVERITY:- OTHERWISE NORMAL ECG - SINUS TACHYCARDIA : Confirmed by: Nader Thurston MD 21-Oct-2019 13:20:32
[2019-10-21] MEDS ORDERED: INSULIN REG, HUMAN 100 UNIT/ML 3 ML VIAL (PYX) IV ONE (13:30)
[2019-10-21 15:31] LABS: INTERNATIONAL RATION (INR) 1.07; PARTIAL THROMBOPLASTIN TIME 28.2 SEC (23.5-35.8)
[2019-10-21 15:43] LABS: ALBUMIN 2.9 g/dL (3.5-5.0); ALKALINE PHOSPHATASE 65 U/L (38-126); ASPARTATE AMINO TRANSFERASE 69 U/L (17-59); BILIRUBIN,DIRECT 0.2 mg/dL (0.0-0.4); BLOOD UREA NITROGEN 2 mg/dL (7-20); CALCIUM 8.3 mg/dL (8.4-10.2); GLUCOSE 81 mg/dL (75-110); POTASSIUM 3.9 mmol/L (3.6-5.0); TOTAL PROTEIN 5.8 g/dL (6.3-8.2); TRIGLYCERIDES 303 mg/dL (<150)
[2019-10-21 15:48] LABS: CARBON DIOXIDE 26 mmol/L (22-30); CHLORIDE 99 mmol/L (98-107)
[2019-10-21 15:55] LABS: ANION GAP 4 (5-19)
--- NOTE | 2019-10-21 16:38 | PDOC PROGRESS REPORT ---
Subjective Progress Note for:: 10/21/19 Subjective:: Patient's has significant abdominal pain which is diffuse but mostly in epigastric and periumbilical region. States that the pain gets as bad as a 10/10 but at the time of my encounter, it was 7/10. Patient has been noted to be tachycardic on telemetry with heart rates at 150 at the time of my encounter. Informed by nurse that patient's heart rate jumped to the 170 when he got up and moved around. Patient denies any shortness of breath or anxiety. He admits to some sweats but does not seem to be in overt EtOH withdrawal at the time. Reason For Visit: ACUTE ALCOHOLIC PANCREATITIS Physical Exam Vital Signs: Temp Pulse Resp BP Pulse Ox 98.3 F 107 H 20 139/95 H 97 10/21/19 07:57 10/21/19 14:00 10/21/19 07:57 10/21/19 07:57 10/21/19 07:57 Intake & Output 10/20/19 10/21/19 10/22/19 06:59 06:59 06:59 Intake Total 1999 3897 3045 Output Total 1150 200 Balance 1999 8900 2845 Weight 81.4 kg 89.8 kg General appearance: PRESENT: no acute distress, cooperative Mouth exam: PRESENT: neck supple Neck exam: ABSENT: JVD Respiratory exam: PRESENT: symmetrical, unlabored. ABSENT: tachypnea, wheezes Cardiovascular exam: PRESENT: +S1, +S2, tachycardia. ABSENT: irregular rhythm GI/Abdominal exam: PRESENT: distended, soft, tenderness. ABSENT: firm, guarding, rebound, rigid Neurological exam: PRESENT: alert, awake, oriented to person, oriented to place, oriented to time, other - Non-tremulous Results Laboratory Results: 10/21/19 06:18 10/21/19 14:47 10/20/19 10/21/19 10/21/19 18:06 06:18 06:18 WBC 12.5 H RBC 4.12 L Hgb 14.8 D Hct 42.3 MCV 103 H MCH 35.9 H MCHC 34.9 RDW 14.7 H Plt Count 112 L Sodium 131.6 L 131.3 L Potassium 4.0 3.7 Chloride 104 102 Carbon Dioxide 21 L 24 Anion Gap 7 5 BUN 9 4 L Creatinine 0.67 0.63 Est GFR ( Amer) > 60 > 60 Glucose 128 H 102 Calcium 8.5 8.4 Phosphorus 2.1 L Magnesium 1.6 Total Bilirubin 0.9 AST 80 H Alkaline Phosphatase 77 Total Protein 5.9 L Albumin 2.9 L Triglycerides 432 H Lipase 1439.8 H 10/21/19 14:47 WBC RBC Hgb Hct MCV MCH MCHC RDW Plt Count Sodium 129.3 L Potassium 3.9 Chloride 99 Carbon Dioxide 26 Anion Gap 4 L BUN 2 L Creatinine 0.63 Est GFR ( Amer) > 60 Glucose 81 Calcium 8.3 L Phosphorus Magnesium Total Bilirubin 1.0 AST 69 H Alkaline Phosphatase 65 Total Protein 5.8 L Albumin 2.9 L Triglycerides 303 H Lipase Impressions: Abdomen Ultrasound 10/19/19 22:47 IMPRESSION: Small amount of gallbladder sludge, with no sonographic evidence of cholecystitis. Mildly enlarged, fatty liver. copyright 2010 [employer]- All Rights Reserved Assessment and Plan - Diagnosis (1) Acute alcoholic pancreatitis Qualifiers: Acute pancreatitis complication: no infection or necrosis Qualified Code(s): K85.20 - Alcohol induced acute pancreatitis without necrosis or infection Is this a current diagnosis for this admission?: Yes Plan: Likely triggered by alcohol as well as hypertriglyceridemia induced. Continue IV fluids with lactated Ringer's. We will put fluids down to 150 cc/h. Maintain n.p.o. for now. Will gradually try to reintroduce liquid diet. Ab doe still seems quite tender. No peritoneal signs noted. CBC does show leukocytosis today. Corrected calcium is normal. Continue to monitor metabolic panel. Treatment as below for hypertriglyceridemia. Pain control with IV Dilaudid. Encourage patient to try to alternate intermittent periods with Tylenol. (2) Hypertriglyceridemia without hypercholesterolemia Is this a current diagnosis for this admission?: Yes Plan: Triglycerides is 1880. This likely contributed to his acute pancreatitis flare. I have treated with insulin drip. Today, his triglycerides is down to 300s. Will start on TriCor and discontinue insulin drip. Continue to monitor triglyceride level. (3) Alcohol abuse Is this a current diagnosis for this admission?: Yes Plan: Patient is a heavy drinker and has prior history of alcohol withdrawals including seizures. He has declined inpatient rehab. Currently at high risk for withdrawing. Will maintain patient on standing Valium every 12 hours IV. On assessment, he only seems to be mild withdrawal at this point. Only mild t remors noted. Most recent CIWA score this afternoon as per documentation is 5. We will maintain on as needed IV Ativan as needed per CIWA protocol scale. We will also give some IV thiamine and folic acid. (4) Alcohol intoxication Qualifiers: Complication of substance-induced condition: uncomplicated Qualified Code(s): F10.920 - Alcohol use, unspecified with intoxication, uncomplicated Is this a current diagnosis for this admission?: Yes Plan: Presented with acute intoxication with elevated blood alcohol level. Currently he is sober. (5) Sinus tachycardia Is this a current diagnosis for this admission?: Yes Plan: Significantly tachycardic this morning with heart rate in the 130s to 150s. EKG showing sinus tachycardia. Seems to have responded somewhat to 1 L normal saline bolus. We will continue to monitor on telemetry. If heart rate persist very high, will proceed with a CT of the abdomen pelvis to look for any new complications of patient's pancreatitis. (6) Hepatic steatosis Is this a current diagnosis for this admission?: Yes Plan: Alcoholic fatty liver disease noted on ultrasound. Goal of therapy is alcohol abstinence. - Time Time Spent with patient: 15-24 minutes
[2019-10-21] MEDS: PHOSPHORUS #1 250 MG TABLET PO SCH (16:52)
[2019-10-21] MEDS: RINGERS SOLUTION,LACTATED 1,000 ML IV PRN ×2 (17:06→20:45)
[2019-10-21] MEDS ORDERED: METOPROLOL TARTRATE PF/INJ 5 MG/5 ML SDV IV PRN (18:25)
[2019-10-21] MEDS: PHARMACY COMMUNICATION ORDER MC SCH (19:26)
[2019-10-21] MEDS: THIAMINE HCL 100 MG, FOLIC ACID 1 MG in NORMAL SALINE 250 ML IV SCH (22:20)
[2019-10-22] MEDS: HYDROMORPHONE HCL INJ/PF 2 MG/ML AMPULE IV PRN ×6 (00:51→22:19)
[2019-10-22] MEDS: HEPARIN SOD (PORCINE) 5,000 UNIT/ML 1 ML VIAL SUBCUT SCH (05:00)
[2019-10-22] MEDS: RINGERS SOLUTION,LACTATED 1,000 ML IV PRN (05:02)
[2019-10-22 07:04] LABS: HEMATOCRIT 37.8 % (37.9-51.0); HEMOGLOBIN 13.1 g/dL (13.5-17.0); MEAN CORPUSCULAR HEMOGLOBIN 35.8 pg (27.0-33.4); MEAN CORPUSCULAR HGB CONC 34.7 g/dL (32.0-36.0); MEAN CORPUSCULAR VOLUME 103 fl (80-97); RED BLOOD COUNT 3.67 10^6/uL (4.35-5.55); RED CELL DISTRIBUTION WIDTH 14.3 % (11.5-14.0)
[2019-10-22 07:16] LABS: ALBUMIN 2.8 g/dL (3.5-5.0); ALKALINE PHOSPHATASE 76 U/L (38-126); ANION GAP 8 (5-19); ASPARTATE AMINO TRANSFERASE 48 U/L (17-59); BILIRUBIN,DIRECT 0.1 mg/dL (0.0-0.4); BILIRUBIN,TOTAL 1.1 mg/dL (0.2-1.3); BLOOD UREA NITROGEN 4 mg/dL (7-20); CALCIUM 8.4 mg/dL (8.4-10.2); CARBON DIOXIDE 27 mmol/L (22-30); CHLORIDE 94 mmol/L (98-107); GLUCOSE 86 mg/dL (75-110); PHOSPHORUS 2.8 mg/dL (2.5-4.5); POTASSIUM 3.4 mmol/L (3.6-5.0); TOTAL PROTEIN 5.6 g/dL (6.3-8.2); TRIGLYCERIDES 301 mg/dL (<150)
[2019-10-22 07:27] LABS: PLATELET COUNT 78 10^3/uL (150-450)
[2019-10-22] MEDS ORDERED: RINGERS SOLUTION,LACTATED 1,000 ML IV PRN (07:39)
[2019-10-22] MEDS: PHOSPHORUS #1 250 MG TABLET PO SCH (08:19)
[2019-10-22] MEDS: MAGNESIUM SULFATE/D5W 1 GM/100 ML RTUPB IV SCH ×2 (08:22→09:35)
[2019-10-22] MEDS ORDERED: POTASSIUM CHLORIDE 10 MEQ TABLET.ER PO ONE (08:30)
[2019-10-22] MEDS: FAMOTIDINE 20 MG TABLET PO SCH ×2 (10:27→22:20)
[2019-10-22] MEDS: DIAZEPAM INJ 10 MG/2 ML DISP.SYRIN IV SCH ×2 (10:27→22:20)
[2019-10-22] MEDS: FENOFIBRATE NANOCRYSTALLIZED 145 MG TABLET PO SCH (10:27)
--- NOTE | 2019-10-22 14:17 | PDOC PROGRESS REPORT ---
Subjective Progress Note for:: 10/22/19 Subjective:: Patient states that he feels better in terms of his abdominal pain. He still feels significantly distended in his abdomen. Able to tolerate liquid diet but did have some pain after eating. States he was not tender like he was before. Noticed his remarkable improvement. However he still remains very tachycardic this afternoon. Reason For Visit: ACUTE ALCOHOLIC PANCREATITIS Physical Exam Vital Signs: Temp Pulse Resp BP Pulse Ox 98.7 F 121 H 16 137/90 H 93 10/22/19 11:41 10/22/19 11:41 10/22/19 11:41 10/22/19 11:41 10/22/19 11:41 Intake & Output 10/21/19 10/22/19 10/23/19 06:59 06:59 06:59 Intake Total 3897 5767.2 1824 Output Total 1150 1900 100 Balance 2747 3867.2 1724 Weight 89.8 kg 92.8 kg General appearance: PRESENT: no acute distress, cooperative Neck exam: ABSENT: JVD Respiratory exam: PRESENT: clear to auscultation miguel, unlabored. ABSENT: tachypnea, wheezes Cardiovascular exam: PRESENT: +S1, +S2, tachycardia. ABSENT: irregular rhythm GI/Abdominal exam: PRESENT: distended, normal bowel sounds, soft, tenderness. ABSENT: firm, guarding, rebound, rigid Neurological exam: PRESENT: alert, awake, oriented to person, oriented to place, oriented to time, oriented to situation Results Laboratory Results: 10/22/19 06:17 10/22/19 06:17 10/21/19 10/22/19 10/22/19 14:47 06:17 06:17 WBC 10.0 RBC 3.67 L Hgb 13.1 L Hct 37.8 L MCV 103 H MCH 35.8 H MCHC 34.7 RDW 14.3 H Plt Count 78 L Sodium 129.3 L 128.6 L Potassium 3.9 3.4 L Chloride 99 94 L Carbon Dioxide 26 27 Anion Gap 4 L 8 BUN 2 L 4 L Creatinine 0.63 0.70 Est GFR ( Amer) > 60 > 60 Glucose 81 86 Calcium 8.3 L 8.4 Phosphorus 2.8 Magnesium 1.4 L Total Bilirubin 1.0 1.1 AST 69 H 48 Alkaline Phosphatase 65 76 Total Protein 5.8 L 5.6 L Albumin 2.9 L 2.8 L Triglycerides 303 H 301 H Lipase 429.0 H Impressions: Abdomen Ultrasound 10/19/19 22:47 IMPRESSION: Small amount of gallbladder sludge, with no sonographic evidence of cholecystitis. Mildly enlarged, fatty liver. copyright 2010 [employer]- All Rights Reserved Assessment and Plan - Diagnosis (1) Acute alcoholic pancreatitis Qualifiers: Acute pancreatitis complication: no infection or necrosis Qualified Code(s): K85.20 - Alcohol induced acute pancreatitis without necrosis or infection Is this a current diagnosis for this admission?: Yes Plan: Likely triggered by alcohol as well as hypertriglyceridemia induced. CBC shows resolution of leukocytosis. Corrected calcium is normal. Continue to monitor metabolic panel. He is able to tolerate liquid diet at this point but still experiences some pain after eating. Patient is still significantly tachycardic and as such I will go ahead and get a CT abdomen/pelvis to evaluate for any complications to evaluate abdominal distention which is likely from third spacing from acute pancreatitis. Reduce lactated Ringer's IV rate to 70 cc/h given abdominal distention. Encourage p.o. intake. Pain control with IV Dilaudid. (2) Hypertriglyceridemia without hypercholesterolemia Is this a current diagnosis for this admission?: Yes Plan: Triglycerides is 1880 on admission and initially treated with insulin drip. Down to 300s. Continue TriCor. (3) Alcohol abuse Is this a current diagnosis for this admission?: Yes Plan: Patient is a heavy drinker and has prior history of alcohol withdrawals including seizures. He has declined inpatient rehab. Currently at high risk for withdrawing. Will maintain patient on standing Valium every 12 hours IV. On assessment, he only seems to be mild withdrawal at this point. Only mild tremors noted. Has had very low CIWA scores. I will gradually wean off his diazepam. We will maintain on as needed IV Ativan as needed per CIWA protocol scale. We will also give some IV thiamine and folic acid. (4) Alcohol intoxication Qualifiers: Complication of substance-induced condition: uncomplicated Qualified Code(s): F10.920 - Alcohol use, unspecified with intoxication, uncomplicated Is this a current diagnosis for this admission?: Yes Plan: Resolved (5) Sinus tachycardia Is this a current diagnosis for this admission?: Yes Plan: Tachycardia seemed improved earlier this morning as he was in the 110s. However, he is back into the 120s this afternoon. Check CT abdomen/pelvis. (6) Hepatic steatosis Is this a current diagnosis for this admission?: Yes Plan: Alcoholic fatty liver disease noted on ultrasound. Goal of therapy is alcohol abstinence. - Time Time Spent with patient: 15-24 minutes Anticipated discharge: Home Within: within 48 hours
[2019-10-22] MEDS: PHARMACY COMMUNICATION ORDER MC SCH (18:25)
--- NOTE | 2019-10-22 18:42 | RADIOLOGY REPORT (SQ) ---
EXAM DESCRIPTION: CT ABD/PELVIS WITH IV ORAL IMAGES COMPLETED DATE/TIME: 10/22/2019 4:53 pm REASON FOR STUDY: abdominal pain/ distension. pancreatitis tachycardia. COMPARISON: CT abdomen and pelvis, 10/21/2015. Abdominal ultrasound, 10/19/2019. TECHNIQUE: CT scan of the abdomen and pelvis performed using helical scanning technique with dynamic intravenous contrast injection. No oral contrast. Images reviewed with lung, soft tissue, and bone windows. Reconstructed coronal and sagittal MPR images reviewed. Delayed images for evaluation of the urinary system also acquired. All images stored on PACS. All CT scanners at this facility use dose modulation, iterative reconstruction, and/or weight based d osing when appropriate to reduce radiation dose to as low as reasonably achievable (ALARA). [facility]: Dose Right [facility]: CareDose [facility]: Dose Right [facility]: Teradose 4D [facility]: [employer] CONTRAST TYPE AND DOSE: contrast/concentration: Isovue 350.00 mmol/ml; Total Contrast Delivered: 100 .0 ml; Total Saline Delivered: 72.0 ml RENAL FUNCTION: GFR > 60. RADIATION DOSE: CT Rad equipment meets quality standard of care and radiation dose reduction techniq ues were employed. CTDIvol: 9.8 - 14.1 mGy. DLP: 1475 mGy-cm.. LIMITATIONS: None. FINDINGS: LOWER CHEST: There are patchy areas of ground-glass attenuation in the right middle lobe, right lower lobe, and left lower lobe and lingula. Focal consolidation at the left lung base. Small bilateral pleural effusions. Heart has normal size with no pericardial effusion. LIVER: The liver has normal size and contour. No focal hepatic mass. Partially occluding thrombus i n the main portal vein. Thrombus extends to the confluence of the superior mesenteric and splenic ve ins. No thrombus in the superior mesenteric vein. Normal opacification of the intraparenchymal port al veins and hepatic veins. SPLEEN: Normal size. No focal lesions. PANCREAS: The pancreas is diffusely enlarged with heterogeneous enhancement, areas of low-density thr oughout the pancreatic parenchyma including the head, body and tail. No pancreatic ductal dilation. Marked surrounding inflammatory change and fluid. A fluid collection is seen adjacent to the tail o f the pancreas extending into the left pericolic gutter. Separate fluid collection adjacent to the d uodenum. GALLBLADDER: No identified stones by CT criteria. No inflammatory changes to suggest cholecystitis. ADRENAL GLANDS: No significant masses or asymmetry. RIGHT KIDNEY AND URETER: No solid masses. No significant calcifications. No hydronephrosis or hyd roureter. LEFT KIDNEY AND URETER: No solid masses. No significant calcifications. No hydronephrosis or hydr oureter. AORTA AND VESSELS: No aneurysm. No dissection. Renal arteries, SMA, celiac without stenosis. RETROPERITONEUM: No retroperitoneal adenopathy, hemorrhage or masses. BOWEL AND PERITONEAL CAVITY: There is a small amount of ascites particularly around the liver, in the upper abdomen, with layering ascites in the pelvis. No pneumoperitoneum. APPENDIX: Normal. PELVIS: Urinary bladder is relatively decompressed. No bladder wall thickening or intraluminal bladd er mass. Prostate has normal size. ABDOMINAL WALL: No masses. No hernias. BONES: No significant or acute findings. OTHER: No other significant finding. IMPRESSION: 1. New partially occlusive portal vein thrombus extends from the esmer hepatis to the portal splenic confluence. 2. Extensive pancreatitis with pancreatic necrosis. 3. Moderate ascites in the upper abdomen and pelvis. No focal drainable abscess. 4. Small bilateral pleural effusions. 5. Patchy areas of ground-glass attenuation in both lungs. Commonly reported imaging features of Cov id-19 pneumonia are present. Other processes such as influenza pneumonia and organizing pneumonia, a s can be seen with drug toxicity and connective tissue disease, can cause a similar imaging pattern. COMMENT: Findings discussed with Lex Tipton RN on 10/22/2019 at 1834 hours. TECHNICAL DOCUMENTATION: JOB ID: [id number] Quality ID # [id number]: Final reports with documentation of one or more dose reduction techniques (e.g., Au tomated exposure control, adjustment of the mA and/or kV according to patient size, use of iterative reconstruction technique) 2010 [employer]- All Rights Reserved Reading location - IP/workstation name: [email or web address]
[2019-10-22] MEDS ORDERED: NICOTINE 14 MG/24 HR PATCH.TD24 TD PRN (19:33)
[2019-10-22] MEDS: FONDAPARINUX SODIUM INJ 7.5 MG/0.6 ML DISP.SYRIN SUBCUT SCH (22:20)
[2019-10-22] MEDS: THIAMINE HCL 100 MG, FOLIC ACID 1 MG in NORMAL SALINE 250 ML IV SCH (22:24)
[2019-10-23] MEDS: HYDROMORPHONE HCL INJ/PF 2 MG/ML AMPULE IV PRN ×6 (02:23→23:42)
[2019-10-23 07:10] LABS: HEMATOCRIT 35.9 % (37.9-51.0); HEMOGLOBIN 12.6 g/dL (13.5-17.0); MEAN CORPUSCULAR HEMOGLOBIN 36.4 pg (27.0-33.4); MEAN CORPUSCULAR HGB CONC 35.1 g/dL (32.0-36.0); MEAN CORPUSCULAR VOLUME 104 fl (80-97); RED BLOOD COUNT 3.47 10^6/uL (4.35-5.55); RED CELL DISTRIBUTION WIDTH 14.4 % (11.5-14.0); WHITE BLOOD COUNT 8.3 10^3/uL (4.0-10.5)
[2019-10-23 07:24] LABS: PLATELET COUNT 80 10^3/uL (150-450)
[2019-10-23 07:27] LABS: ALBUMIN 3.1 g/dL (3.5-5.0); ALKALINE PHOSPHATASE 85 U/L (38-126); ANION GAP 9 (5-19); ASPARTATE AMINO TRANSFERASE 52 U/L (17-59); BILIRUBIN,DIRECT 0.3 mg/dL (0.0-0.4); BILIRUBIN,TOTAL 1.3 mg/dL (0.2-1.3); BLOOD UREA NITROGEN 4 mg/dL (7-20); CALCIUM 8.7 mg/dL (8.4-10.2); CARBON DIOXIDE 28 mmol/L (22-30); CHLORIDE 91 mmol/L (98-107); GLUCOSE 97 mg/dL (75-110); PHOSPHORUS 2.7 mg/dL (2.5-4.5); POTASSIUM 3.2 mmol/L (3.6-5.0); TOTAL PROTEIN 5.9 g/dL (6.3-8.2)
[2019-10-23] MEDS ORDERED: FUROSEMIDE INJ/PF 40 MG/4 ML SDV IV ONE (07:39)
[2019-10-23] MEDS: POTASSIUM CHLORIDE 10 MEQ TABLET.ER PO SCH ×3 (08:05→19:12)
[2019-10-23] MEDS: ALBUMIN HUMAN 12.5 GM/50 ML RTUINJ IV SCH ×3 (09:49→14:37)
[2019-10-23] MEDS: FENOFIBRATE NANOCRYSTALLIZED 145 MG TABLET PO SCH (10:12)
[2019-10-23] MEDS: FAMOTIDINE 20 MG TABLET PO SCH ×2 (10:12→21:29)
[2019-10-23] MEDS: FONDAPARINUX SODIUM INJ 7.5 MG/0.6 ML DISP.SYRIN SUBCUT SCH (10:12)
[2019-10-23] MEDS: DIAZEPAM INJ 10 MG/2 ML DISP.SYRIN IV SCH (10:13)
[2019-10-23] MEDS ORDERED: HYDROMORPHONE HCL INJ/PF 2 MG/ML AMPULE IV PRN (12:10)
--- NOTE | 2019-10-23 12:26 | Progress Note ---
Provider Note Provider Note: I received consult from Dr. Shepard. We discussed patient and I reviewed his chart at length. This is a 33 year old gentleman with a history of substantial alcohol use. He now has portal vein thrombosis in addition to his pancreatitis. His PLT count over the past 3 years has fluctuated between 57 and 425. He curr ently has no evidence of bleeding. He was started on Arixtra. I will change him from Arixtra to Xarelto, as these 2 medications have the same mechanism of action, the same half-life, and the same overall risk profile. However, Xarelto is much less expensive and will be easier for patient to obtain as outpatient. As long as his PLT count remains >50, it should be safe to continue anticoagulation. He will need to be compliant with this medication for at least 6 months. I will be happy to continue to follow him as outpatient to help with this. I will start 15 mg po BID and transition to 20 mg daily after 21 days. I will also check AFP, although no liver masses, I believe this is a good screening test in patients with chronic liver disease. I will also monitor the anemia and consider further work-up if continues. Full notes with exam to follow. Please call me with any questions or concerns.
--- NOTE | 2019-10-23 12:37 | PDOC PROGRESS REPORT ---
Subjective Progress Note for:: 10/23/19 Subjective:: Patient feels better. He has tolerated his diet. His abdominal pain has improved. Overall feels much better. Had a bowel movement yesterday which was loose. Discussed the findings of his CAT scan with him. He would like to go what percentage of his pancreas is necrosed. Reason For Visit: ACUTE ALCOHOLIC PANCREATITIS Physical Exam Vital Signs: Temp Pulse Resp BP Pulse Ox 98.5 F 107 H 21 H 143/86 H 94 10/23/19 07:16 10/23/19 07:16 10/23/19 07:16 10/23/19 07:16 10/23/19 07:16 Intake & Output 10/22/19 10/23/19 10/24/19 06:59 06:59 06:59 Intake Total 5767.2 2260 1285.2 Output Total 1900 1125 Balance 3867.2 1135 1285.2 Weight 92.8 kg 91.5 kg General appearance: PRESENT: no acute distress, cooperative Neck exam: ABSENT: JVD Respiratory exam: PRESENT: clear to auscultation miguel, unlabored. ABSENT: tachypnea, wheezes Cardiovascular exam: PRESENT: +S1, +S2, tachycardia. ABSENT: irregular rhythm GI/Abdominal exam: PRESENT: distended, soft, tenderness. ABSENT: firm, guarding, rebound, rigid Musculoskeletal exam: PRESENT: ambulatory Neurological exam: PRESENT: alert, awake, oriented to person, oriented to place, oriented to time, oriented to situation Results Laboratory Results: 10/23/19 06:26 10/23/19 06:26 10/23/19 10/23/19 06:26 06:26 WBC 8.3 RBC 3.47 L Hgb 12.6 L Hct 35.9 L MCV 104 H MCH 36.4 H MCHC 35.1 RDW 14.4 H Plt Count 80 L Sodium 128.2 L Potassium 3.2 L Chloride 91 L Carbon Dioxide 28 Anion Gap 9 BUN 4 L Creatinine 0.60 Est GFR ( Amer) > 60 Glucose 97 Calcium 8.7 Phosphorus 2.7 Magnesium 2.0 Total Bilirubin 1.3 AST 52 Alkaline Phosphatase 85 Total Protein 5.9 L Albumin 3.1 L Impressions: Abdomen Ultrasound 10/19/19 22:47 IMPRESSION: Small amount of gallbladder sludge, with no sonographic evidence of cholecystitis. Mildly enlarged, fatty liver. copyright 2010 [employer]- All Rights Reserved Abdomen/Pelvis CT 10/22/19 00:00 IMPRESSION: 1. New partially occlusive portal vein thrombus extends from the esmer hepatis to the portal splenic confluence. 2. Extensive pancreatitis with pancreatic necrosis. 3. Moderate ascites in the upper abdomen and pelvis. No focal drainable abscess. 4. Small bilateral pleural effusions. 5. Patchy areas of ground-glass attenuation in both lungs. Commonly reported imaging features of Covid-19 pneumonia are present. Other processes such as influenza pneumonia and organizing pneumonia, as can be seen with drug toxicity and connective tissue disease, can cause a similar imaging pattern. Assessment and Plan - Diagnosis (1) Acute alcoholic pancreatitis Qualifiers: Acute pancreatitis complication: uninfected necrosis Qualified Code(s): K85.21 - Alcohol induced acute pancreatitis with uninfected necrosis Is this a current diagnosis for this admission?: Yes Plan: Likely triggered by alcohol as well as hypertriglyceridemia induced. CBC shows resolution of leukocytosis. Corrected calcium is normal. Continue to monitor metabolic panel. He is able to tolerate liquid diet at this point but still experiences some pain after eating. Patient is still significantly tachycardic and as such I will go ahead and get a CT abdomen/pelvis to evaluate for any complications to evaluate abdominal distention which is likely from third spacing from acute pancreatitis. Reduce lactated Ringer's IV rate to 70 cc/h given abdominal distention. Encourage p.o. intake. Pain control with IV Dilaudid. 10/23/2019 I have reviewed the imaging results from the CT abdomen which shows extensive pancreatitis with pancreatic necrosis but no evidence of infection as well as peripancreatic fluid collections, portal vein thrombosis extending into the superior mesenteric vein and splenic vein. Moderate ascites. However, patient has been able to tolerate full liquid diet yesterday so I will advance him to a soft bland diet today. I will try to increase the intervals and reduced dose of his IV pain meds to see if he tolerates weaning. Discontinue fluids for now given ascites. Encourage p.o. hydration. Have had thorough conversation with patient about abstinence from alcohol and the severity of his disease. (2) Portal vein thrombosis Is this a current diagnosis for this admission?: Yes Plan: Portal vein thrombosis extends into the superior mesenteric and splenic vein. No evidence of bowel infarction noted on CT scan. Likely provoked by acute pancreatitis. Started on Arixtra yesterday. Consulted Dr. Payton who recommends switching to Xarelto. (3) Hypertriglyceridemia without hypercholesterolemia Is this a current diagnosis for this admission?: Yes Plan: Triglycerides is 1880 on admission and initially treated with insulin drip. Down to 300s. Continue TriCor. (4) Alcohol abuse Is this a current diagnosis for this admission?: Yes Plan: Patient is a heavy drinker and has prior history of alcohol withdrawals including seizures. He has declined inpatient rehab. Presented with alcohol intoxication. Had mild withdrawals during admission but CIWA never went above 10. Continue to wean standing valium. CIWA score this AM is 0. He has received a dose of 5mg valium ut I will go ahead and d/c. Continue CIWA protocol and IV ativan prn for elevated CIWA scores only. Continue thiamine and folic acid. (5) Sinus tachycardia Is this a current diagnosis for this admission?: Yes Plan: Secondary to his acute illness with pancreatitis and SIRS. His tachycardia seems to be improving. We will continue to monitor closely on telemetry. (6) Hepatic steatosis Is this a current diagnosis for this admission?: Yes Plan: Alcoholic fatty liver disease noted on ultrasound. Goal of therapy is alcohol abstinence. PT/PTT adequate. (7) Thrombocytopenia Is this a current diagnosis for this admission?: Yes Plan: Platelet count dropped during this admission. He did receive lots of IV fluids for his pancreatitis and was hemoconcentrated on admission so I suspect this was the cause of his drop and his platelet count is likely closer to baseline at this point. 4T score not all that impressive quite frankly, but still sent HIT antibody and discontinued heparin ppx. I suspect thrombocytopenia secondary to chronic liver disease from alcoholic hepatic steatosis. CT not evident for cirrhotic echotexture. Monitor CBC. F/u HIT antibody. (8) Abdominal distention Is this a current diagnosis for this admission?: Yes Plan: Has moderate ascites secondary to extensive pancreatitis and portal vein thrombosis. I have discontinued IV fluids. I will give him a dose of Lasix iv as well as albumin to avoid intravascular depletion. Monitor BMP. - Time Time Spent with patient: 15-24 minutes Anticipated discharge: Home Within: within 48 hours
[2019-10-23] MEDS: FOLIC ACID 1 MG TABLET PO SCH (13:15)
[2019-10-23] MEDS: THIAMINE HCL 100 MG TABLET PO SCH (13:15)
[2019-10-23 16:18] LABS: ANION GAP 11 (5-19); BLOOD UREA NITROGEN 5 mg/dL (7-20); CALCIUM 8.9 mg/dL (8.4-10.2); CARBON DIOXIDE 30 mmol/L (22-30); CHLORIDE 88 mmol/L (98-107); GLUCOSE 110 mg/dL (75-110); POTASSIUM 3.1 mmol/L (3.6-5.0)
[2019-10-23] MEDS: PHARMACY COMMUNICATION ORDER MC SCH (17:27)
[2019-10-24] MEDS: POTASSIUM CHLORIDE 10 MEQ TABLET.ER PO SCH (01:56)
[2019-10-24] MEDS: HYDROMORPHONE HCL INJ/PF 2 MG/ML AMPULE IV PRN ×2 (05:57→13:39)
[2019-10-24 06:27] LABS: HEMATOCRIT 37.6 % (37.9-51.0); HEMOGLOBIN 13.2 g/dL (13.5-17.0); MEAN CORPUSCULAR HEMOGLOBIN 35.8 pg (27.0-33.4); MEAN CORPUSCULAR VOLUME 102 fl (80-97); PLATELET COUNT 116 10^3/uL (150-450); RED BLOOD COUNT 3.67 10^6/uL (4.35-5.55); RED CELL DISTRIBUTION WIDTH 14.1 % (11.5-14.0); WHITE BLOOD COUNT 8.9 10^3/uL (4.0-10.5)
[2019-10-24 06:37] LABS: ALBUMIN 3.6 g/dL (3.5-5.0); ALKALINE PHOSPHATASE 106 U/L (38-126); ANION GAP 8 (5-19); ASPARTATE AMINO TRANSFERASE 42 U/L (17-59); BILIRUBIN,DIRECT 0.2 mg/dL (0.0-0.4); BILIRUBIN,TOTAL 1.2 mg/dL (0.2-1.3); BLOOD UREA NITROGEN 6 mg/dL (7-20); CALCIUM 9.5 mg/dL (8.4-10.2); CARBON DIOXIDE 30 mmol/L (22-30); CHLORIDE 96 mmol/L (98-107); GLUCOSE 108 mg/dL (75-110); TOTAL PROTEIN 7.3 g/dL (6.3-8.2)
[2019-10-24 06:45] LABS: POTASSIUM 4.3 mmol/L (3.6-5.0)
[2019-10-24] MEDS ORDERED: RIVAROXABAN 15 MG TABLET PO SCH (08:00)
[2019-10-24] MEDS: FENOFIBRATE NANOCRYSTALLIZED 145 MG TABLET PO SCH (09:06)
[2019-10-24] MEDS: THIAMINE HCL 100 MG TABLET PO SCH (09:06)
[2019-10-24] MEDS: FOLIC ACID 1 MG TABLET PO SCH (09:06)
[2019-10-24] MEDS: FAMOTIDINE 20 MG TABLET PO SCH (09:06)
--- NOTE | 2019-10-24 14:29 | PDOC DISCHARGE SUMMARY ---
Impression - Admit/DC Date/PCP Admission Date/Primary Care Provider: 10/20/19 05:47 Discharge Date: 10/24/19 - Discharge Diagnosis (1) Acute alcoholic pancreatitis Is this a current diagnosis for this admission?: Yes (2) Portal vein thrombosis Is this a current diagnosis for this admission?: Yes (3) Hypertriglyceridemia without hypercholesterolemia Is this a current diagnosis for this admission?: Yes (4) Alcohol abuse Is this a current diagnosis for this admission?: Yes (5) Hepatic steatosis Is this a current diagnosis for this admission?: Yes (6) Sinus tachycardia Is this a current diagnosis for this admission?: Yes (7) Thrombocytopenia Is this a current diagnosis for this admission?: Yes (8) Abdominal pain Is this a current diagnosis for this admission?: Yes (9) Abdominal distention Is this a current diagnosis for this admission?: Yes - Additional Information Discharge Diet: Other (Comments) - Soft diet advance slowly Discharge Activity: Activity As Tolerated [facility]: [facility] [NO LOCAL MD] - Prescriptions: Morphine Sulfate [Morphine Ir 15 mg Tablet] 15 mg PO Q12 PRN 3 Days #6 tablet PRN Reason: For Pain Scale 4-5 Fenofibrate Nanocrystallized [Tricor 145 mg Tablet] 145 mg PO DAILY #20 tablet Rivaroxaban [Xarelto 15 mg Tablet] 15 mg PO BIDBS 20 Days #40 tablet Home Medications: Famotidine [Pepcid 20 mg Tablet] 20 mg PO Q12 tablet 10/24/19 Fenofibrate Nanocrystallized [Tricor 145 mg Tablet] 145 mg PO DAILY #20 tablet 10/24/19 Folic Acid [Folvite 1 mg Tablet] 1 mg PO DAILY tablet 10/24/19 Morphine Sulfate [Morphine Ir 15 mg Tablet] 15 mg PO Q12 PRN 3 Days #6 tablet 10/24/19 Nicotine [Nicoderm 14 mg/24 Hr Transdermal Patch] 1 each TD DAILYP PRN patch.td24 10/24/19 Rivaroxaban [Xarelto 15 mg Tablet] 15 mg PO BIDBS 20 Days #40 tablet 10/24/19 Thiamine HCl [Thiamine 100 mg Tablet] 100 mg PO DAILY tablet 10/24/19 History of Present Illiness History of Present Illness: MANISHA DIALLO is a 33 year old male with a history of heavy alcohol consumption who presents with abdominal pain since 2 PM yesterday afternoon. He has experienced some nausea and vomiting with it. He says the pain is in the middle of his abdomen. He describes it as a dull crampy ache. He says the last time he had anything to drink was yesterday afternoon he only had one beer but is blood alcohol level is 191. He has had an episode of pancreatitis before, he says a few years ago. He does not have a doctor and he does not take any medications at home. He said the only time he ever had seizures was when he had severe alcohol withdrawal. He said he cannot go more than about half a day without a drink before he starts to have some tremulousness. Abdominal ultrasound showed some sludge in the gallbladder but no evidence of cholecystitis. Hospital Course Hospital Course: The patient had a fairly unremarkable hospital course. He started n.p.o. with IV fluids. His lipase came down from 1400-429. He still has abdominal pain. It does not seem to be directly related to meals at this time. He is still thrombocytopenic but this seems to be more chronic lately. A portal vein thrombosis was detected by imaging. He was started on Xarelto. Dr. Payton has agreed to see him in the office. He must stay on Xarelto for 6 months minimum. At discharge he was still having occasional abdominal pain and so analgesics were prescribed. Physical Exam Vital Signs: Temp Pulse Resp BP Pulse Ox 98.1 F 83 18 133/96 H 96 10/24/19 11:27 10/24/19 11:27 10/24/19 11:27 10/24/19 11:27 10/24/19 11:27 Intake & Output 10/23/19 10/24/19 10/25/19 06:59 06:59 06:59 Intake Total 2260 2125.2 120 Output Total 1125 Balance 1135 2125.2 120 Weight 91.5 kg 86.7 kg General appearance: PRESENT: cooperative, mild distress, well-developed Head exam: PRESENT: atraumatic, normocephalic Eye exam: PRESENT: conjunctiva pink. ABSENT: scleral icterus Ear exam: PRESENT: normal external ear exam. ABSENT: bleeding, drainage Respiratory exam: PRESENT: clear to auscultation miguel, symmetrical, unlabored. ABSENT: accessory muscle use, prolonged expiratory phas, rales, rhonchi, tachypnea, wheezes Cardiovascular exam: PRESENT: RRR, +S1, +S2. ABSENT: bradycardia, irregular rhythm, tachycardia GI/Abdominal exam: PRESENT: distended - Slightly distended, soft, tenderness - Slightly tender in the epigastrium. ABSENT: guarding Rectal exam: PRESENT: deferred Gentrourinary exam: ABSENT: indwelling catheter Extremities exam: ABSENT: pedal edema Musculoskeletal exam: PRESENT: normal inspection. ABSENT: deformity, dislocation Neurological exam: PRESENT: alert, awake, oriented to person, oriented to place, oriented to time, oriented to situation, CN II-XII grossly intact. ABSENT: altered, motor sensory deficit Psychiatric exam: PRESENT: flat affect. ABSENT: agitated, anxious Focused psych exam: ABSENT: delusional, paranoid, restlessness Skin exam: PRESENT: dry, warm. ABSENT: rash Results Laboratory Results: WBC 8.9 10^3/uL (4.0-10.5) 10/24/19 06:01 RBC 3.67 10^6/uL (4.35-5.55) L 10/24/19 06:01 Hgb 13.2 g/dL (13.5-17.0) L 10/24/19 06:01 Hct 37.6 % (37.9-51.0) L 10/24/19 06:01 MCV 102 fl (80-97) H 10/24/19 06:01 MCH 35.8 pg (27.0-33.4) H 10/24/19 06:01 MCHC 35.0 g/dL (32.0-36.0) 10/24/19 06:01 RDW 14.1 % (11.5-14.0) H 10/24/19 06:01 Plt Count 116 10^3/uL (150-450) L 10/24/19 06:01 Lymph % (Auto) 17.7 % (13-45) 10/19/19 22:27 Love % (Auto) 8.1 % (3-13) 10/19/19 22:27 Eos % (Auto) 0.5 % (0-6) 10/19/19 22:27 Baso % (Auto) 1.2 % (0-2) 10/19/19 22:27 Absolute Neuts (auto) 6.9 10^3/uL (1.7-8.2) 10/19/19 22:27 Absolute Lymphs (auto) 1.7 10^3/uL (0.5-4.7) 10/19/19 22:27 Absolute Monos (auto) 0.8 10^3/uL (0.1-1.4) 10/19/19 22:27 Absolute Eos (auto) 0.1 10^3/uL (0.0-0.6) 10/19/19 22:27 Absolute Basos (auto) 0.1 10^3/uL (0.0-0.2) 10/19/19 22:27 Seg Neutrophils % 72.5 % (42-78) 10/19/19 22: PT 14.0 SEC (11.4-15.4) 10/21/19 14:47 INR 1.07 10/21/19 14:47 APTT 28.2 SEC (23.5-35.8) 10/21/19 14:47 Sodium 134.1 mmol/L (137-145) L 10/24/19 06:01 Potassium 4.3 mmol/L (3.6-5.0) D 10/24/19 06:01 Chloride 96 mmol/L (98-107) L 10/24/19 06:01 Carbon Dioxide 30 mmol/L (22-30) 10/24/19 06:01 Anion Gap 8 (5-19) 10/24/19 06:01 BUN 6 mg/dL (7-20) L 10/24/19 06:01 Creatinine 0.70 mg/dL (0.52-1.25) 10/24/19 06:01 Est GFR ( Amer) > 60 (>60) 10/24/19 06:01 Est GFR (MDRD) Non-Af > 60 (>60) 10/24/19 06:01 Glucose 108 mg/dL (75-110) 10/24/19 06:01 POC Glucose 88 mg/dL (70-110) 10/22/19 05:16 Hemoglobin A1c % 5.1 % (4.7-6.0) 10/21/19 06:18 Calcium 9.5 mg/dL (8.4-10.2) 10/24/19 06:01 Phosphorus 2.7 mg/dL (2.5-4.5) 10/23/19 06:26 Magnesium 2.0 mg/dL (1.6-2.3) 10/23/19 06:26 Total Bilirubin 1.2 mg/dL (0.2-1.3) 10/24/19 06:01 Direct Bilirubin 0.2 mg/dL (0.0-0.4) 10/24/19 06:01 Neonat Total Bilirubin Not Reportable 10/24/19 06:01 Neonat Direct Bilirubin Not Reportable 10/24/19 06:01 Neonat Indirect Bili Not Reportable 10/24/19 06:01 AST 42 U/L (17-59) 10/24/19 06:01 ALT 26 U/L (<50) 10/24/19 06:01 Alkaline Phosphatase 106 U/L (38-126) 10/24/19 06:01 Total Protein 7.3 g/dL (6.3-8.2) 10/24/19 06:01 Albumin 3.6 g/dL (3.5-5.0) 10/24/19 06:01 Triglycerides 301 mg/dL (<150) H 10/22/19 06:17 Cholesterol 269.79 mg/dL (0-200) H 10/19/19 22:27 LDL Cholesterol Direct 33 mg/dL (<100) 10/19/19 22:27 VLDL Cholesterol, Calc UNABLE TO CALCULATE 10/19/19 22:27 HDL Cholesterol 28 mg/dL (>40) L 10/19/19 22:27 Lipase 429.0 U/L (23-300) H 10/22/19 06:17 Urine Color YELLOW 10/20/19 02:43 Urine Appearance CLEAR 10/20/19 02:43 Urine pH 5.0 (5.0-9.0) 10/20/19 02:43 Ur Specific Chunky 1.021 10/20/19 02:43 Urine Protein 30 mg/dL (NEGATIVE) H 10/20/19 02:43 Urine Glucose (UA) NEGATIVE mg/dL (NEGATIVE) 10/20/19 02:43 Urine Ketones NEGATIVE mg/dL (NEGATIVE) 10/20/19 02:43 Urine Blood NEGATIVE (NEGATIVE) 10/20/19 02:43 Urine Nitrite NEGATIVE (NEGATIVE) 10/20/19 02:43 Urine Bilirubin NEGATIVE (NEGATIVE) 10/20/19 02:43 Urine Urobilinogen NEGATIVE mg/dL (<2.0) 10/20/19 02:43 Ur Leukocyte Esterase NEGATIVE (NEGATIVE) 10/20/19 02:43 Urine RBC (Auto) 0 /HPF 10/20/19 02:43 U Hyaline Cast (Auto) 66 /LPF 10/20/19 02:43 Squamous Epi Cells Auto <1 /HPF 10/20/19 02:43 Urine Mucus (Auto) OCC /LPF 10/20/19 02:43 Urine Ascorbic Acid NEGATIVE (NEGATIVE) 10/20/19 02:43 Serum Alcohol 191 mg/dL (NONE DETECTED) 10/19/19 22:27 SARS-CoV-2 (PCR) NEGATIVE (NEGATIVE) 10/23/19 11:25 Impressions: Abdomen Ultrasound 10/19/19 22:47 IMPRESSION: Small amount of gallbladder sludge, with no sonographic evidence of cholecystitis. Mildly enlarged, fatty liver. copyright 2011 [employer]- All Rights Reserved Abdomen/Pelvis CT 10/22/19 00:00 IMPRESSION: 1. New partially occlusive portal vein thrombus extends from the esmer hepatis to the portal splenic confluence. 2. Extensive pancreatitis with pancreatic necrosis. 3. Moderate ascites in the upper abdomen and pelvis. No focal drainable abscess. 4. Small bilateral pleural effusions. 5. Patchy areas of ground-glass attenuation in both lungs. Commonly reported imaging features of Covid-19 pneumonia are present. Other processes such as influenza pneumonia and organizing pneumonia, as can be seen with drug toxicity and connective tissue disease, can cause a similar imaging pattern. Plan Health Concerns: Serious concerns regarding progression to complete pancreatic failure as well as alcoholic cirrhosis. Plan of Treatment: Continue Xarelto for portal vein thrombosis. Continue TriCor for hypertriglyceridemia. Advance diet slowly. 6 tablets of immediate release morphine sulfate 15 mg were prescribed. The patient must use them sparingly. He needs to establish with primary care and he would benefit from a watch band assembler. Dr. Alejandre has agreed to see him as an outpatient for the portal vein thrombosis. Goals: Abstinence from alcohol to allow liver and pancreas recovery Time Spent: Greater than 30 Minutes Stroke Is this a Stroke Patient?: No Acute Heart Failure - Is this a Heart Failure Patient?: No
[2019-10-24 14:35] VITALS: BP 151/98
== END 2019-10-24 15:15 | disposition home or self-care (01) | DRG 438 ==
LOC: ER 22:22 → EH 10-20 05:47 → 4W 10-20 10:27 → 3S 10-20 17:22
PROVIDERS: ADMIT Family Medicine; ATTEND Hospitalist
DX: K85.20 Alcohol induced acute pancreatitis without necrosis or infection (principal); I81 Portal vein thrombosis; R18.8 Other ascites; F10.239 Alcohol dependence with withdrawal, unspecified; F10.220 Alcohol dependence with intoxication, uncomplicated; Y90.6 Blood alcohol level of 120-199 mg/100 ml; D69.6 Thrombocytopenia, unspecified; F17.200 Nicotine dependence, unspecified, uncomplicated; E78.1 Pure hyperglyceridemia; K70.0 Alcoholic fatty liver; Z79.899 Other long term (current) drug therapy; I49.5 Sick sinus syndrome; Z03.818 Encounter for observation for suspected exposure to other biological agents ruled out
CPT/HCPCS: 36415; 74177; 76705; 80048; 80053; 80061; 80307; 81001; 82105; 82962; 83036; 83690; 83735; 84100; 84478; 85025; 85027; 85610; 85730; 86022; 87070; 87635; 93005; 93010; 94799; 96361; 96374; 96375; 96376; 99285; C9803; J0780; J1170; J1200; J1644; J1652; J1815; J1885; J1940; J2270; J2405; J3360; J3411; J3475; J3490; J7030; J7050; J7120; P9047

== ENCOUNTER 2020-01-12 05:42 | Emergency (ER) | payer SELFPAY ==
[2020-01-12] MEDS ORDERED: ONDANSETRON 4 MG TAB.RAPDIS PO ONE (06:44)
[2020-01-12 09:54] LABS: ABSOLUTE BASOPHILS # (AUTO) 0.1 10^3/uL (0.0-0.2); ABSOLUTE LYMPHOCYTES (AUTO) 1.1 10^3/uL (0.5-4.7); ABSOLUTE MONOCYTES (AUTO) 0.7 10^3/uL (0.1-1.4); ABSOLUTE NEUT (AUTO) 6.2 10^3/uL (1.7-8.2); BASOPHILS % (AUTO) 0.7 % (0-2); EOSINOPHILS % (AUTO) 0.2 % (0-6); HEMATOCRIT 45.6 % (37.9-51.0); MEAN CORPUSCULAR HEMOGLOBIN 32.3 pg (27.0-33.4); MEAN CORPUSCULAR HGB CONC 35.2 g/dL (32.0-36.0); MEAN CORPUSCULAR VOLUME 92 fl (80-97); MONOCYTES % (AUTO) 8.6 % (3-13); RED BLOOD COUNT 4.97 10^6/uL (4.35-5.55); RED CELL DISTRIBUTION WIDTH 14.8 % (11.5-14.0); SEGMENTED NEUTROPHILS % (AUTO) 76.5 % (42-78); TOTAL CELLS COUNTED % (AUTO) 100 %
[2020-01-12 10:06] LABS: ALBUMIN 4.7 g/dL (3.5-5.0); ALKALINE PHOSPHATASE 128 U/L (38-126); ANION GAP 19 (5-19); ASPARTATE AMINO TRANSFERASE 74 U/L (17-59); BILIRUBIN,DIRECT 0.3 mg/dL (0.0-0.4); BILIRUBIN,TOTAL 0.9 mg/dL (0.2-1.3); BLOOD UREA NITROGEN 11 mg/dL (7-20); CALCIUM 9.1 mg/dL (8.4-10.2); CARBON DIOXIDE 19 mmol/L (22-30); CHLORIDE 100 mmol/L (98-107); GLUCOSE 96 mg/dL (75-110); POTASSIUM 4.2 mmol/L (3.6-5.0); TOTAL PROTEIN 8.1 g/dL (6.3-8.2)
[2020-01-12 10:17] LABS: PLATELET COUNT 98 10^3/uL (150-450)
[2020-01-12] MEDS ORDERED: LORAZEPAM 0.5 MG TABLET PO ONE ×2 (10:18→12:37)
[2020-01-12] MEDS ORDERED: METOCLOPRAMIDE HCL ORAL SOLN 10 MG/10 ML UDCUP PO ONE (10:18)
[2020-01-12] MEDS ORDERED: MAG HYDROX/AL HYDROX/SIMETH SUSP 30 ML UDCUP PO ONE (10:18)
[2020-01-12] MEDS ORDERED: LIDOCAINE 2% VISCOUS SOLN 15 ML UDCUP PO ONE (10:18)
--- NOTE | 2020-01-12 12:13 | RADIOLOGY REPORT (SQ) ---
EXAM DESCRIPTION: CT ABD/PELVIS NO ORAL OR IV IMAGES COMPLETED DATE/TIME: 01/12/2020 11:29 am REASON FOR STUDY: abd pain COMPARISON: None. TECHNIQUE: CT scan of the abdomen and pelvis performed without intravenous or oral contrast. Images reviewed with lung, soft tissue, and bone windows. Reconstructed coronal and sagittal MPR images revi ewed. All images stored on PACS. All CT scanners at this facility use dose modulation, iterative reconstruction, and/or weight based d osing when appropriate to reduce radiation dose to as low as reasonably achievable (ALARA). [facility]: Dose Right [facility]: CareDose [facility]: Dose Right [facility]: Teradose 4D [facility]: Smart [employer] RADIATION DOSE: CT Rad equipment meets quality standard of care and radiation dose reduction techniq ues were employed. CTDIvol: 7.2 mGy. DLP: 405 mGy-cm.mGy. LIMITATIONS: None. FINDINGS: LOWER CHEST: No significant findings. No nodules or infiltrates. NON-CONTRASTED LIVER, SPLEEN, ADRENALS: The liver appears to be slightly hypoattenuating. No masses. The spleen and adrenal glands are normal. PANCREAS: No masses. No peripancreatic inflammatory changes. GALLBLADDER: No identified stones by CT criteria. No inflammatory changes to suggest cholecystitis. RIGHT KIDNEY AND URETER: No suspicious masses. Assessment limited by lack of IV contrast. No signif icant calcifications. No hydronephrosis or hydroureter. LEFT KIDNEY AND URETER: No suspicious masses. Assessment limited by lack of IV contrast. No signifi cant calcifications. No hydronephrosis or hydroureter. AORTA AND RETROPERITONEUM: No aneurysm. No retroperitoneal masses or adenopathy. BOWEL AND PERITONEAL CAVITY: No obvious masses or inflammatory changes. No free fluid. APPENDIX: Normal. PELVIS, BLADDER, AND ABDOMINAL WALL:No abnormal masses. No free fluid. Bladder normal. BONES: No significant findings. OTHER: No other significant finding. IMPRESSION: There appears to be some degree of hepatic steatosis. No other significant findings in the abdomen or pelvis. COMMENT: Quality ID # [id number]: Final reports with documentation of one or more dose reduction techniques (e.g., Automated exposure control, adjustment of the mA and/or kV according to patient size, use of iterative reconstruction technique) TECHNICAL DOCUMENTATION: JOB ID: [id number] 2010 [employer]- All Rights Reserved Reading location - IP/workstation name: [email or web address]
--- NOTE | 2020-01-12 12:22 | ER Document Report ---
ED General - General Chief Complaint: Abdominal Pain Stated Complaint: ALCOHOL WITHDRAWL Time Seen by Provider: 01/12/20 09:42 Mode of Arrival: Ambulatory Information source: Patient TRAVEL OUTSIDE OF THE [place] IN LAST 30 DAYS: No - HPI Notes: Patient presents with abdominal pain. States is primarily epigastric. There is been going on for several days and is constant. Is severe. Nothing makes it better or worse. It radiates to the middle of his back. He states when he was here previously with this pain it was pancreatitis. States he does drink approximately 1/5 of hard liquor every day. States he last drank about 15 hours ago. He has had some nausea but no significant vomiting or problems with stool. - Related Data Allergies/Adverse Reactions: No Known Allergies Allergy (Verified 08/24/19 07:22) Home Medications: keppra Past Medical History - General Information source: Patient - Social History Smoking Status: Current Every Day Smoker Frequency of alcohol use: Fifth of whiskey per day Drug Abuse: None Family History: Reviewed & Not Pertinent Neurological Medical History: Reports: Hx Seizures - with ETOH withdrawal Renal/ Medical History: Denies: Hx Peritoneal Dialysis Psychiatric Medical History: Reports: Hx Depression Past Surgical History: Reports: Hx Tonsillectomy - Immunizations Hx Diphtheria, Pertussis, Tetanus Vaccination: Yes Review of Systems - Review of Systems Constitutional: denies: Chills, Fever Cardiovascular: denies: Chest pain, Palpitations Respiratory: denies: Cough, Short of breath -: Yes All other systems reviewed and negative Physical Exam - Vital signs Vitals: Temp Pulse Resp BP Pulse Ox 98.5 F 116 H 18 150/129 H 96 01/12/20 05:52 01/12/20 05:52 01/12/20 05:52 01/12/20 05:52 01/12/20 05:52 Interpretation: Hypertensive, Tachycardic - General General appearance: Appears well, Alert - HEENT Head: Normocephalic, Atraumatic Eyes: Normal Pupils: PERRL - Respiratory Respiratory status: No respiratory distress Chest status: Nontender Breath sounds: Normal Chest palpation: Normal - Cardiovascular Rhythm: Tachycardia Heart sounds: Normal auscultation Murmur: No - Abdominal Inspection: Normal Distension: No distension Bowel sounds: Normal Tenderness: Tender - Mild epigastric tenderness to palpation Organomegaly: No organomegaly - Back Back: Normal, Nontender - Extremities General upper extremity: Normal inspection, Nontender, Normal color, Normal ROM, Normal temperature General lower extremity: Normal inspection, Nontender, Normal color, Normal ROM, Normal temperature, Normal weight bearing. No: Erika's sign - Neurological Neuro grossly intact: Yes Cognition: Normal Orientation: AAOx4 Germán Coma Scale Eye Opening: Spontaneous Germán Coma Scale Verbal: Oriented Germán Coma Scale Motor: Obeys Commands [place] Coma Scale Total: 15 Speech: Normal Motor strength normal: LUE, RUE, LLE, RLE Additional motor exam normals: Other - Has intention tremor Sensory: Normal - Psychological Associated symptoms: Normal affect, Normal mood - Skin Skin Temperature: Warm Skin Moisture: Moist Skin Color: Normal Course - Re-evaluation Re-evalutation: 01/12/20 12:21 Patient presents with complaints of upper abdominal pain. He has no evidence of pancreatitis. He is nontoxic-appearing. He initially was tachycardic but after some Ativan his heart rate is now approximately 78. He has been slightly diaphoretic but he has been tolerating p.o.'s without problem. I feel he is in some mild alcohol withdrawal but not requiring admission to the hospital. I will discharge him home with some benzodiazepines. I have also referred him to the [facility]. In addition patient symptoms seem consistent with gastritis and I will discharge him home with Carafate. - Vital Signs Vital signs: Temp Pulse Resp BP Pulse Ox 98.5 F 116 H 18 150/129 H 96 01/12/20 05:52 01/12/20 05:52 01/12/20 05:52 01/12/20 05:52 01/12/20 05:52 - Laboratory Result Diagrams: 01/12/20 09:36 01/12/20 09:36 Laboratory results interpreted by me: 01/12/20 01/12/20 09:36 09:36 RDW 14.8 H Plt Count 98 L Carbon Dioxide 19 L AST 74 H Alkaline Phosphatase 128 H - Diagnostic Test Radiology reviewed: Image reviewed, Reports reviewed - EKG Interpretation by Me EKG shows normal: Sinus rhythm Rate: Normal - 78 Rhythm: NSR [place]/QRS: No: Right axis deviation, Left axis deviation Discharge - Discharge Clinical Impression: Alcohol abuse Alcoholic gastritis without bleeding Qualifiers: Chronicity: acute Qualified Code(s): K29.20 - Alcoholic gastritis without bleeding Abdominal pain Qualifiers: Abdominal location: epigastric Qualified Code(s): R10.13 - Epigastric pain Alcohol withdrawal Qualifiers: Complication of substance-induced condition: uncomplicated Qualified Code(s): F10.230 - Alcohol dependence with withdrawal, uncomplicated Condition: Stable Disposition: HOME, SELF-CARE Instructions: Abdominal Pain ([facility]), Alcohol Withdrawl ([facility]), Chronic Alcoholism ([facility]), Gastritis ([facility]) Additional Instructions: If you do not stop drinking he risk permanent disability and . Please call the [facility] as soon as possible to arrange for outpatient help with your alcoholism. Prescriptions: Sucralfate [Carafate] 1 gm PO Q6 14 Days #200 ml Chlordiazepoxide HCl 25 mg PO Q6 5 Days #20 capsule Forms: Return to Work Referrals: [facility] [Outside] - 01/12/20 1:00 pm [facility] [Provider Group] - Follow up in 3-5 days
[2020-01-12 12:23] LABS: APPEARANCE,URINE SLIGHTLY-CLOUDY; BILIRUBIN,URINE NEGATIVE (NEGATIVE); COLOR,URINE AMBER; GLUCOSE, URINE NEGATIVE (NEGATIVE); KETONES,URINE 20 mg/dL (NEGATIVE); LEUKOCYTE ESTERASE,URINE NEGATIVE (NEGATIVE); NITRITE,URINE NEGATIVE (NEGATIVE); PROTEIN,URINE >=500 mg/dL (NEGATIVE); URINE SPECIFIC GRAVITY 1.031
[2020-01-12 13:03] VITALS: BP 140/81
--- NOTE | 2020-01-12 15:16 | EKG REPORT ---
SEVERITY:- NORMAL ECG - SINUS RHYTHM : Confirmed by: Porsha Dickens MD 12-Jan-2020 15:15:15
== END 2020-01-12 13:02 | disposition home or self-care (01) ==
LOC: ER 05:42
DX: K29.20 Alcoholic gastritis without bleeding (principal); F10.230 Alcohol dependence with withdrawal, uncomplicated; R10.13 Epigastric pain; R11.0 Nausea; F17.200 Nicotine dependence, unspecified, uncomplicated
CPT/HCPCS: 93005; 99285; 36415; 83690; 85025; 80053; 81001; 74176; 93010; S0119; J3490

== ENCOUNTER 2020-02-18 04:38 | Emergency (ER) | payer SELFPAY ==
[2020-02-18 05:11] LABS: ABSOLUTE BASOPHILS # (AUTO) 0.1 10^3/uL (0.0-0.2); ABSOLUTE EOSINOPHILS # (AUTO) 0.1 10^3/uL (0.0-0.6); ABSOLUTE LYMPHOCYTES (AUTO) 1.4 10^3/uL (0.5-4.7); ABSOLUTE MONOCYTES (AUTO) 0.3 10^3/uL (0.1-1.4); ABSOLUTE NEUT (AUTO) 4.3 10^3/uL (1.7-8.2); BASOPHILS % (AUTO) 1.3 % (0-2); EOSINOPHILS % (AUTO) 0.9 % (0-6); HEMATOCRIT 42.9 % (37.9-51.0); HEMOGLOBIN 14.7 g/dL (13.5-17.0); LYMPHOCYTES % (AUTO) 22.2 % (13-45); MEAN CORPUSCULAR HEMOGLOBIN 33.1 pg (27.0-33.4); MEAN CORPUSCULAR HGB CONC 34.3 g/dL (32.0-36.0); MEAN CORPUSCULAR VOLUME 96 fl (80-97); MONOCYTES % (AUTO) 4.7 % (3-13); PLATELET COUNT 107 10^3/uL (150-450); RED BLOOD COUNT 4.45 10^6/uL (4.35-5.55); RED CELL DISTRIBUTION WIDTH 18.1 % (11.5-14.0); SEGMENTED NEUTROPHILS % (AUTO) 70.9 % (42-78); TOTAL CELLS COUNTED % (AUTO) 100 %; WHITE BLOOD COUNT 6.1 10^3/uL (4.0-10.5)
[2020-02-18 05:26] LABS: ALBUMIN 4.1 g/dL (3.5-5.0); ALKALINE PHOSPHATASE 221 U/L (38-126); ANION GAP 16 (5-19); ASPARTATE AMINO TRANSFERASE 246 U/L (17-59); BILIRUBIN,DIRECT 0.4 mg/dL (0.0-0.4); BILIRUBIN,TOTAL 0.9 mg/dL (0.2-1.3); BLOOD UREA NITROGEN 4 mg/dL (7-20); CALCIUM 9.3 mg/dL (8.4-10.2); CARBON DIOXIDE 17 mmol/L (22-30); CHLORIDE 100 mmol/L (98-107); GLUCOSE 148 mg/dL (75-110); TOTAL PROTEIN 7.4 g/dL (6.3-8.2)
[2020-02-18 05:33] LABS: ALCOHOL < 10 mg/dL (NONE DETECTED)
[2020-02-18] MEDS ORDERED: NORMAL SALINE 1000 ML 1,000 ML IV ONE (05:44)
[2020-02-18] MEDS ORDERED: LORAZEPAM INJ 2 MG/1 ML VIAL IV ONE (05:45)
[2020-02-18] MEDS ORDERED: LEVETIRACETAM 1000 MG/NACL-ISO 1,000 MG/100 ML RTUPB IV ONE (05:50)
--- NOTE | 2020-02-18 05:55 | ER Document Report ---
ED General - General TRAVEL OUTSIDE OF THE [place] IN LAST 30 DAYS: No - Related Data Home Medications: keppra <TOMA PROCTOR - Last Filed: 02/18/20 05:50> <ADRIANNE MOJICA - Last Filed: 02/18/20 12:54> - General Chief Complaint: Seizure Stated Complaint: POSSIBLE SEIZURES Time Seen by Provider: 02/18/20 04:43 - HPI Notes: Patient is a 34-year-old male with a history of chronic alcoholism and seizures who presents to the emergency department for evaluation after a seizure. He states that his girlfriend woke him up screaming, evidently he was seizing next to her. He states he has not been taking his Keppra, is been several days since he took it. He states he has been drinking. Initially he tells me that he does not want to quit drinking, then he tells me that he does, and has been cutting down. (TOMA PROCTOR) - Related Data Allergies/Adverse Reactions: No Known Allergies Allergy (Verified 02/18/20 04:41) Past Medical History - General Information source: Patient, [facility] Records - Social History Smoking Status: Current Every Day Smoker Frequency of alcohol use: Heavy Drug Abuse: None Family History: Reviewed & Not Pertinent - Unknown per patient Patient has homicidal ideation: No Neurological Medical History: Reports: Hx Seizures - with ETOH withdrawal Renal/ Medical History: Denies: Hx Peritoneal Dialysis GI Medical History: Reports: Hx Pancreatitis Psychiatric Medical History: Reports: Hx Depression Past Surgical History: Reports: Hx Tonsillectomy - Immunizations Hx Diphtheria, Pertussis, Tetanus Vaccination: Yes <TOMA PROCTOR - Last Filed: 02/18/20 05:50> Review of Systems - Review of Systems Constitutional: See HPI EENT: No symptoms reported Cardiovascular: No symptoms reported Respiratory: No symptoms reported Gastrointestinal: No symptoms reported Genitourinary: No symptoms reported Musculoskeletal: No symptoms reported Skin: No symptoms reported Neurological/Psychological: See HPI <TOMA PROCTOR - Last Filed: 02/18/20 05:50> Physical Exam <TOMA PROCTOR - Last Filed: 02/18/20 05:50> - Vital signs Vitals: Resp Pulse Ox 23 H 85 L 02/18/20 04:39 02/18/20 04:39 - Notes Notes: There is a 34-year-old male who appears stated age, in no acute distress. He is mildly tremulous, but not agitated. He is cooperative with examiner. Vital signs reviewed, please refer to chart. Head is normocephalic, atraumatic. Pupils equal round, reactive to light. Neck is supple without meningismus. Heart is regular rate and rhythm. Lungs are clear to auscultation bilaterally. Abdomen is soft, nontender, normoactive bowel sounds throughout. Extremities without cyanosis, clubbing. Posterior calves are nontender. Peripheral pulses are equal. Skin is warm and dry. Patient is awake, alert, oriented x3. Cranial nerves II - XII are grossly intact without focal neurological deficits. Strength is plus 5 out of 5 bilateral upper and lower extremities. Sensation is intact. Reflexes symmetrical. Intact [id number], rapid alternating movements, [id number]. (TOMA PROCTOR) Course - Laboratory Result Diagrams: 02/18/20 05:00 02/18/20 05:00 <TOMA PROCTOR - Last Filed: 02/18/20 05:50> - Laboratory Result Diagrams: 02/18/20 05:00 02/18/20 05:00 <ADRIANNE MOJICA - Last Filed: 02/18/20 12:54> - Re-evaluation Re-evalutation: 02/18/20 05:54 Patient presents to the emergency department for evaluation. Laboratory investigations ordered, space and a secured entrance monitor. His labs showed an absolutely negative alcohol level. He states that he has been trying to cut down, but he cannot tell me when the last time he had a drink was. I did give him Ativan given his tremors. He remains alert and oriented. I will load him with Keppra. At this point, will consult psychosocial team for possible treatment for alcohol dependence. The patient at this point does not meet inpatient criteria. He will need medication to help with alcohol withdrawal. (TOMA PROCTOR) 02/18/20 09:06 Patient resting quietly on stretcher, patient is asking for breakfast at this time, tray has been ordered. Vital signs stable. No tremulousness noted at this time. 02/18/20 12:52 Behavioral health team has evaluated patient, patient does not meet IVC criteria at this time. Patient would like outpatient resource information on detox. These forms were provided to patient. Patient is requesting prescription for Librium. Patient encouraged to follow-up with detox facility on an outpatient basis. Consulted with Dr. Phillips regarding patient's request for Librium, he does not recommend prescription for Librium at this time but does encourage patient to be compliant with his antiepileptic medication. (ADRIANNE MOJICA) - Vital Signs Vital signs: Temp Pulse Resp BP Pulse Ox 98.4 F 101 H 26 H 112/87 H 98 02/18/20 06:47 02/18/20 04:50 02/18/20 11:01 02/18/20 11:01 02/18/20 11:01 - Laboratory Laboratory results interpreted by me: 02/18/20 02/18/20 02/18/20 05:00 05:00 05:07 RDW 18.1 H Plt Count 107 L Sodium 133.1 L Carbon Dioxide 17 L BUN 4 L Glucose 148 H POC Glucose 150 H AST 246 H ALT 65 H Alkaline Phosphatase 221 H Urine Protein Urine Ketones Urine Blood Urine Urobilinogen 02/18/20 06:30 RDW Plt Count Sodium Carbon Dioxide BUN Glucose POC Glucose AST ALT Alkaline Phosphatase Urine Protein 100 H Urine Ketones TRACE H Urine Blood SMALL H Urine Urobilinogen 2.0 H - EKG Interpretation by Me Additional EKG results interpreted by me: 02/18/20 05:55 Sinus tachycardia with rate of 102 bpm. Normal axis and intervals. No acute ST changes concerning for ischemia or infarction. (TOMA PROCTOR) Discharge <TOMA PROCTOR - Last Filed: 02/18/20 05:50> <ADRIANNE MOJICA - Last Filed: 02/18/20 12:54> - Discharge Clinical Impression: Seizure, Alcohol abuse, noncompliance with seizure medication Condition: Stable Disposition: HOME, SELF-CARE Instructions: Seizure, Known Epileptic ([facility]), Chronic Alcoholism ([facility]) Additional Instructions: Return immediately for any new or worsening symptoms Followup with your primary care provider, call tomorrow to make a followup appointment Take your seizure medication daily as prescribed Follow-up with an outpatient detox facility from list provided for assistance with your chronic alcoholism Forms: Return to Work Referrals: [facility] [Provider Group] - Follow up as needed
[2020-02-18 07:08] LABS: APPEARANCE,URINE CLEAR; BILIRUBIN,URINE NEGATIVE (NEGATIVE); COLOR,URINE YELLOW; GLUCOSE, URINE NEGATIVE (NEGATIVE); KETONES,URINE TRACE mg/dL (NEGATIVE); LEUKOCYTE ESTERASE,URINE NEGATIVE (NEGATIVE); NITRITE,URINE NEGATIVE (NEGATIVE); PROTEIN,URINE 100 mg/dL (NEGATIVE)
[2020-02-18 07:25] LABS: URINE AMPHETAMINES SCREEN NEGATIVE; URINE BARBITURATES SCREEN NEGATIVE; URINE COCAINE SCREEN NEGATIVE; URINE MARIJUANA (THC) SCREEN NEGATIVE; URINE METHADONE SCREEN NEGATIVE; URINE PHENCYCLIDINE SCREEN NEGATIVE
[2020-02-18 07:26] LABS: URINE BENZODIAZEPINES SCREEN UNCONFIRMED POSITIVE
[2020-02-18 11:27] VITALS: BP 112/87
--- NOTE | 2020-02-18 22:07 | PSYCHOLOGICAL NOTE ---
Psych Note - Psych Note Date seen by psych provider: 02/18/20 Time seen by psych provider: 12:00 Psych Note: Reason for Consult: alcohol abuse Patient is a 34 year old male who presented to the [facility] ED due to alcohol abuse. Patient reports he stopped taking his Keppra about 2 weeks ago because he started drinking. Reports he does not use medication and drink together. Patient states he drinks a fifth of rum a day for the past 2 weeks. Reports yesterday he had a couple of beers. In the past patient has been admitted to [facility] for detox and has been involved in intensive outpatient alcohol treatment with [facility]. Patient reports he stopped outpatient treatment one year ago when he got off probation because he was no longer required to go. Patient denies suicidal and homicidal ideations, plan, or intent. Patient was alert and oriented to self, person, place, time and situation. Mood was content with congruent affect. He denied current SI/HI. Patient did not appear to be responding to internal stimuli as evidenced by fair eye contact and answering questions appropriately when addressed. Thought processes are linear and organized. Conversational speech was within normal limits for rate, tone and prosody. Intellectual abilities are estimated to be average. Insight, judgment and impulse control were fair as evidenced by stating he thought he could handle drinking a few beers, but has realized this is not possible. Clinical Presentation: alcohol abuse IVC Criteria per [place] GS 122C Dangerous to others Within the relevant past the individual No has inflicted or attempted to inflict or threatened to inflict serious bodily harm on another AND No that there is a reasonable probability that this conduct will be repeated. OR No has acted in such a way as to create a substantial risk of serious bodily harm to another AND No that there is a reasonable probability that this conduct will be repeated. OR No has engaged in extreme destruction of property AND NO that there is a reasonable probability that this conduct will be repeated. Previous episodes of dangerousness to others, when applicable, may be considered when determining reasonable probability of future dangerous conduct. Clear, cogent, and convincing evidence that an individual has committed a homicide in the relevant past is prima facie evidence of dangerousness to others. Dangerous to self Within the relevant past the individual has done any of the following: acted in such a way as to show ALL of the following: No The individual would be unable without care, supervision, and the continued assistance of others not otherwise available, to exercise self- control, judgment, and discretion in the conduct of the individual's daily responsibilities and social relations or to satisfy the individual's need for nourishment, personal or medical care, custodial, or self-protection and safety. AND No There is a reasonable probability of the individual suffering serious physical debilitation within the near future unless adequate treatment is given. A showing of behavior that is grossly irrational, of actions that the individual is unable to control, of behavior that is grossly inappropriate to the situation, or of other evidence of severely impaired insight and judgment shall create a prima facie inference that the individual is unable to care for himself or herself. OR No has attempted suicide or threatened suicide AND No that there is a reasonable probability of suicide unless adequate treatment is given OR No has mutilated himself or herself or attempted to mutilate himself or herself AND No that there is a reasonable probability of serious self-mutilation unless adequate treatment is given. NOTE: Previous episodes of dangerousness to self, when applicable, may be considered when determining reasonable probability of physical debilitation, suicide, or self-mutilation. Impression\plan: Patient is discharged home. Patient is highly recommended to stop drinking alcohol and attend AA meetings. Patient was given substance abuse treatment center referral list for the community and was provided with online referrals as well. Dr. Ogden was consulted to care management of this patient; attending physicia ns in agreement with recommendations and disposition.
--- NOTE | 2020-02-19 09:20 | EKG REPORT ---
SEVERITY:- OTHERWISE NORMAL ECG - SINUS TACHYCARDIA : Confirmed by: Phyllis Alfonso 19-Feb-2020 09:20:05
== END 2020-02-18 13:09 | disposition home or self-care (01) ==
LOC: ER 04:38
DX: R56.9 Unspecified convulsions (principal); F10.10 Alcohol abuse, uncomplicated; F17.200 Nicotine dependence, unspecified, uncomplicated; Z91.14 Patient's other noncompliance with medication regimen
CPT/HCPCS: 93005; 99284; 96361; 96374; 96375; 36415; 82962; 80307 ×2; 83735; 85025; 80053; 81001; 93010; J2060; J7030; J1953

== ENCOUNTER 2020-02-26 12:38 | Emergency (ER) | payer SELFPAY ==
[2020-02-26] MEDS ORDERED: LEVETIRACETAM 1000 MG/NACL-ISO 1,000 MG/100 ML RTUPB IV ONE (13:08)
--- NOTE | 2020-02-26 13:11 | ER Document Report ---
ED Medical Screen (RME) - General Chief Complaint: Alcohol Withdrawl Stated Complaint: ALCOHOL WITHDRAWL Time Seen by Provider: 02/26/20 12:59 Notes: Patient is a 34-year-old male presents emergency department for alcohol withdrawal symptoms. His last drink was just prior to arrival. Patient is not able to give very much history, but mobile crisis has accompanied him and mobile crisis states that the patient has history of suicidal ideation. They were called for alcohol withdrawal symptoms. Patient reports that he has a history of seizures and is supposed to be taking Keppra, but has not. Exam: Incomprehensible speech. Patient staggering in the room. I have greeted and performed a rapid initial assessment of this patient. A comprehensive ED assessment and evaluation of the patient, analysis of test results and completion of medical decision making process will be conducted by an additional ED providers. TRAVEL OUTSIDE OF THE [place] IN LAST 30 DAYS: No - Related Data Allergies/Adverse Reactions: No Known Allergies Allergy (Verified 02/18/20 04:41) Past Medical History Neurological Medical History: Reports: Hx Seizures - with ETOH withdrawal Renal/ Medical History: Denies: Hx Peritoneal Dialysis GI Medical History: Reports: Hx Pancreatitis Psychiatric Medical History: Reports: Hx Depression Past Surgical History: Reports: Hx Tonsillectomy - Immunizations Hx Diphtheria, Pertussis, Tetanus Vaccination: Yes Physical Exam - Vital signs Vitals: Temp Pulse Resp BP Pulse Ox 97.9 F 138 H 20 144/72 H 98 02/26/20 12:43 02/26/20 12:43 02/26/20 12:43 02/26/20 12:43 02/26/20 12:43 Course - Vital Signs Vital signs: Temp Pulse Resp BP Pulse Ox 97.9 F 138 H 20 144/72 H 98 02/26/20 12:43 02/26/20 12:43 02/26/20 12:43 02/26/20 12:43 02/26/20 12:43
--- NOTE | 2020-02-26 13:24 | ER Document Report ---
ED General - General Chief Complaint: ETOH Abuse Stated Complaint: ALCOHOL WITHDRAWL Time Seen by Provider: 02/26/20 12:59 Notes: HPI: 34-year-old male presents today with admitted excessive alcohol intake. History of alcohol abuse in the past. Patient currently denies any suicidal homicidal ideations. No vomiting or fevers. No chest pain or shortness of breath. ROS: See HPI Unable to obtain secondary to patient's condition Reviewed vital signs and nursing note as charted by RN. PHYSICAL EXAM: CONSTITUTIONAL: Currently sleeping, smelling of alcohol, easily arousable HEAD: Normocephalic; atraumatic EYES: PERRL; Conjunctivae clear, sclerae non-icteric ENT: Normal nose; no rhinorrhea; moist mucous membranes; pharynx without lesions noted NECK: Supple without meningismus; non-tender; no cervical lymphadenopathy, no masses CARD: Regular rate and rhythm; no murmurs; symmetric distal pulses RESP: Normal chest excursion without splinting or tachypnea; breath sounds clear and equal bilaterally ABD/GI: Normal bowel sounds; non-distended; soft, non-tender BACK: The back appears normal and is non-tender to palpation EXT: Normal ROM in all joints; non-tender to palpation; no edema SKIN: No acute lesions noted NEURO: CN 2-12 intact; 5/5 bilateral upper and lower extremity strength with sensation intact to light touch PSYCH: The patient's mood and manner are appropriate. Grooming and personal hygiene are appropriate. TRAVEL OUTSIDE OF THE [place] IN LAST 30 DAYS: No - Related Data Allergies/Adverse Reactions: No Known Allergies Allergy (Verified 02/18/20 04:41) Past Medical History - Social History Smoking Status: Current Every Day Smoker Family History: Reviewed & Not Pertinent - Unknown per patient Neurological Medical History: Reports: Hx Seizures - with ETOH withdrawal Renal/ Medical History: Denies: Hx Peritoneal Dialysis GI Medical History: Reports: Hx Pancreatitis Psychiatric Medical History: Reports: Hx Depression Past Surgical History: Reports: Hx Tonsillectomy - Immunizations Hx Diphtheria, Pertussis, Tetanus Vaccination: Yes Physical Exam - Vital signs Vitals: Temp Pulse Resp BP Pulse Ox 97.9 F 138 H 20 144/72 H 98 02/26/20 12:43 02/26/20 12:43 02/26/20 12:43 02/26/20 12:43 02/26/20 12:43 Course - Re-evaluation Re-evalutation: Given the above history and physical, we will obtain basic labs, psychiatric laboratory values in case the patient is able to find treatment placement, and keep the patient on the monitor. I do not believe the patient requires any acute imaging as I do not see any obvious signs of trauma. 02/26/20 13:24 EKG shows a heart rate of 119, sinus tachycardia, normal axis, no ST elevation or depression. 02/26/20 14:54 Blood alcohol level as recorded. Heart rate is currently 82. 02/26/20 17:16 Labs as recorded. Patient is more conversant. Vital signs are stable. Ac cording to behavioral health we are to call [facility] who will help expedite the patient to a treatment center when the patient is able to eat and walk. - Vital Signs Vital signs: Temp Pulse Resp BP Pulse Ox 97.9 F 138 H 16 120/74 92 02/26/20 12:43 02/26/20 12:43 02/26/20 14:01 02/26/20 14:00 02/26/20 14:01 - Laboratory Result Diagrams: 02/26/20 13:29 02/26/20 13:29 Laboratory results interpreted by me: 02/26/20 02/26/20 13:29 13:29 MCH 34.0 H RDW 18.9 H [place] % (Auto) 17.7 H Seg Neutrophils % 37.2 L Carbon Dioxide 18 L Glucose 140 H Alkaline Phosphatase 161 H Salicylates < 1.0 L Acetaminophen < 10 L Serum Alcohol 389 H* Discharge - Discharge Clinical Impression: Alcohol intoxication Qualifiers: Complication of substance-induced condition: with unspecified complication Qualified Code(s): F10.929 - Alcohol use, unspecified with intoxication, unspecified Condition: Fair Disposition: HOME, SELF-CARE Additional Instructions: Please go directly through [facility] to the treatment center as provided.
[2020-02-26 13:48] LABS: ABSOLUTE BASOPHILS # (AUTO) 0.1 10^3/uL (0.0-0.2); ABSOLUTE LYMPHOCYTES (AUTO) 2.3 10^3/uL (0.5-4.7); EOSINOPHILS % (AUTO) 0.6 % (0-6); HEMATOCRIT 46.5 % (37.9-51.0); HEMOGLOBIN 16.3 g/dL (13.5-17.0); LYMPHOCYTES % (AUTO) 42.5 % (13-45); MEAN CORPUSCULAR HGB CONC 35.1 g/dL (32.0-36.0); MEAN CORPUSCULAR VOLUME 97 fl (80-97); MONOCYTES % (AUTO) 17.7 % (3-13); PLATELET COUNT 253 10^3/uL (150-450); RED BLOOD COUNT 4.79 10^6/uL (4.35-5.55); RED CELL DISTRIBUTION WIDTH 18.9 % (11.5-14.0); SEGMENTED NEUTROPHILS % (AUTO) 37.2 % (42-78); TOTAL CELLS COUNTED % (AUTO) 100 %; WHITE BLOOD COUNT 5.5 10^3/uL (4.0-10.5)
[2020-02-26 14:03] LABS: ALBUMIN 4.4 g/dL (3.5-5.0); ALKALINE PHOSPHATASE 161 U/L (38-126); ANION GAP 17 (5-19); ASPARTATE AMINO TRANSFERASE 56 U/L (17-59); BILIRUBIN,DIRECT 0.3 mg/dL (0.0-0.4); BILIRUBIN,TOTAL 0.5 mg/dL (0.2-1.3); BLOOD UREA NITROGEN 13 mg/dL (7-20); CALCIUM 9.1 mg/dL (8.4-10.2); CARBON DIOXIDE 18 mmol/L (22-30); CHLORIDE 107 mmol/L (98-107); GLUCOSE 140 mg/dL (75-110); POTASSIUM 4.2 mmol/L (3.6-5.0); TOTAL PROTEIN 7.8 g/dL (6.3-8.2)
[2020-02-26 14:27] LABS: ACETAMINOPHEN < 10 ug/mL (10-30); SALICYLATE < 1.0 mg/dL (2.0-20.0)
[2020-02-26 14:28] LABS: ALCOHOL 389 mg/dL (NONE DETECTED)
--- NOTE | 2020-02-26 15:17 | RADIOLOGY REPORT (SQ) ---
EXAM DESCRIPTION: CT HEAD WITHOUT IMAGES COMPLETED DATE/TIME: 02/26/2020 2:50 pm REASON FOR STUDY: ETOH abuse; confusion COMPARISON: 07/07/2019. TECHNIQUE: Axial images acquired through the brain without intravenous contrast. Images reviewed wi th bone, brain and subdural windows. Additional sagittal and coronal reconstructions were generated. Images stored on PACS. All CT scanners at this facility use dose modulation, iterative reconstruction, and/or weight based d osing when appropriate to reduce radiation dose to as low as reasonably achievable (ALARA). [facility]: Dose Right [facility]: CareDose [facility]: Dose Right [facility]: Teradose 4D [facility]: Fusion Smoothies RADIATION DOSE: CT Rad equipment meets quality standard of care and radiation dose reduction techniq ues were employed. CTDIvol: 53.2 mGy. DLP: 1124 mGy-cm. mGy. LIMITATIONS: None. FINDINGS: VENTRICLES: Normal size and contour. CEREBRUM: No masses. No hemorrhage. No midline shift. No evidence for acute infarction. Normal gra y/white matter differentiation. No areas of low density in the white matter. CEREBELLUM: No masses. No hemorrhage. No alteration of density. No evidence for acute infarction. EXTRAAXIAL SPACES: No fluid collections. No masses. ORBITS AND GLOBE: No intra- or extraconal masses. Normal contour of globe without masses. CALVARIUM: No fracture. PARANASAL SINUSES: No fluid or mucosal thickening. SOFT TISSUES: No mass or hematoma. OTHER: No other significant finding. IMPRESSION: NORMAL BRAIN CT WITHOUT CONTRAST. EVIDENCE OF ACUTE STROKE: NO. COMMENT: Quality ID # [id number]: Final reports with documentation of one or more dose reduction techniques (e.g., Automated exposure control, adjustment of the mA and/or kV according to patient size, use of iterative reconstruction technique) TECHNICAL DOCUMENTATION: JOB ID: [id number] 2010 [employer]- All Rights Reserved Reading location - IP/workstation name: [email or web address]
[2020-02-26 17:48] VITALS: BP 131/93
[2020-02-26] MEDS ORDERED: NORMAL SALINE 1000 ML 1,000 ML with POTASSIUM CHLORIDE 20 MEQ, MAGNESIUM SULFATE 8 MEQ,... IV SCH ×10 (18:00)
[2020-02-26 18:37] LABS: APPEARANCE,URINE CLEAR; BILIRUBIN,URINE NEGATIVE (NEGATIVE); COLOR,URINE YELLOW; GLUCOSE, URINE NEGATIVE (NEGATIVE); KETONES,URINE NEGATIVE (NEGATIVE); LEUKOCYTE ESTERASE,URINE NEGATIVE (NEGATIVE); NITRITE,URINE NEGATIVE (NEGATIVE); PROTEIN,URINE NEGATIVE (NEGATIVE); URINE SPECIFIC GRAVITY 1.016; UROBILINOGEN,URINE NEGATIVE mg/dL (<2.0)
[2020-02-26 18:49] LABS: URINE AMPHETAMINES SCREEN NEGATIVE; URINE BARBITURATES SCREEN NEGATIVE; URINE BENZODIAZEPINES SCREEN NEGATIVE; URINE COCAINE SCREEN NEGATIVE; URINE MARIJUANA (THC) SCREEN NEGATIVE; URINE METHADONE SCREEN NEGATIVE; URINE PHENCYCLIDINE SCREEN NEGATIVE
--- NOTE | 2020-02-26 19:46 | EKG REPORT ---
SEVERITY:- OTHERWISE NORMAL ECG - SINUS TACHYCARDIA : Confirmed by: Porsha Dickens MD 26-Feb-2020 19:45:58
== END 2020-02-26 17:48 | disposition home or self-care (01) ==
LOC: ER 12:38
DX: F10.929 Alcohol use, unspecified with intoxication, unspecified (principal); F17.200 Nicotine dependence, unspecified, uncomplicated; G40.909 Epilepsy, unspecified, not intractable, without status epilepticus; Z91.19 Patient's noncompliance with other medical treatment and regimen
CPT/HCPCS: 93005; 99285; 96361; 96374; 36415; 80307 ×4; 85025; 80053; 81001; 70450; 93010; J3475; J3480; J3411; J7030; J3490; J1953

== ENCOUNTER 2020-04-26 15:45 | Emergency (ER) | payer SELFPAY ==
[2020-04-26 16:36] LABS: ABSOLUTE MONOCYTES (AUTO) 0.7 10^3/uL (0.1-1.4); ABSOLUTE NEUT (AUTO) 5.5 10^3/uL (1.7-8.2); BASOPHILS % (AUTO) 0.5 % (0-2); EOSINOPHILS % (AUTO) 0.1 % (0-6); HEMATOCRIT 37.3 % (37.9-51.0); LYMPHOCYTES % (AUTO) 13.5 % (13-45); MEAN CORPUSCULAR HEMOGLOBIN 36.7 pg (27.0-33.4); MEAN CORPUSCULAR VOLUME 105 fl (80-97); MONOCYTES % (AUTO) 9.3 % (3-13); PLATELET COUNT 101 10^3/uL (150-450); RED BLOOD COUNT 3.55 10^6/uL (4.35-5.55); RED CELL DISTRIBUTION WIDTH 14.1 % (11.5-14.0); SEGMENTED NEUTROPHILS % (AUTO) 76.6 % (42-78); TOTAL CELLS COUNTED % (AUTO) 100 %; WHITE BLOOD COUNT 7.1 10^3/uL (4.0-10.5)
[2020-04-26] MEDS ORDERED: LORAZEPAM INJ 2 MG/1 ML VIAL IV ONE (16:44)
[2020-04-26] MEDS ORDERED: LEVETIRACETAM 1500 MG/NACL-ISO 1,500 MG/100 ML RTUPB IV ONE (16:44)
[2020-04-26] MEDS ORDERED: NORMAL SALINE 1000 ML 1,000 ML IV ONE (16:44)
[2020-04-26 16:54] LABS: ALBUMIN 4.3 g/dL (3.5-5.0); ALKALINE PHOSPHATASE 123 U/L (38-126); ANION GAP 8 (5-19); ASPARTATE AMINO TRANSFERASE 115 U/L (17-59); BILIRUBIN,DIRECT 0.3 mg/dL (0.0-0.4); BILIRUBIN,TOTAL 0.6 mg/dL (0.2-1.3); BLOOD UREA NITROGEN 11 mg/dL (7-20); CARBON DIOXIDE 25 mmol/L (22-30); CHLORIDE 103 mmol/L (98-107); GLUCOSE 102 mg/dL (75-110); POTASSIUM 3.7 mmol/L (3.6-5.0); TOTAL PROTEIN 7.3 g/dL (6.3-8.2)
[2020-04-26 16:55] LABS: ALCOHOL < 10 mg/dL (NONE DETECTED)
--- NOTE | 2020-04-26 17:12 | ER Document Report ---
Entered by TRICE ANDRE SCRIBE 04/26/20 1644 Acting as scribe for:ALEN CANTRELL MD ED Seizure - General Chief Complaint: Seizure Stated Complaint: PSYCH Time Seen by Provider: 04/26/20 16:32 Primary Care Provider: [facility] [Outside] - Follow up as needed Information source: Patient Notes: This 34-year-old male patient presents to the emergency department today with complaints of a seizure. Patient is an alcoholic, last drink was last night at midnight. Patient reports that while at work today he started "seeing little dots", he told his boss, they laid him down on the ground and he began seizing shortly after. He reports being on Keppra, last taking it about a week ago. He states he ran out of the medicine. He does not know if he has a true seizure disorder or if his seizures are related to alcohol withdrawal. He does admit that he seems to have the seizures after he has not been taking Keppra. He is also complaining of epigastric abdominal pain which was present prior to the seizure. He was last admitted here on 03/13/2020 with alcoholic pancreatitis. He has been seen many times for alcoholic pancreatitis in the past 6 months. He also has a history of hypertriglyceridemia which is most likely contributing to his pancreatitis. Records suggest that he filled 1 prescription for fenofibrate on 10/24/2019, but has not taken any since then. - Related Data Allergies/Adverse Reactions: No Known Allergies Allergy (Verified 02/18/20 04:41) Past Medical History - General Information source: Patient - Social History Smoking Status: Current Every Day Smoker Cigarette use (# per day): Yes Chew tobacco use (# tins/day): No Frequency of alcohol use: Heavy Drug Abuse: None Occupation: [employer] Family History: Reviewed & Not Pertinent - Unknown per patient Patient has homicidal ideation: No - Past Medical History Cardiac Medical History: Reports: Hx Hypercholesterolemia, Other - Portal vein thrombosis Neurological Medical History: Reports: Hx Seizures - with ETOH withdrawal GI Medical History: Reports: Hx Pancreatitis Psychiatric Medical History: Reports: Hx Depression Past Surgical History: Reports: Hx Tonsillectomy - Immunizations Hx Diphtheria, Pertussis, Tetanus Vaccination: Yes Review of Systems - Review of Systems Constitutional: No symptoms reported EENT: No symptoms reported Cardiovascular: No symptoms reported Respiratory: No symptoms reported Gastrointestinal: See HPI, Abdominal pain Genitourinary: No symptoms reported Male Genitourinary: No symptoms reported Musculoskeletal: No symptoms reported Skin: No symptoms reported Hematologic/Lymphatic: No symptoms reported Neurological/Psychological: See HPI, Seizure -: Yes All other systems reviewed and negative Physical Exam - Vital signs Vitals: Resp Pulse Ox 18 97 04/26/20 16:30 04/26/20 16:30 - Notes Notes: Physical Exam: General: Alert, mild shaking. HEENT: Normocephalic. Atraumatic. PERRL. Extraocular movements intact. Oropharynx clear. Neck: Supple. Non-tender. Respiratory: No respiratory distress. Clear and equal breath sounds bilaterally. Cardiovascular: Regular rate and rhythm. Abdominal: Epigastric tenderness to palpation, hyperactive bowel sounds. Mildly distended. Back: No gross abnormalities. Extremities: Moves all four extremities. Upper extremities: Normal inspection. Normal ROM. Lower extremities: Normal inspection. No edema. Normal ROM. Neurological: Normal cognition. AAOx4. Normal speech. Psychological: Normal affect. Normal Mood. Skin: Warm. Dry. Normal color. Course - Re-evaluation Re-evalutation: 04/26/20 18:50 On 03/13/2020 the patient's lipase was 1,803 today it is 60. This makes it unlikely that his epigastric pain is due to pancreatitis today, is more likely due to alcohol gastritis and esophagitis. I did discuss the long-term prognosis if he continues to drink and suffer repeated episodes of pancreatitis. He is at very high risk for chronic pancreatitis with chronic unrelenting abdominal pain. He is also at risk of developing insulin-dependent diabetes. He does seem to understand the seriousness of his drinking disorder, but I am not convinced that he is willing to go through treatment to stop. - Vital Signs Vital signs: Temp Pulse Resp BP Pulse Ox 98.9 F 97 16 122/84 99 04/26/20 16:37 04/26/20 16:37 04/26/20 18:01 04/26/20 18:01 04/26/20 18:01 - Laboratory Results Result Diagrams: 04/26/20 16:15 04/26/20 16:15 Laboratory Results Interpreted: 04/26/20 04/26/20 04/26/20 16:15 16:15 16:15 RBC 3.55 L Hgb 13.0 L Hct 37.3 L MCV 105 H MCH 36.7 H RDW 14.1 H Plt Count 101 L Sodium 135.9 L Magnesium 1.3 L AST 115 H ALT 66 H Critical Laboratory Results Reviewed: No Critical Results - Radiology Results Critical Radiology Results Reviewed: No Critical Results Discharge - Discharge Clinical Impression: Chronic alcohol abuse, Seizure disorder, Hypertriglyceridemia without h ypercholesterolemia, Noncompliance with medication regimen, Epigastric abdominal pain, History of pancreatitis Disposition: HOME, SELF-CARE Additional Instructions: Seizure, Known Epileptic You have had a seizure. Seizures may "break through" in an epileptic due to stress of infection or injury, a change in blood chemistry, or drug and alc ohol use. Another common cause is failure to take medication as prescribed. Your doctor has evaluated your situation for the likely cause of this seizure. It is important that you follow his advice concerning any medication changes and follow-up care. Further testing of anti-seizure medication levels in your blood may be necessary. If you have a milk wagon driver's license, it's important that you DO NOT DRIVE until given permission by your physician. This seizure must be reported to the [facility]'s license bureau. Call the doctor or return if seizures recur, or if new or unusual symptoms arise -- such as severe headache, confusion, excessive sleepiness, local weakness or numbness, neck stiffness, or fever. Abdominal Pain There are many causes of abdominal pain. Pain can mean a serious problem requiring surgery (such as appendicitis). It can also be an innocent problem that goes away on its own (such as a viral infection). Often, time must pass to determine the cause of pain. The physician does not feel that hospitalization is necessary, at present. Things may change within the next 24 hours. Call the doctor or come back for re-examination if any problems occur, such as: (1) Pain that becomes more severe, steady, or becomes concentrated in one specific area. Also, pain that is more severe with movement or coughing. (2) Vomiting that persists or becomes more frequent. (3) Blood in the vomitus, urine, or bowel movements. Blood in the stool may have a tarry or black appearance. (4) Shaking chills or fever greater than 100 degrees F. (5) The abdomen becomes more distended or swollen. (6) Bowel movements cease. (7) Failure to improve as expected. Your seizure today was probably due to not taking Keppra, and alcohol withdrawal. Your epigastric abdominal pain is likely due to your alcohol abuse, your lab work today does not suggest that you have acute pancreatitis. You should take the Keppra as prescribed to help prevent seizures. You should take the fenofibrate as prescribed to keep your triglyceride levels down as this will reduce your risk of pancreatitis. You should follow-up with a local primary care provider to manage your seizure disorder and your hypertriglyceridemia. Consider going over to [facility] to start an alcohol detox program. RETURN TO THE EMERGENCY ROOM IF ANY NEW OR WORSENING SYMPTOMS. Prescriptions: Fenofibrate Nanocrystallized [Fenofibrate] 145 mg PO DAILY #30 tablet Levetiracetam [Keppra 500 mg Tablet] 500 mg PO Q12 #60 tablet Referrals: [facility] [Outside] - 04/26/20 I personally performed the services described in the documentation, reviewed and edited the documentation which was dictated to the scribe in my presence, and it accurately records my words and actions.
--- OUTSIDE RECORDS SUMMARY | 2020-04-26 17:23 | XMS REPORT ---
:1985 [facility] [address] [place] [address] Care Team Providers Name Role Phone Unavailable Unavailable Unavailable Allergies, Adverse Reactions, Alerts This patient has no known allergies or adverse reactions. Medications This patient has no known medications. Problems This patient has no known problems. Procedures This patient has no known procedures. Results This patient has no known results. Encounters Start End Encounter Admission Attending Care Care Encounter Date/Time Date/Time Type Type Clinicians Facility Department ID 2020-02-08 2020-02-08 Outpatient [facility] n [id number] 00:00:00 00:00:00 n [facility] Social History Social History Observation Description Sex Male Vital Signs This patient has no known vital signs.
[2020-04-26] MEDS ORDERED: MAGNESIUM SULFATE INJ 8 MEQ/2 ML IV ONE (17:39)
[2020-04-26] MEDS ORDERED: MAG HYDROX/AL HYDROX/SIMETH SUSP 30 ML UDCUP PO ONE (17:40)
[2020-04-26] MEDS ORDERED: LIDOCAINE 2% VISCOUS SOLN 15 ML UDCUP PO ONE (17:40)
[2020-04-26 18:39] VITALS: BP 122/84
== END 2020-04-26 19:31 | disposition home or self-care (01) ==
LOC: ER 15:45
DX: G40.909 Epilepsy, unspecified, not intractable, without status epilepticus (principal); F10.10 Alcohol abuse, uncomplicated; R10.816 Epigastric abdominal tenderness; R10.13 Epigastric pain; G89.29 Other chronic pain; E78.1 Pure hyperglyceridemia; F17.210 Nicotine dependence, cigarettes, uncomplicated; Z87.19 Personal history of other diseases of the digestive system; Z91.14 Patient's other noncompliance with medication regimen
CPT/HCPCS: 99284; 96375; 96365; 36415; 80177; 80307; 83690; 83735; 85025; 80053; J3490; J3475; J2060; J7030; J1953